=== PATIENT | male | born 1940 | race Caucasian/White ===

== ENCOUNTER 2022-03-23 20:04 | Inpatient (IN) ==
[2022-03-23] MEDS ORDERED: IOPAMIDOL 100 ML BOTTLE IV ONE (20:05)
[2022-03-23] MEDS ORDERED: 0.9 % SODIUM CHLORIDE 1,000 ML IV ONE ×3 (20:19→20:53)
[2022-03-23 20:40] LABS: POC Calcium, Ionized 1.08 (1.16-1.32); POC Creatinine 1.1 (0.6-1.2); POC Potassium 4.2 (3.3-5.1)
[2022-03-23 21:31] LABS: Basophils # (Auto) 0.03 K/mcL (0.00-0.30); Basophils % (Auto) 0.2 % (0.0-2.0); Eosinophils # (Auto) 0.02 K/mcL (0.00-0.70); Eosinophils % (Auto) 0.1 % (0.0-7.0); Hematocrit 37.9 % (40.1-51.0); Hemoglobin 13.5 g/dL (13.7-17.5); Lymphocytes # (Auto) 0.77 K/mcL (1.50-4.80); Lymphocytes % (Auto) 5.6 % (15.5-49.0); Mean Cell Volume 93.3 fL (80.0-100.0); Mean Corpuscular HGB Conc 35.6 g/dL (31.0-36.0); Mean Platelet Volume 9.4 fL (8.8-12.5); Monocytes # (Auto) 0.87 K/mcL (0.10-0.90); Monocytes % (Auto) 6.4 % (1.0-12.0); Neutrophils % (Auto) 87.1 % (38.0-78.0); Platelet Count 138 K/mcL (140-440); RBC 4.06 M/mcL (4.63-6.08); Red Cell Distribution Width 11.9 % (11.5-14.5); WBC 13.7 K/mcL (4.5-11.0)
[2022-03-23] MEDS ORDERED: ACETAMINOPHEN 1,000 MG/100 ML BAG IV ONE (21:48)
[2022-03-23] MEDS ORDERED: VANCOMYCIN 1,000 MG in 0.9 % SODIUM CHLORIDE 250 ML IV ONE (22:06)
[2022-03-23] MEDS ORDERED: morphine 4 MG/ML VIAL IV ONE (22:39)
[2022-03-23 22:46] LABS: Appearance,Urine CLEAR (Clear); Bilirubin,Urine Negative (Negative); Color,Urine YELLOW; Culture Indicated,Urine No; Glucose,Urine (UA) 50 mg/dL (Negative); Ketones,Urine 20 mg/dL (Negative); Leukocyte Esterase,Urine Negative /uL (Negative); Nitrate,Urine Negative (Negative); Protein,Urine Negative (Negative); Specific Gravity,Urine 1.025 (1.000-1.035); Urine Blood Negative (Negative)
--- NOTE | 2022-03-24 04:32 | Emergency Department Note ---
Weakness HPI General Chief complaint: Weakness Stated complaint: decreased level of conciousness, Ground level fall Time Seen by Provider: 03/23/22 20:39 Source: EMS Mode of arrival: EMS Limitations: no limitations History of Present Illness HPI Narrative: Narrative: 82-year-old male with a history of generalized weakness for the past 24 hours. History obtained from patient and primarily his son who says he suleiman triplett appears more weak and a bit "off" since yesterday. He has had 2 falls but unaware of any head injury. Patient is on blood thinners. He has a history of hypertension heart disease with some coronary stents Parkinson's and some UTI in the past. Son was not sure if perhaps he may have had a TIA or UTI. At baseline he has tremors but no reports of other acute focal neurologic deficits. At baseline patient is generally alert and oriented. Patient does appear weak and is able to answer some simple yes or no questions at this time. Denies any pain or injury denies any obvious cardiorespiratory complaints or abdominal complaints. Detail history difficult to obtain from patient Related Data Home Medications Medication Instructions Recorded Confirmed multivitamin (Multiple Vitamins 1 tab PO QAM 04/08/20 11/07/21 tablet) omega-3 fatty acids 1,000 mg 1,000 mg PO QDAY 04/08/20 11/07/21 capsule aspirin 81 mg tablet,delayed 81 mg PO QDAY 09/06/20 11/07/21 release cholecalciferol (vitamin D3) 125 125 mcg PO QDAY 09/06/20 11/07/21 mcg (5,000 unit) capsule coenzyme Q10 100 mg capsule 100 mg PO QDAY 09/06/20 11/07/21 fluocinolone acetonide oil 0.01 % 5 drp otic (ear) BID PRN Ear Wax 09/06/20 11/07/21 ear drops acetaminophen 325 mg tablet 650 mg PO Q4H PRN KENDALL, Mild-Mod 09/21/20 11/07/21 Joint Pain, Fever>99.9 magnesium hydroxide 400 mg/5 mL 30 ml PO QDAY PRN constipation 09/21/20 11/07/21 oral suspension (Milk of Magnesia) polyethylene glycol 3350 17 17 g PO QDAY PRN constipation 09/21/20 11/07/21 gram/dose oral powder (ClearLax) carbidopa ER 36.25 mg-levodopa 145 3 cap PO TID 09/08/21 11/07/21 mg capsule,extended release (Rytary) chlorhexidine gluconate 4 % 1 applic topical QDAY 09/08/21 11/07/21 topical liquid (Hibiclens) guaifenesin 600 mg tablet, 600 mg PO Q12H 09/08/21 11/07/21 extended release 12 hr ketorolac 0.5 % eye drops 1 drp ophthalmic (eye) Q12H 09/08/21 11/07/21 miconazole nitrate 2 % topical See Rx Instructions topical 09/08/21 11/07/21 powder (Remedy Antifungal) .COMPLEX zinc oxide-cod liver oil topical 1 applic topical BID 09/08/21 11/07/21 ointment Previous Rx's Medication Instructions Recorded docusate sodium 100 mg capsule 100 mg PO QDAY 90 days #90 caps 04/13/20 tamsulosin 0.4 mg capsule 0.4 mg PO BID 90 days #180 caps 04/21/21 clonidine HCl 0.1 mg tablet 0.1 mg PO Q8H PRN hypertensive 04/27/21 emergency #90 tabs levothyroxine 50 mcg tablet 50 mcg PO QDAY 90 days #90 tabs 10/10/21 lisinopril 20 mg tablet 20 mg PO BID 90 days #180 tabs 10/10/21 meloxicam 15 mg tablet 15 mg PO QDAY 90 days #90 tabs 10/10/21 venlafaxine 75 mg tablet 75 mg PO BID 90 days #180 tabs 11/08/21 metoprolol tartrate 100 mg tablet 100 mg PO BID 90 days #180 tabs 11/10/21 amlodipine 2.5 mg tablet 2.5 mg PO QDAY #90 tabs 12/13/21 hydrocodone 5 mg-acetaminophen 325 1 tab PO TID PRN pain #90 tabs 02/24/22 mg tablet nystatin 100,000 unit/gram topical 1 applic topical BID #60 grams 03/07/22 powder Allergies Allergy/AdvReac Type Severity Reaction Status Date / Time No Known Drug Allergies Allergy Verified 03/23/22 20:12 Review of Systems ROS ROS Narrative: Narrative: Limitations: ROS unobtainable due to patients medical condition PFSH Narrative Patient History Narrative: Narrative: Medical/Surgical/Family History All Active Problems (Updated 03/24/22 @ 04:35 by Gutierrez Roblero DO) Cellulitis of back (Acute) Sepsis (Acute) Generalized weakness (Acute) Falls frequently (Acute) Head injury (Acute) Fall (Acute) Abrasion of forehead (Acute) Fall (Acute) Rib pain on left side (Acute) Medicare annual wellness visit, initial (Acute) Chronic pain (Chronic) Lumbar radiculopathy (Chronic) Lumbar stenosis with neurogenic claudication (Chronic) Lower back pain (Chronic) Constipation (Chronic) BPH (benign prostatic hyperplasia) (Chronic) Hypothyroid (Chronic) Thyroid gland disease (Chronic) Joint pain (Chronic) High cholesterol (Chronic) High blood pressure (Chronic) Parkinsons disease (Chronic ~2012) History of heart artery stent (Chronic ~2008) Heart attack (Chronic ~2008) Daytime sleepiness (Chronic) Muscle pain (Chronic ~2012) Arthritis (Chronic) Anxiety (Chronic) Medical History Anxiety Arthritis BPH (benign prostatic hyperplasia) Chronic pain Constipation Daytime sleepiness Heart attack (~2008) High blood pressure High cholesterol Hypothyroid Joint pain Lower back pain Lumbar radiculopathy Lumbar stenosis with neurogenic claudication Medicare annual wellness visit, initial Muscle pain (~2012) Parkinsons disease (~2012) Thyroid gland disease Surgical History History of heart artery stent (~2008) Family History Aunt Dementia Mother Arthritis, rheumatoid Parkinson disease Father Polycystic kidney disease Hypertension Sister Parkinson disease Social History Smoking Status: Former smoker Alcohol Intake Frequency: a few times a week Substance Use: does not use Exam Narrative Narrative: Narrative: Constitutional: normally developed, ill-appearing Head: Normocephalic, atraumatic, Eyes: No Icterus, PERRLA EOMI ENT: Dry mucus membranes, Neck: Supple, no midline tenderness Cardiac: Normal heart sounds, palpable peripheral pulses, no peripheral edema Pulmonary: Normal respiratory effort. Breath sounds clear, no wheeze, rhonchi, rales, Gastrointestinal: Abdomen soft, non-distended, non-tender, Musculoskeletal: No gross deformities, range of motion intact in all 4 extremities, however has equal generalized weakness throughout. Patient has a contusion and hematoma and bruise to his right upper thoracic back/posterior axillary area. Skin: warm, dry. Patient has a large area of cellulitis appearance with erythema warmth to his lumbar area. He has a sacral decubitus ulcer. Neuro: Alert and orientedx2 has generalized weakness but no gross focal deficit, has baseline tremors to his upper extremities.. General Limitations: no limitations Course Vital Signs Vital signs: Vital Signs Temperature 37.4 C H 03/23/22 20:06 Pulse Rate 103 H 03/23/22 20:06 Respiratory Rate 33 H 03/23/22 20:06 Blood Pressure 130/52 03/23/22 20:06 Pulse Oximetry (%) 91 03/23/22 20:06 Oxygen Delivery Method 03/23/22 20:06 Temperature 37.2 C 03/24/22 06:34 Pulse Rate 73 03/24/22 06:35 Respiratory Rate 27 H 03/24/22 06:35 Blood Pressure 135/55 03/24/22 06:31 Pulse Oximetry (%) 94 03/24/22 06:35 Oxygen Delivery Method 03/23/22 21:14 [facility] MDM Narrative Medical decision making narrative: Narrative: 82-year-old male with generalized weakness x for at least 24 hours family was concerned he is fallen twice a mostly suspected an infection or UTI also were not sure if this could be a TIA. Work-up is initiated. Does not meet any stroke criteria and no obvious focal deficits. CT of the head per direct radiology no acute findings and no evidence of traumatic bleed CBC does have a leukocytosis 13.7 VBG shows mild alkalosis 7.53 normal lactic acid 1.1 Twelve-lead EKG heart rate 103, does appear to be sinus although there is a fair bit of artifact, less likely flutter. QRS QTC within normal, no STEMI criteria Patient did spike a low-grade fever was given Tylenol he has received, patient has received just over 2 L of fluid consistent with 30 cc/kg ideal body weight adjusted for elevated BMI He was given vancomycin for what appears to be cellulitis to his low back/lumbar region X-ray per my preliminary interpretation no obvious acute cardiopulmonary process but question possible clavicle fracture or irregular lucent appearance, Clavicle x-ray per my preliminary interpretation no obvious fracture although does have arthritis of the shoulde Given his multiple falls on thinners and contusions did obtain CT of his chest abdomen pelvis: Per direct radiology no acute traumatic injury however there does appear to be incidental "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 Grossman, he stated this can simply be further evaluated and managed as an outpatient, patient does not require transfer/admission to a higher level of care from a vascular standpoint, can continue to be admitted here at [facility] for his sepsis/infection if necessary Reevaluation vitals are all stable his trace tachycardia has resolved, he also appears more comfortable. Discussed with mixing house operator as well as patient's family, will hold him in the ER overnight with plans to admit here in the morning when bed becomes available. 0700: end of my shift signed out to Dr Stanton Lab Data Result diagrams: 03/23/22 20:55 Labs: Lab Results 03/23/22 03/23/22 03/23/22 Range/Units 20:35 20:35 20:55 WBC 13.7 H (4.5-11.0) K/mcL RBC 4.06 L (4.63-6.08) M/mcL Hgb 13.5 L (13.7-17.5) g/dL Hct 37.9 L (40.1-51.0) % POC Hct 38.0 L (41-55) MCV 93.3 (80.0-100.0) fL MCH 33.3 (26.0-34.0) pg MCHC 35.6 (31.0-36.0) g/dL RDW 11.9 (11.5-14.5) % Plt Count 138 L (140-440) K/mcL MPV 9.4 (8.8-12.5) fL Immature Gran % (Auto) 0.6 H (0.0-0.5) % Neut % (Auto) 87.1 H (38.0-78.0) % Lymph % (Auto) 5.6 L (15.5-49.0) % Hamilton % (Auto) 6.4 (1.0-12.0) % Eos % (Auto) 0.1 (0.0-7.0) % Baso % (Auto) 0.2 (0.0-2.0) % Lymph # (Auto) 0.77 L (1.50-4.80) K/mcL Hamilton # (Auto) 0.87 (0.10-0.90) K/mcL Eos # (Auto) 0.02 (0.00-0.70) K/mcL Baso # (Auto) 0.03 (0.00-0.30) K/mcL Immature Gran # 0.08 H (0.00-0.05) K/mcl Absolute Neutrophils 11.89 H (1.80-8.00) K/mcL POC VBG pH 7.53 H (7.32-7.42) POC VBG pCO2 at Temp 30.6 L (41-51) POC VBG pO2 120 H (25-40) POC VBG HCO3 25.5 (24-28) POC VBG Total CO2 26.0 (25-29) POC Venous O2 Sat 99.0 H (40-70) POC VBG Base Excess 3.0 H (-2-2) VBG Lactic Acid 1.1 (0.5-2) POC Sodium 130 L (133-145) POC Potassium 4.2 (3.3-5.1) POC Chloride 98 (96-108) POC Total CO2 25.0 (22-30) POC BUN 30 H (6-20) POC Creatinine 1.1 (0.6-1.2) POC Glucose 144 H (70-105) POC WB Ioniz Calcium 1.08 L (1.16-1.32) Urine Color Urine Appearance (Clear) Urine pH (5.0-9.0) Ur Specific [place] (1.000-1.035) Urine Protein (Negative) mg/dL Urine Glucose (UA) (Negative) mg/dL Urine Ketones (Negative) mg/dL Urine Occult Blood (Negative) mg/dL Urine Nitrate (Negative) Urine Bilirubin (Negative) mg/dL Urine Urobilinogen mg/dL Ur Leukocyte Esterase (Negative) /uL Ur Culture Indicated? POC Troponin I (0.00-0.08) 03/23/22 03/23/22 Range/Units 21:01 21:52 WBC (4.5-11.0) K/mcL RBC (4.63-6.08) M/mcL Hgb (13.7-17.5) g/dL Hct (40.1-51.0) % POC Hct (41-55) MCV (80.0-100.0) fL MCH (26.0-34.0) pg MCHC (31.0-36.0) g/dL RDW (11.5-14.5) % Plt Count (140-440) K/mcL MPV (8.8-12.5) fL Immature Gran % (Auto) (0.0-0.5) % Neut % (Auto) (38.0-78.0) % Lymph % (Auto) (15.5-49.0) % Hamilton % (Auto) (1.0-12.0) % Eos % (Auto) (0.0-7.0) % Baso % (Auto) (0.0-2.0) % Lymph # (Auto) (1.50-4.80) K/mcL Hamilton # (Auto) (0.10-0.90) K/mcL Eos # (Auto) (0.00-0.70) K/mcL Baso # (Auto) (0.00-0.30) K/mcL Immature Gran # (0.00-0.05) K/mcl Absolute Neutrophils (1.80-8.00) K/mcL POC VBG pH (7.32-7.42) POC VBG pCO2 at Temp (41-51) POC VBG pO2 (25-40) POC VBG HCO3 (24-28) POC VBG Total CO2 (25-29) POC Venous O2 Sat (40-70) POC VBG Base Excess (-2-2) VBG Lactic Acid (0.5-2) POC Sodium (133-145) POC Potassium (3.3-5.1) POC Chloride (96-108) POC Total CO2 (22-30) POC BUN (6-20) POC Creatinine (0.6-1.2) POC Glucose (70-105) POC WB Ioniz Calcium (1.16-1.32) Urine Color Yellow Urine Appearance Clear (Clear) Urine pH 5.0 (5.0-9.0) Ur Specific [place] 1.025 (1.000-1.035) Urine Protein Negative (Negative) mg/dL Urine Glucose (UA) 50 A (Negative) mg/dL Urine Ketones 20 A (Negative) mg/dL Urine Occult Blood Negative (Negative) mg/dL Urine Nitrate Negative (Negative) Urine Bilirubin Negative (Negative) mg/dL Urine Urobilinogen 2.0 A mg/dL Ur Leukocyte Esterase Negative (Negative) /uL Ur Culture Indicated? No POC Troponin I < 0.02 (0.00-0.08) Discharge Plan Patient/Caregiver Discharge Instructions Pt seen by OFFICE SUPERVISOR/PA only: No Clinical Impression: Cellulitis of back, Sepsis, Generalized weakness, Falls frequently Patient Disposition: Xfer As Inpt ([facility]) Condition: Serious Follow up with: Marcus Dawson MD [Primary Care Provider] - Prescriptions: No Action tamsulosin 0.4 mg capsule 0.4 mg PO BID 90 Days Qty: 180 3RF clonidine HCl 0.1 mg tablet 0.1 mg PO Q8H PRN (Reason: hypertensive emergency) Qty: 90 0RF Rx Instructions: As needed for BP > 160/100 levothyroxine 50 mcg tablet 50 mcg PO QDAY 90 Days Qty: 90 3RF lisinopril 20 mg tablet 20 mg PO BID 90 Days Qty: 180 3RF meloxicam 15 mg tablet 15 mg PO QDAY 90 Days Qty: 90 3RF venlafaxine 75 mg tablet 75 mg PO BID 90 Days Qty: 180 1RF metoprolol tartrate 100 mg tablet 100 mg PO BID 90 Days Qty: 180 3RF amlodipine 2.5 mg tablet 2.5 mg PO QDAY Qty: 90 1RF hydrocodone-acetaminophen 5-325 mg tablet 1 tab PO TID PRN (Reason: pain) Qty: 90 0RF nystatin 100,000 unit/gram powder 1 applic topical BID Qty: 60 1RF docusate sodium 100 mg capsule 100 mg PO QDAY 90 Days Qty: 90 1RF omega-3 fatty acids 1,000 mg capsule 1,000 mg PO QDAY multivitamin [Multiple Vitamins] Tablet 1 tab PO QAM aspirin 81 mg tablet,delayed release (DR/EC) 81 mg PO QDAY coenzyme Q10 100 mg capsule 100 mg PO QDAY cholecalciferol (vitamin D3) 125 mcg (5,000 unit) capsule 125 mcg PO QDAY fluocinolone acetonide oil 0.01 % drops 5 drp otic (ear) BID PRN (Reason: Ear Wax) Rytary 36.25-145 mg capsule, extended release 3 cap PO TID ketorolac 0.5 % drops 1 drp ophthalmic (eye) Q12H Label Comments: [NO ORIGINAL SIG] zinc oxide-cod liver oil Ointment 1 applic topical BID Label Comments: Desitin Ointment guaifenesin 600 mg tablet extended release 12hr 600 mg PO Q12H chlorhexidine gluconate [Hibiclens] 4 % liquid 1 applic topical QDAY Remedy Antifungal 2 % powder See Rx Instructions topical .COMPLEX Rx Instructions: topical; acetaminophen 325 mg tablet 650 mg PO Q4H PRN (Reason: KENDALL, Mild-Mod Joint Pain, Fever>99.9) polyethylene glycol 3350 [ClearLax] 17 gram/dose powder 17 g PO QDAY PRN (Reason: constipation) magnesium hydroxide [Milk of Magnesia] 400 mg/5 mL suspension 30 ml PO QDAY PRN (Reason: constipation)
--- NOTE | 2022-03-24 06:06 | Cat Scan Report ---
INDICATION: mult falls, trunkal bruising, also ?clavicle fx COMPARISON: Lumbar MRI scan dated 06/21/2020 TECHNIQUE: Axial images were obtained through the chest,abdomen and pelvis. Sagittally and coronally reformatted images. 90ml Isovue 370 injected intravenously. Oral contrast material was not administered FINDINGS: Examination was initially interpreted by [facility] Chest CT: Lungs:No pulmonary contusion or focal pulmonary parenchymal infiltrate. No posttraumatic abnormality. There is mild dependent atelectasis and probable mild lower lobe bronchiectasis Mediastinum:No mediastinal hematoma. Thoracic aorta is negative. No dissection or aneurysmal dilatation Heart:No significant cardiomegaly. No pericardial effusion. There is severe coronary artery calcification Pleura:There is no pneumothorax or hemothorax Axilla, supraclavicular regions, chest wall:No chest wall hematoma. No acute or focal abnormality. Musculoskeletal:No thoracic compression fracture. No acute rib fracture. Scapula and clavicles are negative. Sternum is normal. Severe degenerative joint disease in the glenohumeral joint bilaterally Abdomen/Pelvis: Liver:No hepatic injury. No hepatic laceration or fracture. No perihepatic hemorrhage Gallbladder, bilary:Multiple calcified gallstones. No gallbladder wall thickening or pericholecystic fluid. No bile duct dilatation Spleen:Spleen is negative. No splenic injury. No perisplenic hemorrhage. Normal enhancement of splenic and portal veins Pancreas:Pancreas is atrophic. There is no pancreatic mass. No posttraumatic abnormality Adrenal glands:Negative Kidneys,ureters,bladder:No perinephric hemorrhage. No posttraumatic abnormality. There is a 3 cm left lower pole renal cyst. No hydroureter. No ureteral calculus. No evidence for ruptured bladder. Probable [place] diverticulum in the superior aspects of the bladder. Gastrointestinal:Prominent fecal material within the colon consistent with constipation. There may be distal colonic impaction. There is no diverticulitis. No detectable colonic mass Negative small bowel. No mechanical small bowel obstruction. No bowel wall thickening. No focal abnormality. Negative stomach and duodenum. No focal abnormality. Appendix: The appendix is negative. No evidence for appendicitis Vascular:Severe calcified atherosclerotic plaque throughout the abdominal aorta as well as the common and internal iliac arteries. There is calcification of the common femoral arteries. There is no abdominal aortic dilatation. No abdominal aortic aneurysm. There is discontinuity of calcification in the infrarenal abdominal aorta. Right posterolateral penetrating ulcer is possible. There is no evidence for leaking aneurysm. There is calcification at the origins of the celiac trunk and superior mesenteric artery. There is probable stenosis at the origin of the superior mesenteric artery. Renal arteries are calcified with probable bilateral renal artery stenosis. Lymphatic:No pathologic retroperitoneal or mesenteric adenopathy Mesentery, peritoneum:No free intraperitoneal fluid. No intra-abdominal abscess. There is no hemoperitoneum or pneumoperitoneum Reproductive:Prostate is not significantly enlarged Musculoskeletal:Compression deformity of the L2 vertebral body. This was demonstrated on 06/21/2020. There is mild interval progression. There is severe multilevel degenerative disc disease in the lumbar spine. Probable chronic fractures of the right L1, L2, L3 transverse processes. Sacrum is negative. Pelvis is negative. No acute fracture. Hips are negative. No anterior abdominal wall or inguinal hernia. No significant subcutaneous hematoma or focal abnormality. IMPRESSION: 1. No acute posttraumatic abnormality 2. Mild bilateral dependent atelectasis 3. Severe degenerative joint disease in the glenohumeral joint bilaterally 4. Mild compression deformity of L2 vertebral body. Chronic fractures of the L1-L3 right transverse processes 5. Severe degenerative disc disease 6. Extensive atherosclerotic calcification with severe coronary artery calcification. 7. Discontinuity of the infrarenal abdominal aortic calcification. Penetrating ulcer is possible. There is no evidence for leaking aneurysm or acute abnormality 8. 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 Cholelithiasis 10. Findings consistent with constipation or mild distal colonic impaction The exam was performed using radiation dose optimization techniques including, but not limited to, automated exposure control, adjustment of the mA and/or kV according to patient size and use of iterative reconstruction technique. Interpreted and Authenticated by: Mickey Stephens 03/24/22
--- NOTE | 2022-03-24 06:43 | XRay Report ---
INDICATION: ?fracture on CXR TECHNIQUE: 2 view right clavicle COMPARISON: Chest x-ray dated 03/23/2022 FINDINGS: Negative right clavicle. No acute fracture. There is severe degenerative disease within the right glenohumeral joint. No acute fracture or dislocation IMPRESSION: No acute abnormality. No right clavicle fracture Interpreted and Authenticated by: Mickey Stephens 03/24/22
--- NOTE | 2022-03-24 06:44 | XRay Report ---
INDICATION: weakness, falls TECHNIQUE: AP portable upright chest x-ray COMPARISON: Previous chest x-ray dated 09/08/2020 FINDINGS: Lungs:Lungs are negative. No focal pulmonary parenchymal infiltrate or mass Heart, vascular:Heart size is unchanged. No evidence for congestive heart failure. Thoracic aorta is ectatic and tortuous Mediastinum, elizabeth:No mediastinal widening. No hilar mass Pleura:No pleural fluid. No pleural-based mass or calcification Skeletal:No acute rib fracture. Severe degenerative disease in both glenohumeral joints IMPRESSION: No acute abnormality Interpreted and Authenticated by: Mickey Stephens 03/24/22
--- NOTE | 2022-03-24 06:47 | Cat Scan Report ---
INDICATION: falls on thinners, confusion COMPARISON: Previous brain CT scan dated 01/17/2021 TECHNIQUE: Axial noncontrast-enhanced images through the brain. Sagittally and coronally reformatted images. FINDINGS: Examination was initially interpreted by [facility] Patient has uncontrollable tremors and there is some motion induced image degradation Cerebral hemispheres:Negative. No intra-axial abnormality. No intra-axial hematoma. No localized mass effect.Brain volume is within normal limits for age. Periventricular white matter is negative without significant attenuation abnormality. Brainstem and cerebellum:No intra-axial abnormality Extra-axial:No acute hemorrhage. No subdural or epidural hematoma. No subarachnoid hemorrhage. Basilar cisterns are normal Calvarial:No calvarial fracture. No lytic lesion. No scalp hematoma. No soft tissue gas or foreign body Temporal bones are negative. No destructive lesions Soft tissue, orbits, sinuses:Inflammatory disease with air-fluid level in a left sphenoid sinus. IMPRESSION: 1. No acute intracranial abnormality. No intracranial hemorrhage 2. Mild left sphenoid sinusitis The exam was performed using radiation dose optimization techniques including, but not limited to, automated exposure control, adjustment of the mA and/or kV according to patient size and use of iterative reconstruction technique. Interpreted and Authenticated by: Mickey Stephens 03/24/22
--- NOTE | 2022-03-24 08:44 | Emergency Department Note ---
Course Course Course Narrative: Assumed care from Dr. Roblero. Patient is awaiting admission for cellulitis of the back. Please see Dr. Castellanos's note for more detail. "Narrative: 82-year-old male with a history of generalized weakness for the past 24 hours. History obtained from patient and primarily his son who says he simply appears more weak and a bit "off" since yesterday. He has had 2 falls but unaware of any head injury. Patient is on blood thinners. He has a history of hypertension heart disease with some coronary stents Parkinson's and some UTI in the past. Son was not sure if perhaps he may have had a TIA or UTI. At baseline he has tremors but no reports of other acute focal neurologic defi cits. At baseline patient is generally alert and oriented. Patient does appear weak and is able to answer some simple yes or no questions at this time. Denies any pain or injury denies any obvious cardiorespiratory complaints or abdominal complaints. Detail history difficult to obtain from patient" Patient has received normal saline IV x3 and vancomycin 1 g IV for the diagnosis of cellulitis of the back. On examination patient has stage I decubitus ulcer to gluteal folds with black/blue discoloration he has surrounding redness redness and mild edema and warmth from gluteal region to mid posterior chest. We will repeat the labs. Will give Rocephin 1 g IV and contact wound clinic as well. We will talk to hospitalist when the bed is available for admission. Case discussed with Dr. landrum who will evaluate the patient for admission. Second dose of vancomycin 1 g IV given Vital Signs Vital signs: Vital Signs Temperature 99.4 F H 03/23/22 20:06 Pulse Rate 103 H 03/23/22 20:06 Respiratory Rate 33 H 03/23/22 20:06 Blood Pressure 130/52 03/23/22 20:06 Pulse Oximetry (%) 91 03/23/22 20:06 Oxygen Delivery Method 03/23/22 20:06 Temperature 97.8 F 03/25/22 03:40 Pulse Rate 79 03/25/22 03:40 Respiratory Rate 16 03/25/22 03:40 Blood Pressure 148/77 03/25/22 03:40 Pulse Oximetry (%) 90 03/25/22 03:40 Oxygen Delivery Method 03/25/22 03:40 MDM MDM Narrative Medical decision making narrative: Narrative: Lab Data Result diagrams: 03/25/22 06:33 03/24/22 09:07 Labs: Lab Results 03/23/22 03/23/22 03/23/22 Range/Units 20:35 20:35 20:55 WBC 13.7 H (4.5-11.0) K/mcL RBC 4.06 L (4.63-6.08) M/mcL Hgb 13.5 L (13.7-17.5) g/dL Hct 37.9 L (40.1-51.0) % POC Hct 38.0 L (41-55) MCV 93.3 (80.0-100.0) fL MCH 33.3 (26.0-34.0) pg MCHC 35.6 (31.0-36.0) g/dL RDW 11.9 (11.5-14.5) % Plt Count 138 L (140-440) K/mcL MPV 9.4 (8.8-12.5) fL Immature Gran % (Auto) 0.6 H (0.0-0.5) % Neut % (Auto) 87.1 H (38.0-78.0) % Lymph % (Auto) 5.6 L (15.5-49.0) % [place] % (Auto) 6.4 (1.0-12.0) % Eos % (Auto) 0.1 (0.0-7.0) % Baso % (Auto) 0.2 (0.0-2.0) % Lymph # (Auto) 0.77 L (1.50-4.80) K/mcL [place] # (Auto) 0.87 (0.10-0.90) K/mcL Eos # (Auto) 0.02 (0.00-0.70) K/mcL Baso # (Auto) 0.03 (0.00-0.30) K/mcL Immature Gran # 0.08 H (0.00-0.05) K/mcl Absolute Neutrophils 11.89 H (1.80-8.00) K/mcL POC VBG pH 7.53 H (7.32-7.42) POC VBG pCO2 at Temp 30.6 L (41-51) POC VBG pO2 120 H (25-40) POC VBG HCO3 25.5 (24-28) POC VBG Total CO2 26.0 (25-29) POC Venous O2 Sat 99.0 H (40-70) POC VBG Base Excess 3.0 H (-2-2) VBG Lactic Acid 1.1 (0.5-2) POC Sodium 130 L (133-145) Sodium (133-145) mmol/L POC Potassium 4.2 (3.3-5.1) Potassium (3.3-5.1) mmol/L POC Chloride 98 (96-108) Chloride (96-108) mmol/L Carbon Dioxide (22-30) mmol/L POC Total CO2 25.0 (22-30) Anion Gap (8.0-16.0) POC BUN 30 H (6-20) BUN (8-23) mg/dL Creatinine (0.7-1.2) mg/dL POC Creatinine 1.1 (0.6-1.2) GFR Calculation Glucose (70-105) mg/dL POC Glucose 144 H (70-105) Calcium (8.6-10.4) mg/dL POC WB Ioniz Calcium 1.08 L (1.16-1.32) Total Bilirubin (0.1-1.0) mg/dL AST (<40) U/L ALT (<40) U/L Alkaline Phosphatase (39-117) U/L C-Reactive Protein (0.03-0.80) mg/dL Total Protein (5.9-8.4) gm/dL Albumin (3.2-5.2) gm/dL Globulin (2.2-3.7) gm/dL Albumin/Globulin Ratio (1.0-2.3) Procalcitonin (<0.10) ng/mL Urine Color Urine Appearance (Clear) Urine pH (5.0-9.0) Ur Specific [place] (1.000-1.035) Urine Protein (Negative) mg/dL Urine Glucose (UA) (Negative) mg/dL Urine Ketones (Negative) mg/dL Urine Occult Blood (Negative) mg/dL Urine Nitrate (Negative) Urine Bilirubin (Negative) mg/dL Urine Urobilinogen mg/dL Ur Leukocyte Esterase (Negative) /uL Ur Culture Indicated? POC Troponin I (0.00-0.08) 09/29/22 09/29/22 09/30/22 Range/Units 21:01 21:52 09:07 WBC (4.5-11.0) K/mcL RBC (4.63-6.08) M/mcL Hgb (13.7-17.5) g/dL Hct (40.1-51.0) % POC Hct (41-55) MCV (80.0-100.0) fL MCH (26.0-34.0) pg MCHC (31.0-36.0) g/dL RDW (11.5-14.5) % Plt Count (140-440) K/mcL MPV (8.8-12.5) fL Immature Gran % (Auto) (0.0-0.5) % Neut % (Auto) (38.0-78.0) % Lymph % (Auto) (15.5-49.0) % [place] % (Auto) (1.0-12.0) % Eos % (Auto) (0.0-7.0) % Baso % (Auto) (0.0-2.0) % Lymph # (Auto) (1.50-4.80) K/mcL [place] # (Auto) (0.10-0.90) K/mcL Eos # (Auto) (0.00-0.70) K/mcL Baso # (Auto) (0.00-0.30) K/mcL Immature Gran # (0.00-0.05) K/mcl Absolute Neutrophils (1.80-8.00) K/mcL POC VBG pH (7.32-7.42) POC VBG pCO2 at Temp (41-51) POC VBG pO2 (25-40) POC VBG HCO3 (24-28) POC VBG Total CO2 (25-29) POC Venous O2 Sat (40-70) POC VBG Base Excess (-2-2) VBG Lactic Acid 1.2 (0.5-2) POC Sodium (133-145) Sodium (133-145) mmol/L POC Potassium (3.3-5.1) Potassium (3.3-5.1) mmol/L POC Chloride (96-108) Chloride (96-108) mmol/L Carbon Dioxide (22-30) mmol/L POC Total CO2 (22-30) Anion Gap (8.0-16.0) POC BUN (6-20) BUN (8-23) mg/dL Creatinine (0.7-1.2) mg/dL POC Creatinine (0.6-1.2) GFR Calculation Glucose (70-105) mg/dL POC Glucose (70-105) Calcium (8.6-10.4) mg/dL POC WB Ioniz Calcium (1.16-1.32) Total Bilirubin (0.1-1.0) mg/dL AST (<40) U/L ALT (<40) U/L Alkaline Phosphatase (39-117) U/L C-Reactive Protein (0.03-0.80) mg/dL Total Protein (5.9-8.4) gm/dL Albumin (3.2-5.2) gm/dL Globulin (2.2-3.7) gm/dL Albumin/Globulin Ratio (1.0-2.3) Procalcitonin (<0.10) ng/mL Urine Color Yellow Urine Appearance Clear (Clear) Urine pH 5.0 (5.0-9.0) Ur Specific [place] 1.025 (1.000-1.035) Urine Protein Negative (Negative) mg/dL Urine Glucose (UA) 50 A (Negative) mg/dL Urine Ketones 20 A (Negative) mg/dL Urine Occult Blood Negative (Negative) mg/dL Urine Nitrate Negative (Negative) Urine Bilirubin Negative (Negative) mg/dL Urine Urobilinogen 2.0 A mg/dL Ur Leukocyte Esterase Negative (Negative) /uL Ur Culture Indicated? No POC Troponin I < 0.02 (0.00-0.08) 03/24/22 03/24/22 03/24/22 Range/Units 09:07 09:07 09:07 WBC 11.6 H (4.5-11.0) K/mcL RBC 3.75 L (4.63-6.08) M/mcL Hgb 12.5 L (13.7-17.5) g/dL Hct 35.4 L (40.1-51.0) % POC Hct (41-55) MCV 94.4 (80.0-100.0) fL MCH 33.3 (26.0-34.0) pg MCHC 35.3 (31.0-36.0) g/dL RDW 12.2 (11.5-14.5) % Plt Count 122 L (140-440) K/mcL MPV 8.9 (8.8-12.5) fL Immature Gran % (Auto) 0.4 (0.0-0.5) % Neut % (Auto) 80.7 H (38.0-78.0) % Lymph % (Auto) 9.5 L (15.5-49.0) % [place] % (Auto) 8.0 (1.0-12.0) % Eos % (Auto) 1.1 (0.0-7.0) % Baso % (Auto) 0.3 (0.0-2.0) % Lymph # (Auto) 1.10 L (1.50-4.80) K/mcL [place] # (Auto) 0.92 H (0.10-0.90) K/mcL Eos # (Auto) 0.13 (0.00-0.70) K/mcL Baso # (Auto) 0.03 (0.00-0.30) K/mcL Immature Gran # 0.05 (0.00-0.05) K/mcl Absolute Neutrophils 9.33 H (1.80-8.00) K/mcL POC VBG pH (7.32-7.42) POC VBG pCO2 at Temp (41-51) POC VBG pO2 (25-40) POC VBG HCO3 (24-28) POC VBG Total CO2 (25-29) POC Venous O2 Sat (40-70) POC VBG Base Excess (-2-2) VBG Lactic Acid (0.5-2) POC Sodium (133-145) Sodium 131 L (133-145) mmol/L POC Potassium (3.3-5.1) Potassium 4.2 (3.3-5.1) mmol/L POC Chloride (96-108) Chloride 97 (96-108) mmol/L Carbon Dioxide 24 (22-30) mmol/L POC Total CO2 (22-30) Anion Gap 10.0 (8.0-16.0) POC BUN (6-20) BUN 22 (8-23) mg/dL Creatinine 0.9 (0.7-1.2) mg/dL POC Creatinine (0.6-1.2) GFR Calculation 79 Glucose 105 (70-105) mg/dL POC Glucose (70-105) Calcium 8.3 L (8.6-10.4) mg/dL POC WB Ioniz Calcium (1.16-1.32) Total Bilirubin 1.7 H (0.1-1.0) mg/dL AST 21 (<40) U/L ALT < 5 (<40) U/L Alkaline Phosphatase 85 (39-117) U/L C-Reactive Protein 15.50 H (0.03-0.80) mg/dL Total Protein 5.9 (5.9-8.4) gm/dL Albumin 3.2 (3.2-5.2) gm/dL Globulin 2.7 (2.2-3.7) gm/dL Albumin/Globulin Ratio 1.2 (1.0-2.3) Procalcitonin (<0.10) ng/mL Urine Color Urine Appearance (Clear) Urine pH (5.0-9.0) Ur Specific [place] (1.000-1.035) Urine Protein (Negative) mg/dL Urine Glucose (UA) (Negative) mg/dL Urine Ketones (Negative) mg/dL Urine Occult Blood (Negative) mg/dL Urine Nitrate (Negative) Urine Bilirubin (Negative) mg/dL Urine Urobilinogen mg/dL Ur Leukocyte Esterase (Negative) /uL Ur Culture Indicated? POC Troponin I (0.00-0.08) 03/24/22 Range/Units 09:07 WBC (4.5-11.0) K/mcL RBC (4.63-6.08) M/mcL Hgb (13.7-17.5) g/dL Hct (40.1-51.0) % POC Hct (41-55) MCV (80.0-100.0) fL MCH (26.0-34.0) pg MCHC (31.0-36.0) g/dL RDW (11.5-14.5) % Plt Count (140-440) K/mcL MPV (8.8-12.5) fL Immature Gran % (Auto) (0.0-0.5) % Neut % (Auto) (38.0-78.0) % Lymph % (Auto) (15.5-49.0) % [place] % (Auto) (1.0-12.0) % Eos % (Auto) (0.0-7.0) % Baso % (Auto) (0.0-2.0) % Lymph # (Auto) (1.50-4.80) K/mcL [place] # (Auto) (0.10-0.90) K/mcL Eos # (Auto) (0.00-0.70) K/mcL Baso # (Auto) (0.00-0.30) K/mcL Immature Gran # (0.00-0.05) K/mcl Absolute Neutrophils (1.80-8.00) K/mcL POC VBG pH (7.32-7.42) POC VBG pCO2 at Temp (41-51) POC VBG pO2 (25-40) POC VBG HCO3 (24-28) POC VBG Total CO2 (25-29) POC Venous O2 Sat (40-70) POC VBG Base Excess (-2-2) VBG Lactic Acid (0.5-2) POC Sodium (133-145) Sodium (133-145) mmol/L POC Potassium (3.3-5.1) Potassium (3.3-5.1) mmol/L POC Chloride (96-108) Chloride (96-108) mmol/L Carbon Dioxide (22-30) mmol/L POC Total CO2 (22-30) Anion Gap (8.0-16.0) POC BUN (6-20) BUN (8-23) mg/dL Creatinine (0.7-1.2) mg/dL POC Creatinine (0.6-1.2) GFR Calculation Glucose (70-105) mg/dL POC Glucose (70-105) Calcium (8.6-10.4) mg/dL POC WB Ioniz Calcium (1.16-1.32) Total Bilirubin (0.1-1.0) mg/dL AST (<40) U/L ALT (<40) U/L Alkaline Phosphatase (39-117) U/L C-Reactive Protein (0.03-0.80) mg/dL Total Protein (5.9-8.4) gm/dL Albumin (3.2-5.2) gm/dL Globulin (2.2-3.7) gm/dL Albumin/Globulin Ratio (1.0-2.3) Procalcitonin 0.15 H (<0.10) ng/mL Urine Color Urine Appearance (Clear) Urine pH (5.0-9.0) Ur Specific [place] (1.000-1.035) Urine Protein (Negative) mg/dL Urine Glucose (UA) (Negative) mg/dL Urine Ketones (Negative) mg/dL Urine Occult Blood (Negative) mg/dL Urine Nitrate (Negative) Urine Bilirubin (Negative) mg/dL Urine Urobilinogen mg/dL Ur Leukocyte Esterase (Negative) /uL Ur Culture Indicated? POC Troponin I (0.00-0.08) ED POC Tests ED POC Tests: HIMA - SARS Antigen Negative Discharge Plan Patient/Caregiver Discharge Instructions Pt seen by [employer]PECTOR/PA only: No Clinical Impression: Cellulitis of back, Sepsis, Generalized weakness, Falls frequently Patient Disposition: Xfer As Inpt ([facility]) Condition: Serious Discharge Date/Time: 03/24/22 14:08
[2022-03-24] MEDS ORDERED: cefTRIAXone 1 GM VIAL IV ONE (08:47)
[2022-03-24] MEDS ORDERED: VENLAFAXINE 75 MG TABLET PO SCH (09:00)
[2022-03-24] MEDS ORDERED: amLODIPine 5 MG TABLET PO SCH (09:00)
[2022-03-24] MEDS ORDERED: LEVOTHYROXINE 50 MCG TABLET PO SCH (09:00)
[2022-03-24] MEDS ORDERED: METOPROLOL TARTRATE 50 MG TABLET PO SCH (09:00)
[2022-03-24] MEDS ORDERED: LISINOPRIL 20 MG TABLET PO SCH (09:00)
[2022-03-24] MEDS ORDERED: MELOXICAM 7.5 MG TABLET PO SCH (09:00)
[2022-03-24 09:57] LABS: Basophils # (Auto) 0.03 K/mcL (0.00-0.30); Basophils % (Auto) 0.3 % (0.0-2.0); Eosinophils # (Auto) 0.13 K/mcL (0.00-0.70); Eosinophils % (Auto) 1.1 % (0.0-7.0); Hematocrit 35.4 % (40.1-51.0); Hemoglobin 12.5 g/dL (13.7-17.5); Lymphocytes % (Auto) 9.5 % (15.5-49.0); Mean Cell Volume 94.4 fL (80.0-100.0); Mean Corpuscular HGB Conc 35.3 g/dL (31.0-36.0); Mean Platelet Volume 8.9 fL (8.8-12.5); Monocytes # (Auto) 0.92 K/mcL (0.10-0.90); Neutrophils % (Auto) 80.7 % (38.0-78.0); Platelet Count 122 K/mcL (140-440); RBC 3.75 M/mcL (4.63-6.08); Red Cell Distribution Width 12.2 % (11.5-14.5); WBC 11.6 K/mcL (4.5-11.0)
[2022-03-24] MEDS: ASPIRIN 81 MG TAB.CHEW CHEWED SCH (10:00)
[2022-03-24] MEDS: DOCUSATE SODIUM 100 MG CAPSULE PO SCH ×2 (10:00→20:53)
[2022-03-24] MEDS: HYDROcodone/APAP 5/325MG TABLET PO SCH ×2 (10:00→20:57)
[2022-03-24 10:19] LABS: ALT/SGPT < 5 U/L (<40); AST/SGOT 21 U/L (<40); Albumin 3.2 gm/dL (3.2-5.2); Albumin/Globulin Ratio 1.2 (1.0-2.3); Alkaline Phosphatase 85 U/L (39-117); Bilirubin,Total 1.7 mg/dL (0.1-1.0); Blood Urea Nitrogen 22 mg/dL (8-23); Calcium 8.3 mg/dL (8.6-10.4); Carbon Dioxide 24 mmol/L (22-30); Chloride 97 mmol/L (96-108); Globulin 2.7 gm/dL (2.2-3.7); Glomerular Filtration Rate 79; Glucose 105 mg/dL (70-105)
[2022-03-24] MEDS ORDERED: VANCOMYCIN 1,000 MG in 0.9 % SODIUM CHLORIDE 250 ML IV ONE (12:58)
--- NOTE | 2022-03-24 13:10 | Internal Med History&Physical ---
HPI History of Present Illness Patient information: Note initiated : 03/24/22 at 1:04 pm Service Date, if different from initiated Date: [] Patient: Kris Graham a 82 y/o M admitted on for decreased level of conciousness, Ground level fall. Chief Complaint: [] History of present illness: Mr. Graham is a 82 year old M Presents ED overnight with the son for generalized weakness the past 1 to 2 days. Most of the history obtained from the chart as patient is a poor historian. Along the weakness has had some shaking and falls couple to several times. Per the son he just been off. In the ED he was evaluated found to have a mild fever. Had a mildly diet dehydrated and a mild hyponatremia. He had a leukocytosis. Urinalysis was unremarkable it is felt to have some cellulitis of the back with some pressure injuries ulcers in the buttocks area. Patient started on antibiotics. Blood cultures were obtained. Review of Systems: Pertinent positives as above. Denies headache/nausea/vomiting/chest or abdominal pain/cough/dyspnea/diarrhea. Remaining 10 point review of system reviewed negative PFSH PFSH All Active Problems (Updated 03/24/22 @ 04:35 by Gutierrez Roblero DO) Cellulitis of back (Acute) Sepsis (Acute) Generalized weakness (Acute) Falls frequently (Acute) Head injury (Acute) Fall (Acute) Abrasion of forehead (Acute) Fall (Acute) Rib pain on left side (Acute) Medicare annual wellness visit, initial (Acute) Chronic pain (Chronic) Lumbar radiculopathy (Chronic) Lumbar stenosis with neurogenic claudication (Chronic) Lower back pain (Chronic) Constipation (Chronic) BPH (benign prostatic hyperplasia) (Chronic) Hypothyroid (Chronic) Thyroid gland disease (Chronic) Joint pain (Chronic) High cholesterol (Chronic) High blood pressure (Chronic) Parkinsons disease (Chronic ~2012) History of heart artery stent (Chronic ~2008) Heart attack (Chronic ~2008) Daytime sleepiness (Chronic) Muscle pain (Chronic ~2012) Arthritis (Chronic) Anxiety (Chronic) Medical History Anxiety Arthritis BPH (benign prostatic hyperplasia) Chronic pain Constipation Daytime sleepiness Heart attack (~2008) High blood pressure High cholesterol Hypothyroid Joint pain Lower back pain Lumbar radiculopathy Lumbar stenosis with neurogenic claudication Medicare annual wellness visit, initial Muscle pain (~2012) Parkinsons disease (~2012) Thyroid gland disease Surgical History History of heart artery stent (~2008) Family History Aunt Dementia Mother Arthritis, rheumatoid Parkinson disease Father Polycystic kidney disease Hypertension Sister Parkinson disease Social History household members: alone housing: assisted living facility marital status: education level: college occupational status: retired occupation: Director Card smoking status: Former smoker alcohol intake frequency: a few times a week substance use type: does not use MEDS/ALLERGIES Home Medications and Allergies Home Medications Medication Instructions Recorded Confirmed Type multivitamin (Multiple Vitamins 1 tab PO QAM 04/08/20 03/24/22 History tablet) omega-3 fatty acids 1,000 mg 1,000 mg PO QDAY 04/08/20 11/07/21 History capsule docusate sodium 100 mg capsule 100 mg PO QDAY 90 days #90 caps 04/13/20 03/24/22 Rx aspirin 81 mg tablet,delayed 81 mg PO QDAY 09/06/20 03/24/22 History release cholecalciferol (vitamin D3) 125 125 mcg PO QDAY 09/06/20 03/24/22 History mcg (5,000 unit) capsule coenzyme Q10 100 mg capsule 100 mg PO QDAY 09/06/20 03/24/22 History fluocinolone acetonide oil 0.01 % 5 drp otic (ear) BID PRN Ear Wax 09/06/20 11/07/21 History ear drops acetaminophen 325 mg tablet 650 mg PO Q4H PRN KENDALL, Mild-Mod 09/21/20 03/24/22 History Joint Pain, Fever>99.9 magnesium hydroxide 400 mg/5 mL 30 ml PO QDAY PRN constipation 09/21/20 03/24/22 History oral suspension (Milk of Magnesia) polyethylene glycol 3350 17 17 g PO QDAY PRN constipation 09/21/20 03/24/22 History gram/dose oral powder (ClearLax) tamsulosin 0.4 mg capsule 0.4 mg PO BID 90 days #180 caps 04/21/21 03/24/22 Rx clonidine HCl 0.1 mg tablet 0.1 mg PO Q8H PRN hypertensive 04/27/21 03/24/22 Rx emergency #90 tabs carbidopa ER 36.25 mg-levodopa 145 4 cap PO TID 09/08/21 03/24/22 History mg capsule,extended release (Rytary) chlorhexidine gluconate 4 % 1 applic topical QDAY 09/08/21 11/07/21 History topical liquid (Hibiclens) guaifenesin 600 mg tablet, 600 mg PO Q12H 09/08/21 03/24/22 History extended release 12 hr ketorolac 0.5 % eye drops 1 drp ophthalmic (eye) Q12H 09/08/21 11/07/21 History miconazole nitrate 2 % topical See Rx Instructions topical 09/08/21 03/24/22 History powder (Remedy Antifungal) .COMPLEX zinc oxide-cod liver oil topical 1 applic topical BID 09/08/21 11/07/21 History ointment levothyroxine 50 mcg tablet 50 mcg PO QDAY 90 days #90 tabs 10/10/21 03/24/22 Rx lisinopril 20 mg tablet 20 mg PO BID 90 days #180 tabs 10/10/21 03/24/22 Rx meloxicam 15 mg tablet 15 mg PO QDAY 90 days #90 tabs 10/10/21 03/24/22 Rx venlafaxine 75 mg tablet 75 mg PO BID 90 days #180 tabs 11/08/21 03/24/22 Rx metoprolol tartrate 100 mg tablet 100 mg PO BID 90 days #180 tabs 11/10/21 03/24/22 Rx amlodipine 2.5 mg tablet 2.5 mg PO QDAY #90 tabs 12/13/21 03/24/22 Rx hydrocodone 5 mg-acetaminophen 325 1 tab PO TID PRN pain #90 tabs 02/24/22 03/24/22 Rx mg tablet nystatin 100,000 unit/gram topical 1 applic topical BID #60 grams 03/07/22 03/24/22 Rx powder Allergies Allergy/AdvReac Type Severity Reaction Status Date / Time No Known Drug Allergies Allergy Verified 03/23/22 20:12 EXAM Constitutional Vitals: Temp Pulse Resp BP Pulse Ox O2 Del Method 99 F 64 22 109/53 92 03/24/22 06:34 03/24/22 12:01 03/24/22 12:01 03/24/22 12:01 03/24/22 12:01 03/23/22 21:14 Exam: General: Alert, Awake, No acute Distress Eyes/N/T: EOMI, PERRL, Head/Neck: neck supple, normocephalic atraumatic CV: RRR, No murmurs, normal s1/s2 Pulm: Clear b/l, no wheezing/rhonchi/rales Abd: soft, nontender, +BS x4 Ext: no clubbing/cyanosis/edema Neuro: Alert, no focal deficits, moves all extremities, CN 2-12 grossly intact, , sensations intact b/l upper/lower, tremorsbaseline Skin: warm/dry DATA Data Completed and Pending Labs: Labs from last 24 hours 03/24/22 03/24/22 03/24/22 09:07 09:07 09:07 WBC 11.6 H RBC 3.75 L Hgb 12.5 L Hct 35.4 L POC Hct MCV 94.4 MCH 33.3 MCHC 35.3 RDW 12.2 Plt Count 122 L MPV 8.9 Immature Gran % (Auto) 0.4 Neut % (Auto) 80.7 H Lymph % (Auto) 9.5 L [place] % (Auto) 8.0 Eos % (Auto) 1.1 Baso % (Auto) 0.3 Lymph # (Auto) 1.10 L [place] # (Auto) 0.92 H Eos # (Auto) 0.13 Baso # (Auto) 0.03 Immature Gran # 0.05 Absolute Neutrophils 9.33 H POC VBG pH POC VBG pCO2 at Temp POC VBG pO2 POC VBG HCO3 POC VBG Total CO2 POC Venous O2 Sat POC VBG Base Excess VBG Lactic Acid 1.2 POC Sodium Sodium 131 L POC Potassium Potassium 4.2 POC Chloride Chloride 97 Carbon Dioxide 24 POC Total CO2 Anion Gap 10.0 POC BUN BUN 22 Creatinine 0.9 POC Creatinine GFR Calculation 79 Glucose 105 POC Glucose Calcium 8.3 L POC WB Ioniz Calcium Total Bilirubin 1.7 H AST 21 ALT < 5 Alkaline Phosphatase 85 Total Protein 5.9 Albumin 3.2 Globulin 2.7 Albumin/Globulin Ratio 1.2 Urine Color Urine Appearance Urine pH Ur Specific [place] Urine Protein Urine Glucose (UA) Urine Ketones Urine Occult Blood Urine Nitrate Urine Bilirubin Urine Urobilinogen Ur Leukocyte Esterase Ur Culture Indicated? POC Troponin I 03/23/22 03/23/22 03/23/22 21:52 21:01 20:55 WBC 13.7 H RBC 4.06 L Hgb 13.5 L Hct 37.9 L POC Hct MCV 93.3 MCH 33.3 MCHC 35.6 RDW 11.9 Plt Count 138 L MPV 9.4 Immature Gran % (Auto) 0.6 H Neut % (Auto) 87.1 H Lymph % (Auto) 5.6 L [place] % (Auto) 6.4 Eos % (Auto) 0.1 Baso % (Auto) 0.2 Lymph # (Auto) 0.77 L [place] # (Auto) 0.87 Eos # (Auto) 0.02 Baso # (Auto) 0.03 Immature Gran # 0.08 H Absolute Neutrophils 11.89 H POC VBG pH POC VBG pCO2 at Temp POC VBG pO2 POC VBG HCO3 POC VBG Total CO2 POC Venous O2 Sat POC VBG Base Excess VBG Lactic Acid POC Sodium Sodium POC Potassium Potassium POC Chloride Chloride Carbon Dioxide POC Total CO2 Anion Gap POC BUN BUN Creatinine POC Creatinine GFR Calculation Glucose POC Glucose Calcium POC WB Ioniz Calcium Total Bilirubin AST ALT Alkaline Phosphatase Total Protein Albumin Globulin Albumin/Globulin Ratio Urine Color Yellow Urine Appearance Clear Urine pH 5.0 Ur Specific [place] 1.025 Urine Protein Negative Urine Glucose (UA) 50 A Urine Ketones 20 A Urine Occult Blood Negative Urine Nitrate Negative Urine Bilirubin Negative Urine Urobilinogen 2.0 A Ur Leukocyte Esterase Negative Ur Culture Indicated? No POC Troponin I < 0.02 03/23/22 03/23/22 20:35 20:35 WBC RBC Hgb Hct POC Hct 38.0 L MCV MCH MCHC RDW Plt Count MPV Immature Gran % (Auto) Neut % (Auto) Lymph % (Auto) [place] % (Auto) Eos % (Auto) Baso % (Auto) Lymph # (Auto) [place] # (Auto) Eos # (Auto) Baso # (Auto) Immature Gran # Absolute Neutrophils POC VBG pH 7.53 H POC VBG pCO2 at Temp 30.6 L POC VBG pO2 120 H POC VBG HCO3 25.5 POC VBG Total CO2 26.0 POC Venous O2 Sat 99.0 H POC VBG Base Excess 3.0 H VBG Lactic Acid 1.1 POC Sodium 130 L Sodium POC Potassium 4.2 Potassium POC Chloride 98 Chloride Carbon Dioxide POC Total CO2 25.0 Anion Gap POC BUN 30 H BUN Creatinine POC Creatinine 1.1 GFR Calculation Glucose POC Glucose 144 H Calcium POC WB Ioniz Calcium 1.08 L Total Bilirubin AST ALT Alkaline Phosphatase Total Protein Albumin Globulin Albumin/Globulin Ratio Urine Color Urine Appearance Urine pH Ur Specific [place] Urine Protein Urine Glucose (UA) Urine Ketones Urine Occult Blood Urine Nitrate Urine Bilirubin Urine Urobilinogen Ur Leukocyte Esterase Ur Culture Indicated? POC Troponin I A/P Narrative A/P Narrative: A: *Cellulitis of the lower back/buttock with pressure injury/ulcer: *Sepsis: *Volume depletion: *Atelectasis: *Hyponatremia: *Parkinson's dz: *CAD w/stent: *HTN: *Hypothyroidism: *DJD: *Incidental fibnding on CT: case discussed with Dr. Grossman who said nothing urgent and to f/u in his office -per CT "Discontinuity of the infrarenal abdominal aortic calcification. Penetrating ulcer is possible. There is no evidence for leaking aneurysm or acute abnormality" P: -IVF -empiric ABx, pending BC -Wound care -f/u sodium -IS -cont norvasc/BB, restart lisinopril after f/u BP & renal fxn -cont ASA -cont sinement -PT/OT -CM for placement needs -f/u with Dr. Grossman -ppx: Lovenox Time Spent With Patient Time: Total time spent is greater than 50% in coordination of care (as documented) at patient's floor/unit and/or counseling patient: Total time spent with greater than 50% in coordination of care (as documented) at patient's floor/unit and/or counseling patient:: 50 - 70 minutes
[2022-03-24] MEDS ORDERED: POTASSIUM CHLORIDE 40 MEQ in DEXTROSE 5% IN WATER 500 ML IV PRN (15:02)
[2022-03-24] MEDS ORDERED: POLYETHYLENE GLYCOL 3350 17 GM PACKET PO PRN (15:02)
[2022-03-24] MEDS ORDERED: SENNOSIDES 1 TABLET PO PRN (15:02)
[2022-03-24] MEDS ORDERED: POTASSIUM CHLORIDE 20 MEQ TABLET PO PRN ×2 (15:02)
[2022-03-24] MEDS ORDERED: IPRATROPIUM/ALBUTEROL 3 ML AMPUL.NEB NEB PRN (15:02)
[2022-03-24] MEDS ORDERED: cloNIDine HCL 0.1 MG TABLET PO PRN (15:02)
[2022-03-24] MEDS ORDERED: morphine 4 MG/ML VIAL IV PRN (15:02)
[2022-03-24] MEDS ORDERED: ONDANSETRON 4 MG/2 ML VIAL IV PRN (15:02)
[2022-03-24] MEDS ORDERED: MAGNESIUM SULFATE 2 GM/50 ML BAG IV PRN (15:02)
[2022-03-24] MEDS: 0.9 % SODIUM CHLORIDE 10 ML SYRINGE IV SCH ×2 (15:30→20:54)
[2022-03-24] MEDS ORDERED: cefTRIAXone 1 GM VIAL IV SCH (15:30)
[2022-03-24] MEDS: CARBIDOPA LEVODOPA PO SCH ×2 (15:54→20:53)
[2022-03-24] MEDS: TAMSULOSIN 0.4 MG CAPSULE PO SCH (20:52)
[2022-03-24] MEDS: METOPROLOL TARTRATE 50 MG TABLET PO SCH (20:52)
[2022-03-24] MEDS: VENLAFAXINE 75 MG TABLET PO SCH (20:52)
[2022-03-24] MEDS: MICONAZOLE NITRATE 2% TOPICAL SCH (20:53)
[2022-03-25] MEDS: 0.9 % SODIUM CHLORIDE 10 ML SYRINGE IV SCH ×3 (05:23→20:38)
[2022-03-25 07:19] LABS: Basophils # (Auto) 0.04 K/mcL (0.00-0.30); Basophils % (Auto) 0.5 % (0.0-2.0); Eosinophils # (Auto) 0.32 K/mcL (0.00-0.70); Eosinophils % (Auto) 3.7 % (0.0-7.0); Hematocrit 34.6 % (40.1-51.0); Hemoglobin 12.3 g/dL (13.7-17.5); Lymphocytes # (Auto) 1.12 K/mcL (1.50-4.80); Lymphocytes % (Auto) 12.9 % (15.5-49.0); Mean Cell Volume 94.5 fL (80.0-100.0); Mean Corpuscular HGB Conc 35.5 g/dL (31.0-36.0); Mean Platelet Volume 9.1 fL (8.8-12.5); Monocytes # (Auto) 0.78 K/mcL (0.10-0.90); Neutrophils % (Auto) 73.3 % (38.0-78.0); Platelet Count 129 K/mcL (140-440); RBC 3.66 M/mcL (4.63-6.08); Red Cell Distribution Width 12.1 % (11.5-14.5); WBC 8.7 K/mcL (4.5-11.0)
[2022-03-25 07:42] LABS: ALT/SGPT < 5 U/L (<40); AST/SGOT 24 U/L (<40); Albumin 3.1 gm/dL (3.2-5.2); Albumin/Globulin Ratio 1.4 (1.0-2.3); Alkaline Phosphatase 75 U/L (39-117); Bilirubin,Direct 0.3 mg/dL (<0.3); Bilirubin,Total 0.9 mg/dL (0.1-1.0); Blood Urea Nitrogen 23 mg/dL (8-23); Calcium 8.3 mg/dL (8.6-10.4); Carbon Dioxide 26 mmol/L (22-30); Chloride 98 mmol/L (96-108); Globulin 2.2 gm/dL (2.2-3.7); Glomerular Filtration Rate 79; Glucose 100 mg/dL (70-105); Lactate Dehydrogenase 198 U/L (135-225); Phosphorous 2.5 mg/dL (2.5-4.5); Triglycerides 122 mg/dL (<150); Uric Acid 3.1 mg/dL (2.5-8.0)
--- NOTE | 2022-03-25 07:59 | Internal Med Progress Note ---
SUBJECTIVE Subjective Patient information: Note initiated : 03/25/22 at 7:55 am Service Date, if different from initiated Date: [] Patient: Kris Graham 82 y/o M admitted on 03/24/22 for decreased level of conciousness, Ground level fall. Chief Complaint: [] Interval history: History of present illness: Mr. Graham is a 82 year old M Presents ED overnight with the son for generalized weakness the past 1 to 2 days. Most of the history obtained from the chart as patient is a poor historian. Along the weakness has had some shaking and falls couple to several times. Per the son he just been off. In the ED he was evaluated found to have a mild fever. Had a mildly diet dehydrated and a mild hyponatremia. He had a leukocytosis. Urinalysis was unremarkable it is felt to have some cellulitis of the back with some pressure injuries ulcers in the buttocks area. Patient started on antibiotics. Blood cultures were obtained. 03/25 No overnight event or new complaints. Leukocytosis improving. Hyponatremia. CRP elevated. Procalcitonin low. Review of Systems: denies headache/fever/chills/nausea/vomiting/chest or abdominal pain/cough/ dyspnea/diarrhea. Otherwise see above. Constitutional Vitals: Vital Signs Temp Pulse Resp BP Pulse Ox O2 Del Method 97.8 F 79 16 148/77 90 03/25/22 03:40 03/25/22 03:40 03/25/22 03:40 03/25/22 03:40 03/25/22 03:40 03/25/22 03:40 Period Temp Pulse Resp BP Sys/Norris Pulse Ox O2 Del Method O2 Flow Rate Last 24 Hr 97.6 F-98.4 F 57-87 16-33 104-153/52-139 87-96 Room Air-Room Air Intake and Output 03/24/22 03/25/22 03/25/22 21:59 05:59 13:59 Intake Total 250 150 Output Total 176 1 Balance 74 149 Weight 98.43 kg Intake & Output: Intake & Output 03/24/22 03/25/22 03/25/22 21:59 05:59 13:59 Intake Total 250 150 Output Total 176 1 Balance 74 149 Weight 98.43 kg Intake: IV 250 Vancomycin 1,000 mg In Sodium 250 Chloride 0.9% 250 ml @ 250 mls/ hr IV ONCE ONE Rx#:[id number] Oral 0 150 Output: Void Amount 175 # of times incontinent of urine 1 1 Other: Meal apple sauce Percent of Meal Consumed 100% Feeding Ability Total Assistance Urine Appearance Clear Urine Color [place] Stool Size Copious Stool Color Brown Stool Consistency Formed Exam: General: Alert, Awake, No acute Distress, obese Eyes/N/T: EOMI, Head/Neck: neck supple, CV: RRR, No murmurs, Pulm: Clear b/l, no wheezing/rhonchi/rales Abd: soft, nontender, +BS x4 Back: mild erythema of lower back with some pressure injuries ulcers in the buttocks area Ext: no clubbing/cyanosis/edema Neuro: Alert, no focal deficits, moves all extremities, , tremorsbaseline Skin: warm/dry OBJ DATA Labs CBC & Chem 7: 03/25/22 06:33 03/25/22 06:33 Labs: Abnormal Lab Results 03/25/22 03/25/22 03/24/22 06:33 06:33 09:07 WBC RBC 3.66 L Hgb 12.3 L Hct 34.6 L POC Hct Plt Count 129 L Immature Gran % (Auto) 0.6 H Neut % (Auto) Lymph % (Auto) 12.9 L Lymph # (Auto) 1.12 L [place] # (Auto) Immature Gran # Absolute Neutrophils POC VBG pH POC VBG pCO2 at Temp POC VBG pO2 POC Venous O2 Sat POC VBG Base Excess POC Sodium Sodium 132 L POC BUN POC Glucose Calcium 8.3 L POC WB Ioniz Calcium Total Bilirubin Direct Bilirubin 0.3 H C-Reactive Protein Total Protein 5.3 L Albumin 3.1 L Procalcitonin 0.15 H Urine Glucose (UA) Urine Ketones Urine Urobilinogen 03/24/22 03/24/22 03/24/22 09:07 09:07 09:07 WBC 11.6 H RBC 3.75 L Hgb 12.5 L Hct 35.4 L POC Hct Plt Count 122 L Immature Gran % (Auto) Neut % (Auto) 80.7 H Lymph % (Auto) 9.5 L Lymph # (Auto) 1.10 L [place] # (Auto) 0.92 H Immature Gran # Absolute Neutrophils 9.33 H POC VBG pH POC VBG pCO2 at Temp POC VBG pO2 POC Venous O2 Sat POC VBG Base Excess POC Sodium Sodium 131 L POC BUN POC Glucose Calcium 8.3 L POC WB Ioniz Calcium Total Bilirubin 1.7 H Direct Bilirubin C-Reactive Protein 15.50 H Total Protein Albumin Procalcitonin Urine Glucose (UA) Urine Ketones Urine Urobilinogen 03/23/22 03/23/22 03/23/22 21:52 20:55 20:35 WBC 13.7 H RBC 4.06 L Hgb 13.5 L Hct 37.9 L POC Hct 38.0 L Plt Count 138 L Immature Gran % (Auto) 0.6 H Neut % (Auto) 87.1 H Lymph % (Auto) 5.6 L Lymph # (Auto) 0.77 L [place] # (Auto) Immature Gran # 0.08 H Absolute Neutrophils 11.89 H POC VBG pH POC VBG pCO2 at Temp POC VBG pO2 POC Venous O2 Sat POC VBG Base Excess POC Sodium 130 L Sodium POC BUN 30 H POC Glucose 144 H Calcium POC WB Ioniz Calcium 1.08 L Total Bilirubin Direct Bilirubin C-Reactive Protein Total Protein Albumin Procalcitonin Urine Glucose (UA) 50 A Urine Ketones 20 A Urine Urobilinogen 2.0 A 03/23/22 20:35 WBC RBC Hgb Hct POC Hct Plt Count Immature Gran % (Auto) Neut % (Auto) Lymph % (Auto) Lymph # (Auto) [place] # (Auto) Immature Gran # Absolute Neutrophils POC VBG pH 7.53 H POC VBG pCO2 at Temp 30.6 L POC VBG pO2 120 H POC Venous O2 Sat 99.0 H POC VBG Base Excess 3.0 H POC Sodium Sodium POC BUN POC Glucose Calcium POC WB Ioniz Calcium Total Bilirubin Direct Bilirubin C-Reactive Protein Total Protein Albumin Procalcitonin Urine Glucose (UA) Urine Ketones Urine Urobilinogen Meds: Medications Hydrocodone Bitart/Acetaminophen (Hydrocodone/Apap 5/325mg Tablet) 1 tab PO Q6HP [facility]; Protocol Last Admin: 03/24/22 20:57 Dose: 1 tab Albuterol/Ipratropium (Ipratropium/Albuterol 3 Ml Ampul.Neb) 3 ml NEB Q4HP PRN PRN Reason: Shortness Of Breath Aspirin (Aspirin 81 Mg Tab.Chew) 81 mg CHEWED DAILY [facility] Last Admin: 03/24/22 10:00 Dose: 81 mg Clonidine HCl (Clonidine Hcl 0.1 Mg Tablet) 0.1 mg PO Q8H PRN PRN Reason: hypertensive emergency Docusate Sodium (Docusate Sodium 100 Mg Capsule) 100 mg PO DAILY [facility] Last Admin: 03/24/22 10:00 Dose: 100 mg Docusate Sodium (Docusate Sodium 100 Mg Capsule) 100 mg PO BID [facility] Last Admin: 03/24/22 20:53 Dose: 100 mg Enoxaparin Sodium (Enoxaparin 40 Mg/0.4 Ml Syringe) 40 mg SQ DAILY [facility] Potassium Chloride 40 meq/ (Dextrose) 520 mls @ 130 mls/hr IV UD PRN PRN Reason: Potassium < 3 Magnesium Sulfate (Magnesium Sulfate) 2 gm in 50 mls @ 50 mls/hr IV UD PRN PRN Reason: Magnesium </= 1.6 Ceftriaxone Sodium 2 gm/ (Dextrose) 50 mls @ 100 mls/hr IV Q24H [facility]; Protocol Levothyroxine Sodium (Levothyroxine 50 Mcg Tablet) 50 mcg PO QDAY [facility] Metoprolol Tartrate (Metoprolol Tartrate 50 Mg Tablet) 100 mg PO BID [facility] Last Admin: 03/24/22 20:52 Dose: 100 mg Morphine Sulfate (Morphine 4 Mg/Ml Vial) 0 mg IV Q3HP PRN PRN Reason: Pain Ondansetron HCl (Ondansetron 4 Mg/2 Ml Vial) 4 mg IV Q4HP PRN PRN Reason: Nausea And Vomiting Carbidopa-Levodopa [ (Rytary] 36.25-145 Mg) 4 dose PO TID [facility] Last Admin: 03/24/22 20:53 Dose: 4 dose (Miconazole Nitrate [Remedy Antifungal] 2 % Powder 1 dose TOPICAL BID [facility] Last Admin: 03/24/22 20:53 Dose: Not Given Polyethylene Glycol (Polyethylene Glycol 3350 17 Gm Packet) 17 gm PO DAILYP PRN PRN Reason: Constipation Potassium Chloride (Potassium Chloride 20 Meq Tablet) 40 meq PO UD PRN PRN Reason: Potssium is 3-3.5 Potassium Chloride (Potassium Chloride 20 Meq Tablet) 40 meq PO UD PRN PRN Reason: Potassium < 3 Senna (Sennosides 1 Tablet) 2 tab PO DAILYP PRN PRN Reason: Constipation Sodium Chloride (0.9 % Sodium Chloride 10 Ml Syringe) 10 ml IV Q8 [facility] Last Admin: 03/25/22 05:23 Dose: 10 ml Tamsulosin HCl (Tamsulosin 0.4 Mg Capsule) 0.4 mg PO BID [facility] Last Admin: 03/24/22 20:52 Dose: 0.4 mg Venlafaxine HCl (Venlafaxine 75 Mg Tablet) 75 mg PO BID [facility] Last Admin: 03/24/22 20:52 Dose: 75 mg A/P Narrative A/P Narrative: A: *Cellulitis of the lower back/buttock with pressure injury/ulcer: *Sepsis: -Leukocytosis resolved *Volume depletion: *Generalized weakness/deconditioning: *Atelectasis: *Hyponatremia: *Parkinson's dz: *CAD w/stent: *HTN: *Hypothyroidism: *DJD: *Obesity: BMI 30 *Incidental fibnding on CT: case discussed with Dr. Grossman who said nothing urgent and to f/u in his office -per CT "Discontinuity of the infrarenal abdominal aortic calcification. Penetrating ulcer is possible. There is no evidence for leaking aneurysm or acut e abnormality" P: -s/p IVF -empiric ABx, pending BC -Wound care -f/u sodium -IS -cont norvasc/BB, restart lisinopril after f/u BP & renal fxn -cont ASA -cont sinement -PT/OT -CM for placement needs -f/u with Dr. Grossman -ppx: Lovenox Time Spent With Patient Time: Total time spent is greater than 50% in coordination of care (as documented) at patient's floor/unit and/or counseling patient: Total time spent with greater than 50% in coordination of care (as documented) at patient's floor/unit and/or counseling patient:: 25 - 35 minutes QUALITY Stroke Symptom Onset Unknown: No VTE Deep Vein Thrombosis/Pulmonary Embolism Present on Admission: No
[2022-03-25] MEDS: METOPROLOL TARTRATE 50 MG TABLET PO SCH ×2 (08:51→20:38)
[2022-03-25] MEDS: DOCUSATE SODIUM 100 MG CAPSULE PO SCH ×3 (08:52→20:39)
[2022-03-25] MEDS: amLODIPine 5 MG TABLET PO SCH (08:52)
[2022-03-25] MEDS: ASPIRIN 81 MG TAB.CHEW CHEWED SCH (08:52)
[2022-03-25] MEDS: VENLAFAXINE 75 MG TABLET PO SCH ×2 (08:52→20:39)
[2022-03-25] MEDS: TAMSULOSIN 0.4 MG CAPSULE PO SCH ×2 (08:52→20:39)
[2022-03-25] MEDS: CARBIDOPA LEVODOPA PO SCH ×3 (08:53→20:48)
[2022-03-25] MEDS: SODIUM CHLORIDE 1 GM TABLET PO SCH ×3 (08:53→20:39)
[2022-03-25] MEDS: MICONAZOLE NITRATE 2% TOPICAL SCH ×2 (08:53→21:04)
[2022-03-25] MEDS: ENOXAPARIN 40 MG/0.4 ML SYRINGE SQ SCH (08:53)
[2022-03-25] MEDS: LEVOTHYROXINE 50 MCG TABLET PO SCH (08:53)
[2022-03-25] MEDS: cefTRIAXone 2 GM in DEXTROSE 5% IN WATER 50 ML IV SCH (09:08)
--- NOTE | 2022-03-25 09:54 | EKG ---
[facility] Test Date: 2022-03-23 Pat Name: Kris Graham Department: ED Room: Gender: Male Manager Social Services: MARYSOL : 1940 Requested By: Gutierrez Roblero Order Number: [id number] Reading MD: Lenny Ramirez Measurements Intervals [place]rix Rate: 103 P: LA: QRS: -36 QRSD: 95 T: 73 QT: 338 QTc: 443 Interpretive Statements SINUS TACHYCARDIA Electronically Signed On 03-25-2022 9:53:45 PDT by Lenny Ramirez /store/[email or web address]/[id number]
[2022-03-25] MEDS ORDERED: cloNIDine HCL 0.1 MG TABLET PO PRN (10:11)
[2022-03-25] MEDS: HYDROcodone/APAP 5/325MG TABLET PO SCH (20:39)
[2022-03-26] MEDS: 0.9 % SODIUM CHLORIDE 10 ML SYRINGE IV SCH ×3 (05:50→21:26)
[2022-03-26 07:04] LABS: Basophils # (Auto) 0.05 K/mcL (0.00-0.30); Basophils % (Auto) 0.7 % (0.0-2.0); Eosinophils # (Auto) 0.34 K/mcL (0.00-0.70); Eosinophils % (Auto) 4.7 % (0.0-7.0); Hematocrit 36.9 % (40.1-51.0); Lymphocytes # (Auto) 1.57 K/mcL (1.50-4.80); Lymphocytes % (Auto) 21.9 % (15.5-49.0); Mean Cell Volume 94.4 fL (80.0-100.0); Mean Corpuscular HGB Conc 35.2 g/dL (31.0-36.0); Mean Platelet Volume 8.8 fL (8.8-12.5); Monocytes # (Auto) 0.63 K/mcL (0.10-0.90); Monocytes % (Auto) 8.8 % (1.0-12.0); Neutrophils % (Auto) 62.6 % (38.0-78.0); Platelet Count 153 K/mcL (140-440); RBC 3.91 M/mcL (4.63-6.08); WBC 7.2 K/mcL (4.5-11.0)
[2022-03-26 07:29] LABS: Blood Urea Nitrogen 23 mg/dL (8-23); Calcium 8.7 mg/dL (8.6-10.4); Carbon Dioxide 26 mmol/L (22-30); Chloride 98 mmol/L (96-108); Glomerular Filtration Rate 79; Glucose 94 mg/dL (70-105)
--- NOTE | 2022-03-26 07:44 | Internal Med Progress Note ---
SUBJECTIVE Subjective Patient information: Note initiated : 03/26/22 at 7:42 am Service Date, if different from initiated Date: [] Patient: Kris Graham 82 y/o M admitted on 03/24/22 for decreased level of conciousness, Ground level fall. Chief Complaint: [] Interval history: History of present illness: Mr. Graham is a 82 year old M Presents ED overnight with the son for generalized weakness the past 1 to 2 days. Most of the history obtained from the chart as patient is a poor historian. Along the weakness has had some shaking and falls couple to several times. Per the son he just been off. In the ED he was evaluated found to have a mild fever. Had a mildly diet dehydrated and a mild hyponatremia. He had a leukocytosis. Urinalysis was unremarkable it is felt to have some cellulitis of the back with some pressure injuries ulcers in the buttocks area. Patient started on antibiotics. Blood cultures were obtained. 03/25 No overnight event or new complaints. Leukocytosis improving. Hyponatremia. CRP elevated. Procalcitonin low. 03/26 Patient states he is feeling better today other than a mild headache. No leukocytosis anymore. Sodium improved. Afebrile. To work with physical therapy. Review of Systems: denies /fever/chills/nausea/vomiting/chest or abdominal pain/cough/dyspnea/diarrhea. Otherwise see above. Constitutional Vitals: Vital Signs Temp Pulse Resp BP Pulse Ox O2 Del Method 96.8 F L 68 20 147/82 95 03/26/22 07:22 03/26/22 07:22 03/26/22 07:22 03/26/22 07:22 03/26/22 07:22 03/26/22 07:22 Period Temp Pulse Resp BP Sys/Norris Pulse Ox O2 Del Method O2 Flow Rate Last 24 Hr 96.8 F-99.1 F 65-76 16-20 119-178/71-88 93-95 Room Air-Room Air Intake and Output 03/25/22 03/26/22 03/26/22 21:59 05:59 13:59 Intake Total 325 300 Balance 325 300 Weight 97.154 kg Intake & Output: Intake & Output 03/25/22 03/26/22 03/26/22 21:59 05:59 13:59 Intake Total 325 300 Balance 325 300 Weight 97.154 kg Intake: Oral 325 300 Other: Meal pudding Percent of Meal Consumed 50% Feeding Ability Total Assistance Urine Appearance Clear Urine Color Yellow # Voids 1 1 1 Exam: General: Alert, Awake, No acute Distress, obese Eyes/N/T: EOMI, Head/Neck: neck supple, CV: RRR, No murmurs, Pulm: Clear b/l, no wheezing/rhonchi/rales Abd: soft, nontender, +BS x4 Back: mild erythema of lower back with some pressure injuries ulcers in the bu ttocks area, erythema improving Ext: no clubbing/cyanosis/edema Neuro: Alert, no focal deficits, moves all extremities, , tremorsbaseline Skin: warm/dry OBJ DATA Labs CBC & Chem 7: 03/26/22 05:58 03/26/22 05:58 Labs: Abnormal Lab Results 03/26/22 03/25/22 03/25/22 05:58 06:33 06:33 WBC RBC 3.91 L 3.66 L Hgb 13.0 L 12.3 L Hct 36.9 L 34.6 L POC Hct Plt Count 129 L Immature Gran % (Auto) 1.3 H 0.6 H Neut % (Auto) Lymph % (Auto) 12.9 L Lymph # (Auto) 1.12 L [place] # (Auto) Immature Gran # 0.09 H Absolute Neutrophils POC VBG pH POC VBG pCO2 at Temp POC VBG pO2 POC Venous O2 Sat POC VBG Base Excess POC Sodium Sodium 132 L POC BUN POC Glucose Calcium 8.3 L POC WB Ioniz Calcium Total Bilirubin Direct Bilirubin 0.3 H C-Reactive Protein Total Protein 5.3 L Albumin 3.1 L Procalcitonin Urine Glucose (UA) Urine Ketones Urine Urobilinogen 03/24/22 03/24/22 03/24/22 09:07 09:07 09:07 WBC RBC Hgb Hct POC Hct Plt Count Immature Gran % (Auto) Neut % (Auto) Lymph % (Auto) Lymph # (Auto) [place] # (Auto) Immature Gran # Absolute Neutrophils POC VBG pH POC VBG pCO2 at Temp POC VBG pO2 POC Venous O2 Sat POC VBG Base Excess POC Sodium Sodium 131 L POC BUN POC Glucose Calcium 8.3 L POC WB Ioniz Calcium Total Bilirubin 1.7 H Direct Bilirubin C-Reactive Protein 15.50 H Total Protein Albumin Procalcitonin 0.15 H Urine Glucose (UA) Urine Ketones Urine Urobilinogen 03/24/22 03/23/22 03/23/22 09:07 21:52 20:55 WBC 11.6 H 13.7 H RBC 3.75 L 4.06 L Hgb 12.5 L 13.5 L Hct 35.4 L 37.9 L POC Hct Plt Count 122 L 138 L Immature Gran % (Auto) 0.6 H Neut % (Auto) 80.7 H 87.1 H Lymph % (Auto) 9.5 L 5.6 L Lymph # (Auto) 1.10 L 0.77 L [place] # (Auto) 0.92 H Immature Gran # 0.08 H Absolute Neutrophils 9.33 H 11.89 H POC VBG pH POC VBG pCO2 at Temp POC VBG pO2 POC Venous O2 Sat POC VBG Base Excess POC Sodium Sodium POC BUN POC Glucose Calcium POC WB Ioniz Calcium Total Bilirubin Direct Bilirubin C-Reactive Protein Total Protein Albumin Procalcitonin Urine Glucose (UA) 50 A Urine Ketones 20 A Urine Urobilinogen 2.0 A 03/23/22 03/23/22 20:35 20:35 WBC RBC Hgb Hct POC Hct 38.0 L Plt Count Immature Gran % (Auto) Neut % (Auto) Lymph % (Auto) Lymph # (Auto) [place] # (Auto) Immature Gran # Absolute Neutrophils POC VBG pH 7.53 H POC VBG pCO2 at Temp 30.6 L POC VBG pO2 120 H POC Venous O2 Sat 99.0 H POC VBG Base Excess 3.0 H POC Sodium 130 L Sodium POC BUN 30 H POC Glucose 144 H Calcium POC WB Ioniz Calcium 1.08 L Total Bilirubin Direct Bilirubin C-Reactive Protein Total Protein Albumin Procalcitonin Urine Glucose (UA) Urine Ketones Urine Urobilinogen Meds: Medications Hydrocodone Bitart/Acetaminophen (Hydrocodone/Apap 5/325mg Tablet) 1 tab PO Q6HP [facility]; Protocol Last Admin: 03/25/22 20:39 Dose: 1 tab Albuterol/Ipratropium (Ipratropium/Albuterol 3 Ml Ampul.Neb) 3 ml NEB Q4HP PRN PRN Reason: Shortness Of Breath Amlodipine Besylate (Amlodipine 5 Mg Tablet) 2.5 mg PO QDAY [facility] Last Admin: 03/25/22 08:52 Dose: 2.5 mg Aspirin (Aspirin 81 Mg Tab.Chew) 81 mg CHEWED DAILY [facility] Last Admin: 03/25/22 08:52 Dose: 81 mg Clonidine HCl (Clonidine Hcl 0.1 Mg Tablet) 0.1 mg PO Q8HP PRN PRN Reason: hypertensive emergency Docusate Sodium (Docusate Sodium 100 Mg Capsule) 100 mg PO DAILY [facility] Last Admin: 03/25/22 08:52 Dose: 100 mg Docusate Sodium (Docusate Sodium 100 Mg Capsule) 100 mg PO BID [facility] Last Admin: 03/25/22 20:39 Dose: 100 mg Enoxaparin Sodium (Enoxaparin 40 Mg/0.4 Ml Syringe) 40 mg SQ DAILY [facility] Last Admin: 03/25/22 08:53 Dose: 40 mg Potassium Chloride 40 meq/ (Dextrose) 520 mls @ 130 mls/hr IV UD PRN PRN Reason: Potassium < 3 Magnesium Sulfate (Magnesium Sulfate) 2 gm in 50 mls @ 50 mls/hr IV UD PRN PRN Reason: Magnesium </= 1.6 Ceftriaxone Sodium 2 gm/ (Dextrose) 50 mls @ 100 mls/hr IV Q24H [facility]; Protocol Last Infusion: 03/25/22 09:40 Dose: Infused Levothyroxine Sodium (Levothyroxine 50 Mcg Tablet) 50 mcg PO QDAY [facility] Last Admin: 03/25/22 08:53 Dose: 50 mcg Metoprolol Tartrate (Metoprolol Tartrate 50 Mg Tablet) 100 mg PO BID [facility] Last Admin: 03/25/22 20:38 Dose: 100 mg Morphine Sulfate (Morphine 4 Mg/Ml Vial) 0 mg IV Q3HP PRN PRN Reason: Pain Ondansetron HCl (Ondansetron 4 Mg/2 Ml Vial) 4 mg IV Q4HP PRN PRN Reason: Nausea And Vomiting Carbidopa-Levodopa [ (Rytary] 36.25-145 Mg) 4 dose PO TID [facility] Last Admin: 03/25/22 20:48 Dose: 4 dose (Miconazole Nitrate [Remedy Antifungal] 2 % Powder 1 dose TOPICAL BID [facility] Last Admin: 03/25/22 21:04 Dose: Not Given Polyethylene Glycol (Polyethylene Glycol 3350 17 Gm Packet) 17 gm PO DAILYP PRN PRN Reason: Constipation Potassium Chloride (Potassium Chloride 20 Meq Tablet) 40 meq PO UD PRN PRN Reason: Potssium is 3-3.5 Potassium Chloride (Potassium Chloride 20 Meq Tablet) 40 meq PO UD PRN PRN Reason: Potassium < 3 Senna (Sennosides 1 Tablet) 2 tab PO DAILYP PRN PRN Reason: Constipation Sodium Chloride (0.9 % Sodium Chloride 10 Ml Syringe) 10 ml IV Q8 [facility] Last Admin: 03/26/22 05:50 Dose: 10 ml Tamsulosin HCl (Tamsulosin 0.4 Mg Capsule) 0.4 mg PO BID [facility] Last Admin: 03/25/22 20:39 Dose: 0.4 mg Venlafaxine HCl (Venlafaxine 75 Mg Tablet) 75 mg PO BID [facility] Last Admin: 03/25/22 20:39 Dose: 75 mg A/P Narrative A/P Narrative: A: *Cellulitis of the lower back/buttock with pressure injury to buttock: *Sepsis: resolved -Leukocytosis resolved, afebrile o/n *Volume depletion: improved *Generalized weakness/deconditioning: *Atelectasis: *Hyponatremia: improved *Parkinson's dz: *CAD w/stent: *HTN: *Hypothyroidism: *DJD: *Obesity: BMI 30 *Incidental fibnding on CT: case discussed with Dr. Grossman who said nothing urgent and to f/u in his office -per CT "Discontinuity of the infrarenal abdominal aortic calcification. Penetrating ulcer is possible. There is no evidence for leaking aneurysm or ac port lions abnormality" P: -empiric ABx, pending BC -Wound care -IS -cont norvasc/BB, restarted lisinopril -cont ASA -cont sinement -PT/OT -CM for placement needs -f/u with Dr. Grossman -ppx: Lovenox Time Spent With Patient Time: Total time spent is greater than 50% in coordination of care (as documented) at patient's floor/unit and/or counseling patient: Total time spent with greater than 50% in coordination of care (as documented) at patient's floor/unit and/or counseling patient:: 25 - 35 minutes QUALITY Stroke Symptom Onset Unknown: No VTE Deep Vein Thrombosis/Pulmonary Embolism Present on Admission: No
[2022-03-26] MEDS: TAMSULOSIN 0.4 MG CAPSULE PO SCH ×2 (08:18→21:27)
[2022-03-26] MEDS: LEVOTHYROXINE 50 MCG TABLET PO SCH (08:18)
[2022-03-26] MEDS: METOPROLOL TARTRATE 50 MG TABLET PO SCH ×2 (08:18→21:27)
[2022-03-26] MEDS: VENLAFAXINE 75 MG TABLET PO SCH ×2 (08:19→21:27)
[2022-03-26] MEDS: amLODIPine 5 MG TABLET PO SCH (08:19)
[2022-03-26] MEDS: ENOXAPARIN 40 MG/0.4 ML SYRINGE SQ SCH (08:19)
[2022-03-26] MEDS: ASPIRIN 81 MG TAB.CHEW CHEWED SCH (08:19)
[2022-03-26] MEDS: DOCUSATE SODIUM 100 MG CAPSULE PO SCH ×3 (08:19→21:26)
[2022-03-26] MEDS: LISINOPRIL 20 MG TABLET PO SCH ×2 (08:19→21:26)
[2022-03-26] MEDS: MICONAZOLE NITRATE 2% TOPICAL SCH ×2 (08:20→21:27)
[2022-03-26] MEDS: CARBIDOPA LEVODOPA PO SCH ×3 (08:20→21:25)
[2022-03-26] MEDS: cefTRIAXone 2 GM in DEXTROSE 5% IN WATER 50 ML IV SCH (08:20)
--- NOTE | 2022-03-26 12:53 | Discharge Summary ---
Discharge Provider Provider IMPORTANT FOLLOW-UP INFORMATION FOR PCP: Patient information: Note initiated : 03/26/22 at 12:51 pm Service Date, if different from initiated Date: [] Patient: Kris Graham 82 y/o M admitted on 03/24/22 for decreased level of conciousness, Ground level fall. Chief Complaint: [] Date of admission: 03/24/22 14:08 Discharge date: 03/27/22 Primary care physician: Marcus Dawson MD Consults: 03/24/22 Consult to Physician [CONS] Stat Comment: Consulting Provider: Brady English Reason For Exam: Physician to Consult COURSE Hospital Course Hospital course: History of present illness: Mr. Graham is a 82 year old M Presents ED overnight with the son for generalized weakness the past 1 to 2 days. Most of the history obtained from the chart as patient is a poor historian. Along the weakness has had some shaking and falls couple to several times. Per the son he just been off. In the ED he was evaluated found to have a mild fever. Had a mildly diet dehydrated and a mild hyponatremia. He had a leukocytosis. Urinalysis was unremarkable it is felt to have some cellulitis of the back with some pressure injuries ulcers in the buttocks area. Patient started on antibiotics. Blood cultures were obtained. 03/25 No overnight event or new complaints. Leukocytosis improving. Hyponatremia. CRP elevated. Procalcitonin low. 03/26 Patient states he is feeling better today other than a mild headache. No leukocytosis anymore. Sodium improved. Afebrile. To work with physical therapy. A: *Cellulitis of the lower back/buttock with pressure injury to buttock: *Sepsis: resolved -Leukocytosis resolved, afebrile o/n *Volume depletion: improved *Generalized weakness/deconditioning: *Atelectasis: *Hyponatremia: improved *Parkinson's dz: *CAD w/stent: *HTN: *Hypothyroidism: *DJD: *Obesity: BMI 30 *Incidental fibnding on CT: case discussed with Dr. Grossman who said nothing urgent and to f/u in his office -per CT "Discontinuity of the infrarenal abdominal aortic calcification. Penetrating ulcer is possible. There is no evidence for leaking aneurysm or acute abnormality" P: -ABx -referral to see Dr. Grossman Discharge diagnosis: Cellulitis sepsis following depletion generalized weakness deconditioning a Secondary discharge diagnosis: Atelectasis hyponatremia Parkinson's CAD hypertension hypothyroidism DJD obesity incidental finding of abnormal infrarenal abdominal aortic calcification Time Spent with Patient Time attestation: Total time spent providing and/or coordinating discharge services: Time spent: Greater than 30 minutes EXAM Constitutional Vitals: Temp Pulse Resp BP Pulse Ox O2 Del Method 97.1 F 71 18 143/80 97 03/26/22 11:34 03/26/22 11:34 03/26/22 11:34 03/26/22 11:34 03/26/22 11:34 03/26/22 11:34 Discharge Data Data Completed and Pending Labs on day of discharge: Labs from last 24 hours 03/26/22 03/26/22 05:58 05:58 WBC 7.2 RBC 3.91 L Hgb 13.0 L Hct 36.9 L MCV 94.4 MCH 33.2 MCHC 35.2 RDW 12.0 Plt Count 153 MPV 8.8 Immature Gran % (Auto) 1.3 H Neut % (Auto) 62.6 Lymph % (Auto) 21.9 [place] % (Auto) 8.8 Eos % (Auto) 4.7 Baso % (Auto) 0.7 Lymph # (Auto) 1.57 [place] # (Auto) 0.63 Eos # (Auto) 0.34 Baso # (Auto) 0.05 Immature Gran # 0.09 H Absolute Neutrophils 4.48 Sodium 134 Potassium 3.9 Chloride 98 Carbon Dioxide 26 Anion Gap 10.0 BUN 23 Creatinine 0.9 GFR Calculation 79 Glucose 94 Calcium 8.7 Preliminary micro results at discharge 03/23/22 21:24 Blood Culture - Preliminary Blood 03/23/22 21:21 Blood Culture - Preliminary Blood Discharge Plan Patient/Caregiver Discharge Instructions Activity: increase activity as tolerated Diet: Cardiac Prescriptions: New cephalexin 500 mg capsule 500 mg PO QID Qty: 12 0RF Continued tamsulosin 0.4 mg capsule 0.4 mg PO BID 90 Days Qty: 180 3RF clonidine HCl 0.1 mg tablet 0.1 mg PO Q8H PRN (Reason: hypertensive emergency) Qty: 90 0RF Rx Instructions: As needed for BP > 160/100 levothyroxine 50 mcg tablet 50 mcg PO QDAY 90 Days Qty: 90 3RF lisinopril 20 mg tablet 20 mg PO BID 90 Days Qty: 180 3RF meloxicam 15 mg tablet 15 mg PO QDAY 90 Days Qty: 90 3RF venlafaxine 75 mg tablet 75 mg PO BID 90 Days Qty: 180 1RF metoprolol tartrate 100 mg tablet 100 mg PO BID 90 Days Qty: 180 3RF amlodipine 2.5 mg tablet 2.5 mg PO QDAY Qty: 90 1RF hydrocodone-acetaminophen 5-325 mg tablet 1 tab PO TID PRN (Reason: pain) Qty: 90 0RF nystatin 100,000 unit/gram powder 1 applic topical BID Qty: 60 1RF docusate sodium 100 mg capsule 100 mg PO QDAY 90 Days Qty: 90 1RF omega-3 fatty acids 1,000 mg capsule 1,000 mg PO QDAY multivitamin [Multiple Vitamins] Tablet 1 tab PO QAM aspirin 81 mg tablet,delayed release (DR/EC) 81 mg PO QDAY coenzyme Q10 100 mg capsule 100 mg PO QDAY cholecalciferol (vitamin D3) 125 mcg (5,000 unit) capsule 125 mcg PO QDAY Rytary 36.25-145 mg capsule, extended release 4 cap PO TID guaifenesin 600 mg tablet extended release 12hr 600 mg PO Q12H Remedy Antifungal 2 % powder See Rx Instructions topical .COMPLEX Rx Instructions: topical; acetaminophen 325 mg tablet 650 mg PO Q4H PRN (Reason: [place], Mild-Mod Joint Pain, Fever>99.9) polyethylene glycol 3350 [ClearLax] 17 gram/dose powder 17 g PO QDAY PRN (Reason: constipation) magnesium hydroxide [Milk of Magnesia] 400 mg/5 mL suspension 30 ml PO QDAY PRN (Reason: constipation) Follow Up Plan Follow up with: Mickey Grossman MD [Physician] - (Abdominal aorta findings on CT ) Marcus Dawson MD [Primary Care Provider] - Patient Disposition: Home Health Service Prognosis: Fair Rehab Potential: Fair Overall status at discharge: patient is progressing back to baseline Discharge Orders: Discharge Order (Routine); Ordered 03/27/22 [facility] Th[facility]osis/Pulmonary Embolism Present on Admission: No
[2022-03-26] MEDS: HYDROcodone/APAP 5/325MG TABLET PO SCH (15:30)
[2022-03-27] MEDS: 0.9 % SODIUM CHLORIDE 10 ML SYRINGE IV SCH ×2 (05:57→16:49)
[2022-03-27] MEDS: HYDROcodone/APAP 5/325MG TABLET PO SCH (05:58)
[2022-03-27] MEDS: TAMSULOSIN 0.4 MG CAPSULE PO SCH (08:34)
[2022-03-27] MEDS: METOPROLOL TARTRATE 50 MG TABLET PO SCH (08:34)
[2022-03-27] MEDS: ENOXAPARIN 40 MG/0.4 ML SYRINGE SQ SCH (08:35)
[2022-03-27] MEDS: amLODIPine 5 MG TABLET PO SCH (08:35)
[2022-03-27] MEDS: VENLAFAXINE 75 MG TABLET PO SCH (08:35)
[2022-03-27] MEDS: DOCUSATE SODIUM 100 MG CAPSULE PO SCH ×2 (08:35→08:36)
[2022-03-27] MEDS: LEVOTHYROXINE 50 MCG TABLET PO SCH (08:35)
[2022-03-27] MEDS: ASPIRIN 81 MG TAB.CHEW CHEWED SCH (08:35)
[2022-03-27] MEDS: cefTRIAXone 2 GM in DEXTROSE 5% IN WATER 50 ML IV SCH (08:36)
[2022-03-27] MEDS: CARBIDOPA LEVODOPA PO SCH ×2 (08:36→16:49)
[2022-03-27] MEDS: LISINOPRIL 20 MG TABLET PO SCH (08:36)
[2022-03-27] MEDS: MICONAZOLE NITRATE 2% TOPICAL SCH (10:47)
--- NOTE | 2022-03-27 10:47 | Internal Med Progress Note ---
SUBJECTIVE Subjective Patient information: Note initiated : 03/27/22 at 10:46 am Service Date, if different from initiated Date: [] Patient: Kris Graham a 82 y/o M admitted on 03/24/22 for decreased level of conciousness, Ground level fall. Chief Complaint: [] Interval history: History of present illness: Mr. Graham is a 82 year old M Presents ED overnight with the son for generalized weakness the past 1 to 2 days. Most of the history obtained from the chart as patient is a poor historian. Along the weakness has had some shaking and falls couple to several times. Per the son he just been off. In the ED he was evaluated found to have a mild fever. Had a mildly diet dehydrated and a mild hyponatremia. He had a leukocytosis. Urinalysis was unremarkable it is felt to have some cellulitis of the back with some pressure injuries ulcers in the buttocks area. Patient started on antibiotics. Blood cultures were obtained. 03/25 No overnight event or new complaints. Leukocytosis improving. Hyponatremia. CRP elevated. Procalcitonin low. 03/26 Patient states he is feeling better today other than a mild headache. No leukocytosis anymore. Sodium improved. Afebrile. To work with physical therapy. 03/27 No overnight event or new complaints. However his blood pressures been running bit high. We will adjust medications as needed. Patient likely needs at least assisted living facility as opposed to going back to the independent side [facility]. Review of Systems: denies /fever/chills/nausea/vomiting/chest or abdominal pa in/cough/dyspnea/diarrhea. Otherwise see above. Constitutional Vitals: Vital Signs Temp Pulse Resp BP Pulse Ox O2 Del Method 97.5 F 70 16 181/95 92 03/27/22 07:57 03/27/22 07:57 03/27/22 07:57 03/27/22 07:57 03/27/22 07:57 03/27/22 07:57 Period Temp Pulse Resp BP Sys/Norris Pulse Ox O2 Del Method O2 Flow Rate Last 24 Hr 97 F-98.5 F 65-80 16-24 143-182/71-95 92-97 Room Air-Room Air Intake and Output 03/26/22 03/27/22 03/27/22 21:59 05:59 13:59 Intake Total 480 300 Output Total 1 Balance 480 300 -1 Weight 96.332 kg Intake & Output: Intake & Output 03/26/22 03/27/22 03/27/22 21:59 05:59 13:59 Intake Total 480 300 Output Total 1 Balance 480 300 -1 Weight 96.332 kg Intake: Oral 480 300 Output: # of times incontinent of urine 1 Other: Meal Dinner pudding Percent of Meal Consumed 100% 100% Feeding Ability Independent Total Assistance Urine Appearance Clear Clear Clear Urine Color Yellow Bright Yellow Yellow Urine Odor Normal Stool Size Large Stool Color Brown Stool Consistency Formed # Voids 1 1 2 # Bowel Movements 1 Exam: General: Alert, Awake, No acute Distress, obese Eyes/N/T: EOMI, Head/Neck: neck supple, CV: RRR, No murmurs, Pulm: Clear b/l, no wheezing/rhonchi/rales Abd: soft, nontender, +BS x4 Back: mild erythema of lower back with some pressure injuries ulcers in the buttocks area, erythema much better Ext: no clubbing/cyanosis/edema Neuro: Alert, no focal deficits, moves all extremities, , tremorsbaseline Skin: warm/dry OBJ DATA Labs CBC & Chem 7: 03/26/22 05:58 03/26/22 05:58 Labs: Abnormal Lab Results 03/26/22 03/25/22 03/25/22 05:58 06:33 06:33 RBC 3.91 L 3.66 L Hgb 13.0 L 12.3 L Hct 36.9 L 34.6 L Plt Count 129 L Immature Gran % (Auto) 1.3 H 0.6 H Lymph % (Auto) 12.9 L Lymph # (Auto) 1.12 L Immature Gran # 0.09 H Sodium 132 L Calcium 8.3 L Direct Bilirubin 0.3 H C-Reactive Protein Total Protein 5.3 L Albumin 3.1 L Procalcitonin 03/24/22 03/24/22 09:07 09:07 RBC Hgb Hct Plt Count Immature Gran % (Auto) Lymph % (Auto) Lymph # (Auto) Immature Gran # Sodium Calcium Direct Bilirubin C-Reactive Protein 15.50 H Total Protein Albumin Procalcitonin 0.15 H Meds: Medications Hydrocodone Bitart/Acetaminophen (Hydrocodone/Apap 5/325mg Tablet) 1 tab PO Q6HP ASIA; Protocol Last Admin: 03/27/22 05:58 Dose: 1 tab Albuterol/Ipratropium (Ipratropium/Albuterol 3 Ml Ampul.Neb) 3 ml NEB Q4HP PRN PRN Reason: Shortness Of Breath Amlodipine Besylate (Amlodipine 5 Mg Tablet) 2.5 mg PO QDAY [facility] Last Admin: 03/27/22 08:35 Dose: 2.5 mg Aspirin (Aspirin 81 Mg Tab.Chew) 81 mg CHEWED DAILY [facility] Last Admin: 03/27/22 08:35 Dose: 81 mg Clonidine HCl (Clonidine Hcl 0.1 Mg Tablet) 0.1 mg PO Q8HP PRN PRN Reason: hypertensive emergency Docusate Sodium (Docusate Sodium 100 Mg Capsule) 100 mg PO DAILY [facility] Last Admin: 03/27/22 08:35 Dose: 100 mg Docusate Sodium (Docusate Sodium 100 Mg Capsule) 100 mg PO BID [facility] Last Admin: 03/27/22 08:36 Dose: 100 mg Enoxaparin Sodium (Enoxaparin 40 Mg/0.4 Ml Syringe) 40 mg SQ DAILY [facility] Last Admin: 03/27/22 08:35 Dose: 40 mg Potassium Chloride 40 meq/ (Dextrose) 520 mls @ 130 mls/hr IV UD PRN PRN Reason: Potassium < 3 Magnesium Sulfate (Magnesium Sulfate) 2 gm in 50 mls @ 50 mls/hr IV UD PRN PRN Reason: Magnesium </= 1.6 Ceftriaxone Sodium 2 gm/ (Dextrose) 50 mls @ 100 mls/hr IV Q24H [facility]; Protocol Last Admin: 03/27/22 08:36 Dose: 100 mls/hr Levothyroxine Sodium (Levothyroxine 50 Mcg Tablet) 50 mcg PO QDAY [facility] Last Admin: 03/27/22 08:35 Dose: 50 mcg Lisinopril (Lisinopril 20 Mg Tablet) 20 mg PO BID [facility] Last Admin: 03/27/22 08:36 Dose: 20 mg Metoprolol Tartrate (Metoprolol Tartrate 50 Mg Tablet) 100 mg PO BID [facility] Last Admin: 03/27/22 08:34 Dose: 100 mg Morphine Sulfate (Morphine 4 Mg/Ml Vial) 0 mg IV Q3HP PRN PRN Reason: Pain Ondansetron HCl (Ondansetron 4 Mg/2 Ml Vial) 4 mg IV Q4HP PRN PRN Reason: Nausea And Vomiting Carbidopa-Levodopa [ (Rytary] 36.25-145 Mg) 4 dose PO TID [facility] Last Admin: 03/27/22 08:36 Dose: 4 dose (Miconazole Nitrate [Remedy Antifungal] 2 % Powder 1 dose TOPICAL BID [facility] Last Admin: 03/26/22 21:27 Dose: Not Given Polyethylene Glycol (Polyethylene Glycol 3350 17 Gm Packet) 17 gm PO DAILYP PRN PRN Reason: Constipation Potassium Chloride (Potassium Chloride 20 Meq Tablet) 40 meq PO UD PRN PRN Reason: Potssium is 3-3.5 Potassium Chloride (Potassium Chloride 20 Meq Tablet) 40 meq PO UD PRN PRN Reason: Potassium < 3 Senna (Sennosides 1 Tablet) 2 tab PO DAILYP PRN PRN Reason: Constipation Sodium Chloride (0.9 % Sodium Chloride 10 Ml Syringe) 10 ml IV Q8 [facility] Last Admin: 03/27/22 05:57 Dose: 10 ml Tamsulosin HCl (Tamsulosin 0.4 Mg Capsule) 0.4 mg PO BID [facility] Last Admin: 03/27/22 08:34 Dose: 0.4 mg Venlafaxine HCl (Venlafaxine 75 Mg Tablet) 75 mg PO BID [facility] Last Admin: 03/27/22 08:35 Dose: 75 mg A/P Narrative A/P Narrative: A: *Cellulitis of the lower back/buttock with pressure injury to buttock: improving *Sepsis: resolved -Leukocytosis resolved, afebrile o/n *Volume depletion: improved *Generalized weakness/deconditioning: *Atelectasis: *Hyponatremia: improved *Parkinson's dz: *CAD w/stent: *HTN: *Hypothyroidism: *DJD: *Obesity: BMI 30 *Incidental fibnding on CT: case discussed with Dr. Grossman who said nothing urgent and to f/u in his office -per CT "Discontinuity of the infrarenal abdominal aortic calcification. Penetrating ulcer is possible. There is no evidence for leaking aneurysm or acute abnormality" P: -ABx -Wound care -IS -cont norvasc(increase)/BB/lisinopril -cont ASA -cont sinement -PT/OT -CM for placement needs -f/u with Dr. Grossman -ppx: Lovenox Time Spent With Patient Time: Total time spent is greater than 50% in coordination of care (as documented) at patient's floor/unit and/or counseling patient: QUALITY Stroke Symptom Onset Unknown: No VTE Deep Vein Thrombosis/Pulmonary Embolism Present on Admission: No
[2022-03-27] MEDS ORDERED: amLODIPine 5 MG TABLET PO ONE (10:50)
[2022-03-27] MEDS ORDERED: amLODIPine 5 MG TABLET PO SCH (10:51)
[2022-03-27] MEDS ORDERED: cloNIDine HCL 0.1 MG TABLET PO PRN (10:51)
== END 2022-03-27 14:45 | disposition home health service (06) | DRG 602 ==
LOC: ED 20:04 → MEDSUR 03-24 14:08
PROVIDERS: ADMIT Internal Medicine; ATTEND Internal Medicine

== ENCOUNTER 2022-04-03 18:28 | Inpatient (IN) ==
[2022-04-03] MEDS ORDERED: 0.9 % SODIUM CHLORIDE 2,330 ML IV ONE (18:40)
[2022-04-03] MEDS ORDERED: ACETAMINOPHEN 325 MG TABLET PO ONE (19:01)
--- NOTE | 2022-04-03 19:01 | Emergency Department Note ---
Altered Mental Status HPI General Chief Complaint: Altered Mental Status Stated Complaint: fever, cellulitis Time Seen by Provider: 04/03/22 18:37 Source: patient and EMS Mode of arrival: EMS History of Present Illness HPI Narrative: Narrative: 82-year-old male with a history of Parkinson's, sepsis, cellulitis of the back, chronic radicular pain, BPH, hypothyroid, hyperlipidemia, hypertension, CAD with heart attack, muscle pain, arthritis and anxiety presents the ER to be evaluated for altered mental status, fever, tachycardia and tachypnea. He resides at [facility]. He recently had an inpatient stay for cellulitis of his back and his sacral ulcer. He received antibiotics and patient was discharged on Keflex. His wounds been closing and he has been seeing the wound healing clinic and improving however, the last few days he has been declining and today he was altered and they noticed his temperature was 100.1. Patient will answer questions but does not provide a significant history. His son who is the director of [facility] presents today. Patient also complains of a headache. He will be given Tylenol at this time. Related Data Home Medications Medication Instructions Recorded Confirmed multivitamin (Multiple Vitamins 1 tab PO QAM 04/08/20 03/24/22 tablet) omega-3 fatty acids 1,000 mg 1,000 mg PO QDAY 04/08/20 03/24/22 capsule aspirin 81 mg tablet,delayed 81 mg PO QDAY 09/06/20 03/24/22 release cholecalciferol (vitamin D3) 125 125 mcg PO QDAY 09/06/20 03/24/22 mcg (5,000 unit) capsule coenzyme Q10 100 mg capsule 100 mg PO QDAY 09/06/20 03/24/22 acetaminophen 325 mg tablet 650 mg PO Q4H PRN KENDALL, Mild-Mod 09/21/20 03/24/22 Joint Pain, Fever>99.9 magnesium hydroxide 400 mg/5 mL 30 ml PO QDAY PRN constipation 09/21/20 03/24/22 oral suspension (Milk of Magnesia) polyethylene glycol 3350 17 17 g PO QDAY PRN constipation 09/21/20 03/24/22 gram/dose oral powder (ClearLax) carbidopa ER 36.25 mg-levodopa 145 4 cap PO TID 09/08/21 03/24/22 mg capsule,extended release (Rytary) guaifenesin 600 mg tablet, 600 mg PO Q12H 09/08/21 03/24/22 extended release 12 hr miconazole nitrate 2 % topical See Rx Instructions topical 09/08/21 03/24/22 powder (Remedy Antifungal) .COMPLEX Previous Rx's Medication Instructions Recorded docusate sodium 100 mg capsule 100 mg PO QDAY 90 days #90 caps 04/13/20 clonidine HCl 0.1 mg tablet 0.1 mg PO Q8H PRN hypertensive 04/27/21 emergency #90 tabs levothyroxine 50 mcg tablet 50 mcg PO QDAY 90 days #90 tabs 10/10/21 lisinopril 20 mg tablet 20 mg PO BID 90 days #180 tabs 10/10/21 meloxicam 15 mg tablet 15 mg PO QDAY 90 days #90 tabs 10/10/21 venlafaxine 75 mg tablet 75 mg PO BID 90 days #180 tabs 11/08/21 metoprolol tartrate 100 mg tablet 100 mg PO BID 90 days #180 tabs 11/10/21 amlodipine 2.5 mg tablet 2.5 mg PO QDAY #90 tabs 12/13/21 nystatin 100,000 unit/gram topical 1 applic topical BID #60 grams 03/07/22 powder cephalexin 500 mg capsule 500 mg PO QID #12 caps 03/26/22 hydrocodone 5 mg-acetaminophen 325 1 tab PO TID PRN pain #90 tabs 03/29/22 mg tablet tamsulosin 0.4 mg capsule 0.4 mg PO BID 90 days #180 caps 03/29/22 Allergies Allergy/AdvReac Type Severity Reaction Status Date / Time No Known Drug Allergies Allergy Verified 03/23/22 20:12 Review of Systems ROS ROS Narrative: Narrative: All systems ED: reviewed and negative except as stated. PFSH Narrative Patient History Narrative: Narrative: Medical/Surgical/Family History All Active Problems Cellulitis of back (Acute) Sepsis (Acute) Generalized weakness (Acute) Falls frequently (Acute) Head injury (Acute) Fall (Acute) Abrasion of forehead (Acute) Fall (Acute) Rib pain on left side (Acute) Medicare annual wellness visit, initial (Acute) Chronic pain (Chronic) Lumbar radiculopathy (Chronic) Lumbar stenosis with neurogenic claudication (Chronic) Lower back pain (Chronic) Constipation (Chronic) BPH (benign prostatic hyperplasia) (Chronic) Hypothyroid (Chronic) Thyroid gland disease (Chronic) Joint pain (Chronic) High cholesterol (Chronic) High blood pressure (Chronic) Parkinsons disease (Chronic ~2013) History of heart artery stent (Chronic ~2008) Heart attack (Chronic ~2008) Daytime sleepiness (Chronic) Muscle pain (Chronic ~2013) Arthritis (Chronic) Anxiety (Chronic) Medical History Anxiety Arthritis BPH (benign prostatic hyperplasia) Chronic pain Constipation Daytime sleepiness Heart attack (~2008) High blood pressure High cholesterol Hypothyroid Joint pain Lower back pain Lumbar radiculopathy Lumbar stenosis with neurogenic claudication Medicare annual wellness visit, initial Muscle pain (~2012) Parkinsons disease (~2012) Thyroid gland disease Surgical History History of heart artery stent (~2008) Family History Aunt Dementia Mother Arthritis, rheumatoid Parkinson disease Father Polycystic kidney disease Hypertension Sister Parkinson disease Social History Smoking Status: Never smoker Alcohol Intake Frequency: a few times a week Substance Use: does not use Exam Narrative Narrative: Narrative: Gen: Patient is warm and shaking from his Parkinson's but can answer questions. Eyes: PERRL, no conjunctival injection , and symmetrical lids. Sclerae non icteric HENMT: Normocephalic Atraumatic head, external nose and ears. Moist MM. CVS: +S1/S2, No murmurs or gallops. Radial pulses 2+ and equal bilat. No swelling RESP: Unlabored respiratory effort . Clear to auscultation bilaterally (CTAB). No noted wheezes rales or ronchi. GI: Nontender/Nondistended (NTND), No focal tenderness MSK: Extremities w/o deformity or ttp. No cyanosis or clubbing. Back: Cellulitis on the back is healed there is no evidence of infection here Buttocks: Pressure ulcers bilaterally at the superior intergluteal cleft, left buttock has what appears to be a fluctuant abscess that is recently drained. Right buttock is irritated but looks closed without any fluctuance or purulence. Skin: Warm, Dry . Cap refill less than 2. Neuro: No focal neurological deficit Psych: Patient answers questions appropriately. Appropriate mood and affect . Course Vital Signs Vital signs: Vital Signs Temperature 100.1 F H 04/03/22 18:31 Pulse Rate 101 H 04/03/22 18:31 Respiratory Rate 24 H 04/03/22 18:31 Blood Pressure 146/94 04/03/22 18:31 Pulse Oximetry (%) 91 04/03/22 18:31 Oxygen Delivery Method 04/03/22 18:31 Temperature 100.1 F H 04/03/22 18:31 Pulse Rate 101 H 04/03/22 18:31 Respiratory Rate 24 H 04/03/22 18:31 Blood Pressure 146/94 04/03/22 18:31 Pulse Oximetry (%) 91 04/03/22 18:31 Oxygen Delivery Method 04/03/22 18:31 MDM MDM Narrative Medical decision making narrative: Narrative: Patient is febrile, tachypneic and tachycardic. He has a known known cellulitic infection of his back and sacrum. [facility] but failing this. He is complaining of headache at this time. He was given Tylenol for fever and headache. He will be evaluated for sepsis. Patient will be given 30 mg/kg of fluid. CBC: Chem-8: Unremarkable Hepatic panel: ABG/Lac: Unremarkable lactic normal at 1-06/26 Troponin: EKG: Normal sinus rhythm at a rate of [address] or T wave abnormality suggest acute ischemia. Computer calls atrial flutter with is likely due to artifact from his tremor due to Parkinson's. Chest x-ray: No acute process as read by myself radiology overread pending UA: COVID: Flu: Patient's lactic is normal. He was switched to 1 L bolus instead of 30 mg/kg. It is the end of my shift, patient evaluation, exam and disposition were discussed with Dr. Love. He will assume care for the patient at this time, 1944 all his questions were answered and he is aware of the current disposition evaluation. Discharge Plan Patient/Caregiver Discharge Instructions Pt seen by MAINTENANCE AND OPERATIONS SUPERVISOR/PA only: No Patient Disposition: Still a Patient Follow up with: Marcus Dawson MD [Primary Care Provider] - Prescriptions: No Action clonidine HCl 0.1 mg tablet 0.1 mg PO Q8H PRN (Reason: hypertensive emergency) Qty: 90 0RF Rx Instructions: As needed for BP > 160/100 levothyroxine 50 mcg tablet 50 mcg PO QDAY 90 Days Qty: 90 3RF lisinopril 20 mg tablet 20 mg PO BID 90 Days Qty: 180 3RF meloxicam 15 mg tablet 15 mg PO QDAY 90 Days Qty: 90 3RF venlafaxine 75 mg tablet 75 mg PO BID 90 Days Qty: 180 1RF metoprolol tartrate 100 mg tablet 100 mg PO BID 90 Days Qty: 180 3RF amlodipine 2.5 mg tablet 2.5 mg PO QDAY Qty: 90 1RF nystatin 100,000 unit/gram powder 1 applic topical BID Qty: 60 1RF tamsulosin 0.4 mg capsule 0.4 mg PO BID 90 Days Qty: 180 3RF hydrocodone-acetaminophen 5-325 mg tablet 1 tab PO TID PRN (Reason: pain) Qty: 90 0RF docusate sodium 100 mg capsule 100 mg PO QDAY 90 Days Qty: 90 1RF omega-3 fatty acids 1,000 mg capsule 1,000 mg PO QDAY multivitamin [Multiple Vitamins] Tablet 1 tab PO QAM aspirin 81 mg tablet,delayed release (DR/EC) 81 mg PO QDAY coenzyme Q10 100 mg capsule 100 mg PO QDAY cholecalciferol (vitamin D3) 125 mcg (5,000 unit) capsule 125 mcg PO QDAY Rytary 36.25-145 mg capsule, extended release 4 cap PO TID guaifenesin 600 mg tablet extended release 12hr 600 mg PO Q12H Remedy Antifungal 2 % powder See Rx Instructions topical .COMPLEX Rx Instructions: topical; acetaminophen 325 mg tablet 650 mg PO Q4H PRN (Reason: KENDALL, Mild-Mod Joint Pain, Fever>99.9) polyethylene glycol 3350 [ClearLax] 17 gram/dose powder 17 g PO QDAY PRN (Reason: constipation) magnesium hydroxide [Milk of Magnesia] 400 mg/5 mL suspension 30 ml PO QDAY PRN (Reason: constipation) cephalexin 500 mg capsule 500 mg PO QID Qty: 12 0RF
--- NOTE | 2022-04-03 19:27 | XRay Report ---
INDICATION: AMS TECHNIQUE: AP portable semiupright chest x-ray COMPARISON: Previous chest x-ray dated 03/23/2022 FINDINGS: Lungs:Lungs are negative. No focal pulmonary parenchymal infiltrate or mass Heart, vascular:No significant cardiomegaly. Pulmonary vascularity is normal. No pulmonary edema or pulmonary congestion Mediastinum, elizabeth:No mediastinal widening. No hilar mass Pleura:No pleural fluid. No pleural-based mass or calcification Skeletal:Severe degenerative disease in the right glenohumeral joint. Nonacute left rib fractures with healed deformity IMPRESSION: 1. No acute abnormality 2. No interval change since 03/23/2022 Interpreted and Authenticated by: Mickey Stephens 04/03/22
[2022-04-03 19:29] LABS: POC Calcium, Ionized 1.14 (1.16-1.32); POC Potassium 4.3 (3.3-5.1)
[2022-04-03] MEDS ORDERED: 0.9 % SODIUM CHLORIDE 1,000 ML IV ONE (19:31)
[2022-04-03 19:50] LABS: Basophils # (Auto) 0.07 K/mcL (0.00-0.30); Basophils % (Auto) 0.3 % (0.0-2.0); Eosinophils % (Auto) 0.5 % (0.0-7.0); Hematocrit 39.3 % (40.1-51.0); Hemoglobin 13.6 g/dL (13.7-17.5); Lymphocytes # (Auto) 0.97 K/mcL (1.50-4.80); Lymphocytes % (Auto) 4.4 % (15.5-49.0); Mean Cell Volume 94.5 fL (80.0-100.0); Mean Corpuscular HGB Conc 34.6 g/dL (31.0-36.0); Mean Platelet Volume 8.9 fL (8.8-12.5); Monocytes # (Auto) 1.09 K/mcL (0.10-0.90); Neutrophils % (Auto) 88.2 % (38.0-78.0); Platelet Count 203 K/mcL (140-440); RBC 4.16 M/mcL (4.63-6.08); Red Cell Distribution Width 12.1 % (11.5-14.5); WBC 21.9 K/mcL (4.5-11.0)
[2022-04-03] MEDS ORDERED: cefTRIAXone 2 GM in DEXTROSE 5% IN WATER 50 ML IV ONE (19:52)
[2022-04-03] MEDS ORDERED: VANCOMYCIN 1,000 MG in 0.9 % SODIUM CHLORIDE 250 ML IV ONE (20:00)
[2022-04-03 20:04] LABS: ALT/SGPT < 5 U/L (<40); AST/SGOT 17 U/L (<40); Albumin 3.8 gm/dL (3.2-5.2); Alkaline Phosphatase 126 U/L (39-117); Bilirubin,Direct 0.2 mg/dL (<0.3); Bilirubin,Total 0.8 mg/dL (0.1-1.0); Globulin 3.2 gm/dL (2.2-3.7)
[2022-04-03] MEDS ORDERED: KETOROLAC 30 MG/ML VIAL IV ONE (20:31)
[2022-04-03 21:03] LABS: Appearance,Urine CLEAR (Clear); Bilirubin,Urine Negative (Negative); Color,Urine YELLOW; Culture Indicated,Urine No; Glucose,Urine (UA) Negative (Negative); Ketones,Urine 5 mg/dL (Negative); Leukocyte Esterase,Urine Negative /uL (Negative); Nitrate,Urine Negative (Negative); Protein,Urine Negative (Negative); Urine Blood Negative (Negative); Urobilinogen,Urine Negative
--- NOTE | 2022-04-03 21:46 | Emergency Department Note ---
Course Course Course Narrative: I assumed care of patient at 2100 pending bed availability for admission. Patient diagnosed with buttock cellulitis as he had Pressure ulcers bilaterally at the superior intergluteal cleft, left buttock has what appears to be a fluctuant abscess that is recently drained. Right buttock is irritated but looks closed without any fluctuance or purulence. Patient was given IV vanc omycin and Rocephin after blood cultures were obtained. He was bolused IV fluids and started on fluid drip. Patient's night in the ED was unremarkable. In the morning Case was discussed with hospitalist who was agreed to admit the patient. Consultations Consultation #1: Case discussed with hospitalist who is graciously excepted patient to be admitted, Dr. Forrest Time: 07:13 Vital Signs Vital signs: Vital Signs Temperature 100.1 F H 04/03/22 18:31 Pulse Rate 101 H 04/03/22 18:31 Respiratory Rate 24 H 04/03/22 18:31 Blood Pressure 146/94 04/03/22 18:31 Pulse Oximetry (%) 91 04/03/22 18:31 Oxygen Delivery Method 04/03/22 18:31 Temperature 98.9 F 04/03/22 21:05 Pulse Rate 97 H 04/04/22 07:33 Respiratory Rate 24 H 04/03/22 18:31 Blood Pressure 140/65 04/04/22 06:29 Pulse Oximetry (%) 96 04/04/22 07:33 Oxygen Delivery Method 04/03/22 18:31 MDM MDM Narrative Medical decision making narrative: Narrative: Sepsis Sepsis Identified: Yes Time Zero: 1999 Differential Diagnosis Differential Diagnosis: Cellulitis Medical Records Medical records reviewed: Yes I reviewed the patient's medical records. Lab Data Lab results reviewed: Yes I reviewed the patient's lab results. Result diagrams: 04/03/22 19:02 Labs: Lab Results 04/03/22 04/03/22 04/03/22 Range/Units 19:02 19:02 19:13 WBC 21.9 H (4.5-11.0) K/mcL RBC 4.16 L (4.63-6.08) M/mcL Hgb 13.6 L (13.7-17.5) g/dL Hct 39.3 L (40.1-51.0) % POC Hct (41-55) MCV 94.5 (80.0-100.0) fL MCH 32.7 (26.0-34.0) pg MCHC 34.6 (31.0-36.0) g/dL RDW 12.1 (11.5-14.5) % Plt Count 203 (140-440) K/mcL MPV 8.9 (8.8-12.5) fL Immature Gran % (Auto) 1.6 H (0.0-0.5) % Neut % (Auto) 88.2 H (38.0-78.0) % Lymph % (Auto) 4.4 L (15.5-49.0) % [place] % (Auto) 5.0 (1.0-12.0) % Eos % (Auto) 0.5 (0.0-7.0) % Baso % (Auto) 0.3 (0.0-2.0) % Lymph # (Auto) 0.97 L (1.50-4.80) K/mcL [place] # (Auto) 1.09 H (0.10-0.90) K/mcL Eos # (Auto) 0.10 (0.00-0.70) K/mcL Baso # (Auto) 0.07 (0.00-0.30) K/mcL Immature Gran # 0.34 H (0.00-0.05) K/mcl Absolute Neutrophils 19.33 H (1.80-8.00) K/mcL POC VBG pH 7.47 H (7.32-7.42) POC VBG pCO2 at Temp 34.6 L (41-51) POC VBG pO2 47 H (25-40) POC VBG HCO3 25.4 (24-28) POC VBG Total CO2 26.0 (25-29) POC Venous O2 Sat 86.0 H (40-70) POC VBG Base Excess 2.0 (-2-2) VBG Lactic Acid 1.5 (0.5-2) POC Sodium (133-145) POC Potassium (3.3-5.1) POC Chloride (96-108) POC Total CO2 (22-30) POC BUN (6-20) POC Creatinine (0.6-1.2) POC Glucose (70-105) POC WB Ioniz Calcium (1.16-1.32) Total Bilirubin 0.8 (0.1-1.0) mg/dL Direct Bilirubin 0.2 (<0.3) mg/dL AST 17 (<40) U/L ALT < 5 (<40) U/L Alkaline Phosphatase 126 H (39-117) U/L Total Protein 7.0 (5.9-8.4) gm/dL Albumin 3.8 (3.2-5.2) gm/dL Globulin 3.2 (2.2-3.7) gm/dL Urine Color Urine Appearance (Clear) Urine pH (5.0-9.0) Ur Specific [place] (1.000-1.035) Urine Protein (Negative) mg/dL Urine Glucose (UA) (Negative) mg/dL Urine Ketones (Negative) mg/dL Urine Occult Blood (Negative) mg/dL Urine Nitrate (Negative) Urine Bilirubin (Negative) mg/dL Urine Urobilinogen mg/dL Ur Leukocyte Esterase (Negative) /uL Ur Culture Indicated? POC Troponin I (0.00-0.08) 04/03/22 04/03/22 04/03/22 Range/Units 19:16 19:38 20:09 WBC (4.5-11.0) K/mcL RBC (4.63-6.08) M/mcL Hgb (13.7-17.5) g/dL Hct (40.1-51.0) % POC Hct 40.0 L (41-55) MCV (80.0-100.0) fL MCH (26.0-34.0) pg MCHC (31.0-36.0) g/dL RDW (11.5-14.5) % Plt Count (140-440) K/mcL MPV (8.8-12.5) fL Immature Gran % (Auto) (0.0-0.5) % Neut % (Auto) (38.0-78.0) % Lymph % (Auto) (15.5-49.0) % [place] % (Auto) (1.0-12.0) % Eos % (Auto) (0.0-7.0) % Baso % (Auto) (0.0-2.0) % Lymph # (Auto) (1.50-4.80) K/mcL [facility] # (Auto) (0.10-0.90) K/mcL Eos # (Auto) (0.00-0.70) K/mcL Baso # (Auto) (0.00-0.30) K/mcL Immature Gran # (0.00-0.05) K/mcl Absolute Neutrophils (1.80-8.00) K/mcL POC VBG pH (7.32-7.42) POC VBG pCO2 at Temp (41-51) POC VBG pO2 (25-40) POC VBG HCO3 (24-28) POC VBG Total CO2 (25-29) POC Venous O2 Sat (40-70) POC VBG Base Excess (-2-2) VBG Lactic Acid (0.5-2) POC Sodium 133 (133-145) POC Potassium 4.3 (3.3-5.1) POC Chloride 97 (96-108) POC Total CO2 23.0 (22-30) POC BUN 26 H (6-20) POC Creatinine 1.0 (0.6-1.2) POC Glucose 114 H (70-105) POC WB Ioniz Calcium 1.14 L (1.16-1.32) Total Bilirubin (0.1-1.0) mg/dL Direct Bilirubin (<0.3) mg/dL AST (<40) U/L ALT (<40) U/L Alkaline Phosphatase (39-117) U/L Total Protein (5.9-8.4) gm/dL Albumin (3.2-5.2) gm/dL Globulin (2.2-3.7) gm/dL Urine Color Yellow Urine Appearance Clear (Clear) Urine pH 5.0 (5.0-9.0) Ur Specific [place] 1.020 (1.000-1.035) Urine Protein Negative (Negative) mg/dL Urine Glucose (UA) Negative (Negative) mg/dL Urine Ketones 5 A (Negative) mg/dL Urine Occult Blood Negative (Negative) mg/dL Urine Nitrate Negative (Negative) Urine Bilirubin Negative (Negative) mg/dL Urine Urobilinogen Negative mg/dL Ur Leukocyte Esterase Negative (Negative) /uL Ur Culture Indicated? No POC Troponin I 0.02 (0.00-0.08) ED POC Tests ED POC Tests: HIMA - Influenza A Negative HIMA - Influenza B Negative HIMA - SARS Antigen Negative EKG Data EKG #1: EKG attestation: Yes I reviewed and interpreted this EKG. EKG shows normal: sinus rhythm Rate: tachycardia (96) Rhythm: NSR [place]/QRS: normal QTc: normal QRS morphology: Present normal Interpretation: nonspecific ST-T wave changes Discharge Plan Patient/Caregiver Discharge Instructions Pt seen by HYDROGRAPHY TEACHER/PA only: No Clinical Impression: Sepsis, Cellulitis of sacral region Patient Disposition: Xfer As Outpt/Obs (TS) Condition: Fair Follow up with: Marcus Dawson MD [Primary Care Provider] - Prescriptions: No Action clonidine HCl 0.1 mg tablet 0.1 mg PO Q8H PRN (Reason: hypertensive emergency) Qty: 90 0RF Rx Instructions: As needed for BP > 160/100 levothyroxine 50 mcg tablet 50 mcg PO QDAY 90 Days Qty: 90 3RF lisinopril 20 mg tablet 20 mg PO BID 90 Days Qty: 180 3RF meloxicam 15 mg tablet 15 mg PO QDAY 90 Days Qty: 90 3RF venlafaxine 75 mg tablet 75 mg PO BID 90 Days Qty: 180 1RF metoprolol tartrate 100 mg tablet 100 mg PO BID 90 Days Qty: 180 3RF amlodipine 2.5 mg tablet 2.5 mg PO QDAY Qty: 90 1RF nystatin 100,000 unit/gram powder 1 applic topical BID Qty: 60 1RF tamsulosin 0.4 mg capsule 0.4 mg PO BID 90 Days Qty: 180 3RF hydrocodone-acetaminophen 5-325 mg tablet 1 tab PO TID PRN (Reason: pain) Qty: 90 0RF docusate sodium 100 mg capsule 100 mg PO QDAY 90 Days Qty: 90 1RF multivitamin [Multiple Vitamins] Tablet 1 tab PO QAM aspirin 81 mg tablet,delayed release (DR/EC) 81 mg PO QDAY coenzyme Q10 100 mg capsule 100 mg PO QDAY cholecalciferol (vitamin D3) 125 mcg (5,000 unit) capsule 125 mcg PO QDAY Rytary 36.25-145 mg capsule, extended release 4 cap PO TID guaifenesin 600 mg tablet extended release 12hr 600 mg PO Q12H Remedy Antifungal 2 % powder See Rx Instructions topical .COMPLEX PRN (Reason: Incontinence) Rx Instructions: topical; acetaminophen 325 mg tablet 650 mg PO Q4H PRN (Reason: KENDALL, Mild-Mod Joint Pain, Fever>99.9) polyethylene glycol 3350 [ClearLax] 17 gram/dose powder 17 g PO QDAY PRN (Reason: constipation) magnesium hydroxide [Milk of Magnesia] 400 mg/5 mL suspension 30 ml PO QDAY PRN (Reason: constipation) cephalexin 500 mg capsule 500 mg PO QID Qty: 12 0RF
[2022-04-03] MEDS: 0.9 % SODIUM CHLORIDE 1,000 ML IV SCH (22:18)
[2022-04-03] MEDS ORDERED: HYDROcodone/APAP 5/325MG TABLET PO ONE (22:57)
[2022-04-04] MEDS ORDERED: diphenhydrAMINE 50 MG/ML VIAL IV ONE (02:37)
[2022-04-04] MEDS: 0.9 % SODIUM CHLORIDE 1,000 ML IV SCH ×3 (06:27→19:03)
[2022-04-04] MEDS: HYDROcodone/APAP 5/325MG TABLET PO PRN (07:38)
[2022-04-04] MEDS ORDERED: HYDROcodone/APAP 5/325MG TABLET PO PRN (08:55)
[2022-04-04] MEDS ORDERED: MAGNESIUM HYDROXIDE 30 ML ORAL.SUSP PO PRN (08:55)
[2022-04-04] MEDS ORDERED: DOCUSATE SODIUM 100 MG CAPSULE PO SCH (09:00)
--- NOTE | 2022-04-04 09:15 | Internal Med History&Physical ---
HPI History of Present Illness Patient information: Note initiated : 04/04/22 at 9:09 am Service Date, if different from initiated Date: [] Patient: Kris Graham a 82 y/o M admitted on for fever, cellulitis. Chief Complaint: [tachycardia, tachypnea, fever] Chief complaint: tachycardia, tachypnea, fever History of present illness: Mr. Graham is a 82 year old M history of Parkinson disease, essential hypertensions, mixed dyslipidemia, hypothyroidism, BPH, recently hospitalized in our facility about a week ago for buttock cellulitis with sepsis, being treated with empiric IV antibiotics Rocephin, being discharged on March 27, 2022 with oral antibiotics Keflex back to his assisted living facility [facility], presented back to the ED last evening after the staff found that he was having tachycardia, tachypnea, and fever. It is unclear if the patient has been compliant to his prescribed antibiotics. When he presented to the ED, his heart rate was in the low 100s, rate of breathing in the mid 20s, and fever with T-max 38.2 C. The patient himself does not have any complaint or discomfort or pain. He denies any subjective fever or chills at the moment. He denies any buttock pain or irritations. He denies any GI upset such as nausea vomiting diarrhea constipation's. He denies any confusions or lethargy. There was no culture growth from previous visit. Labs significant for WBC 21.9, H&H 13.6 and 39.3. Lactic acid 1.5. POC creatinine 1.0. Chest x-ray performed in the ED showed no acute abnormalities either. Constitutional Constitutional: Absent chills, excessive sweating, fatigue, fever(s) or weakness EENT Eyes: Absent blurry vision, change in vision, loss of vision or other visual disturbances Ears: Absent decreased hearing or tinnitus Nose, mouth and throat: Absent abnormal hearing, dry mouth, headache(s), nasal congestion or sore throat Cardiovascular Cardiovascular: Absent chest pain, chest pain at rest, edema, irregular heart rhythm or palpatations Respiratory Respiratory: Absent cough, dyspnea or wheezing Gastrointestinal Gastrointestinal: Absent abdominal pain, constipation, diarrhea, nausea or vomiting Musculoskeletal Musculoskeletal: Absent back pain, deformity, limited range of motion, muscle cramps, muscle weakness or numbness Integumentary Integumentary: Absent lesions, rash or wounds Neurological Neurological: Absent focal weakness, headache(s) or numbness Psychiatric Psychiatric: Absent anxiety, depression or hallucinations PFSH PFSH All Active Problems (Updated 04/04/22 @ 09:20 by Vincent Forrest MD) Anemia, normocytic normochromic (Acute) Mixed dyslipidemia (Acute) Essential hypertension (Acute) Cellulitis of back (Acute) Sepsis (Acute) Generalized weakness (Acute) Falls frequently (Acute) Sepsis (Acute) Cellulitis of sacral region (Acute) Head injury (Acute) Fall (Acute) Abrasion of forehead (Acute) Fall (Acute) Rib pain on left side (Acute) Medicare annual wellness visit, initial (Acute) Chronic pain (Chronic) Lumbar radiculopathy (Chronic) Lumbar stenosis with neurogenic claudication (Chronic) Lower back pain (Chronic) Constipation (Chronic) BPH (benign prostatic hyperplasia) (Chronic) Hypothyroid (Chronic) Thyroid gland disease (Chronic) Joint pain (Chronic) High cholesterol (Chronic) High blood pressure (Chronic) Parkinsons disease (Chronic ~2012) History of heart artery stent (Chronic ~2008) Heart attack (Chronic ~2008) Daytime sleepiness (Chronic) Muscle pain (Chronic ~2012) Arthritis (Chronic) Anxiety (Chronic) Medical History Anxiety Arthritis BPH (benign prostatic hyperplasia) Chronic pain Constipation Daytime sleepiness Heart attack (~2008) High blood pressure High cholesterol Hypothyroid Joint pain Lower back pain Lumbar radiculopathy Lumbar stenosis with neurogenic claudication Medicare annual wellness visit, initial Muscle pain (~2012) Parkinsons disease (~2012) Thyroid gland disease Surgical History History of heart artery stent (~2008) Family History Aunt Dementia Mother Arthritis, rheumatoid Parkinson disease Father Polycystic kidney disease Hypertension Sister Parkinson disease Social History household members: alone housing: assisted living facility marital status: education level: college occupational status: retired occupation: Electronic Engineering Technician smoking status: Never smoker alcohol intake frequency: a few times a week substance use type: does not use MEDS/ALLERGIES Home Medications and Allergies Home Medications Medication Instructions Recorded Confirmed Type multivitamin (Multiple Vitamins 1 tab PO QAM 04/08/20 04/03/22 History tablet) docusate sodium 100 mg capsule 100 mg PO QDAY 90 days #90 caps 04/13/20 04/03/22 Rx aspirin 81 mg tablet,delayed 81 mg PO QDAY 09/06/20 04/03/22 History release cholecalciferol (vitamin D3) 125 125 mcg PO QDAY 09/06/20 04/03/22 History mcg (5,000 unit) capsule coenzyme Q10 100 mg capsule 100 mg PO QDAY 09/06/20 04/03/22 History acetaminophen 325 mg tablet 650 mg PO Q4H PRN KENDALL, Mild-Mod 09/21/20 04/03/22 History Joint Pain, Fever>99.9 magnesium hydroxide 400 mg/5 mL 30 ml PO QDAY PRN constipation 09/21/20 04/03/22 History oral suspension (Milk of Magnesia) polyethylene glycol 3350 17 17 g PO QDAY PRN constipation 09/21/20 04/03/22 History gram/dose oral powder (ClearLax) clonidine HCl 0.1 mg tablet 0.1 mg PO Q8H PRN hypertensive 04/27/21 04/03/22 Rx emergency #90 tabs carbidopa ER 36.25 mg-levodopa 145 4 cap PO TID 09/08/21 04/03/22 History mg capsule,extended release (Rytary) guaifenesin 600 mg tablet, 600 mg PO Q12H 09/08/21 04/03/22 History extended release 12 hr miconazole nitrate 2 % topical See Rx Instructions topical 09/08/21 04/03/22 History powder (Remedy Antifungal) .COMPLEX PRN Incontinence levothyroxine 50 mcg tablet 50 mcg PO QDAY 90 days #90 tabs 10/10/21 04/03/22 Rx lisinopril 20 mg tablet 20 mg PO BID 90 days #180 tabs 10/10/21 04/03/22 Rx meloxicam 15 mg tablet 15 mg PO QDAY 90 days #90 tabs 10/10/21 04/03/22 Rx venlafaxine 75 mg tablet 75 mg PO BID 90 days #180 tabs 11/08/21 04/03/22 Rx metoprolol tartrate 100 mg tablet 100 mg PO BID 90 days #180 tabs 11/10/21 04/03/22 Rx amlodipine 2.5 mg tablet 2.5 mg PO QDAY #90 tabs 12/13/21 04/03/22 Rx nystatin 100,000 unit/gram topical 1 applic topical BID #60 grams 03/07/22 04/03/22 Rx powder cephalexin 500 mg capsule 500 mg PO QID #12 caps 03/26/22 04/03/22 Rx hydrocodone 5 mg-acetaminophen 325 1 tab PO TID PRN pain #90 tabs 03/29/22 04/03/22 Rx mg tablet tamsulosin 0.4 mg capsule 0.4 mg PO BID 90 days #180 caps 03/29/22 04/03/22 Rx Allergies Allergy/AdvReac Type Severity Reaction Status Date / Time No Known Drug Allergies Allergy Verified 03/23/22 20:12 EXAM Constitutional Vitals: Temp Pulse Resp BP Pulse Ox O2 Del Method 37.2 C 89 24 H 140/65 94 04/03/22 21:05 04/04/22 08:49 04/03/22 18:31 04/04/22 06:29 04/04/22 08:49 04/03/22 18:31 General appearance: cooperative and no acute distress Head Head exam: Present atraumatic and normocephalic Eye Eye exam: Present EOMI and PERRL ENT ENT exam: Present mucous membranes moist, normal exam and normal external ear exam Neck Neck exam: Present normal inspection; Absent lymphadenopathy, tenderness or thyromegaly Respiratory Respiratory exam: Absent accessory muscle use, respiratory distress or wheezes Cardiovascular Cardiovascular exam: Present normal rate and rhythm; Absent JVD GI/Abdominal GI/Abdominal exam: Present normal bowel sounds and soft; Absent organomegaly or tenderness Rectal Rectal exam: Present deferred Extremities Exam Extremities exam: Present full ROM, normal capillary refill and normal inspection; Absent tenderness Neurological Exam Neurological exam: Present alert, CN II-XII intact and oriented X3; Absent motor sensory deficit Additional comments: increased extremities tremors Psychiatric Psychiatric exam: Present normal affect and normal mood; Absent anxious or depressed Skin Skin exam: Present dry; Absent intact Additional comments: stage 1 ulcers bilateral buttock with erythema, warmth to touch DATA Data Completed and Pending Labs: Labs from last 24 hours 04/03/22 04/03/22 04/03/22 20:09 19:38 19:16 WBC RBC Hgb Hct POC Hct 40.0 L MCV MCH MCHC RDW Plt Count MPV Immature Gran % (Auto) Neut % (Auto) Lymph % (Auto) [place] % (Auto) Eos % (Auto) Baso % (Auto) Lymph # (Auto) [place] # (Auto) Eos # (Auto) Baso # (Auto) Immature Gran # Absolute Neutrophils POC VBG pH POC VBG pCO2 at Temp POC VBG pO2 POC VBG HCO3 POC VBG Total CO2 POC Venous O2 Sat POC VBG Base Excess VBG Lactic Acid POC Sodium 133 POC Potassium 4.3 POC Chloride 97 POC Total CO2 23.0 POC BUN 26 H POC Creatinine 1.0 POC Glucose 114 H POC WB Ioniz Calcium 1.14 L Total Bilirubin Direct Bilirubin AST ALT Alkaline Phosphatase Total Protein Albumin Globulin Urine Color Yellow Urine Appearance Clear Urine pH 5.0 Ur Specific [place] 1.020 Urine Protein Negative Urine Glucose (UA) Negative Urine Ketones 5 A Urine Occult Blood Negative Urine Nitrate Negative Urine Bilirubin Negative Urine Urobilinogen Negative Ur Leukocyte Esterase Negative Ur Culture Indicated? No POC Troponin I 0.02 04/03/22 04/03/22 04/03/22 19:13 19:02 19:02 WBC 21.9 H RBC 4.16 L Hgb 13.6 L Hct 39.3 L POC Hct MCV 94.5 MCH 32.7 MCHC 34.6 RDW 12.1 Plt Count 203 MPV 8.9 Immature Gran % (Auto) 1.6 H Neut % (Auto) 88.2 H Lymph % (Auto) 4.4 L [place] % (Auto) 5.0 Eos % (Auto) 0.5 Baso % (Auto) 0.3 Lymph # (Auto) 0.97 L [place] # (Auto) 1.09 H Eos # (Auto) 0.10 Baso # (Auto) 0.07 Immature Gran # 0.34 H Absolute Neutrophils 19.33 H POC VBG pH 7.47 H POC VBG pCO2 at Temp 34.6 L POC VBG pO2 47 H POC VBG HCO3 25.4 POC VBG Total CO2 26.0 POC Venous O2 Sat 86.0 H POC VBG Base Excess 2.0 VBG Lactic Acid 1.5 POC Sodium POC Potassium POC Chloride POC Total CO2 POC BUN POC Creatinine POC Glucose POC WB Ioniz Calcium Total Bilirubin 0.8 Direct Bilirubin 0.2 AST 17 ALT < 5 Alkaline Phosphatase 126 H Total Protein 7.0 Albumin 3.8 Globulin 3.2 Urine Color Urine Appearance Urine pH Ur Specific [place] Urine Protein Urine Glucose (UA) Urine Ketones Urine Occult Blood Urine Nitrate Urine Bilirubin Urine Urobilinogen Ur Leukocyte Esterase Ur Culture Indicated? POC Troponin I A/P Assessment and plan (1) Sepsis: Status: Acute (2) Cellulitis of back: Status: Acute (3) BPH (benign prostatic hyperplasia): Status: Chronic Qualifiers: Lower urinary tract symptom presence: symptoms present Lower urinary tract symptom detail: unspecified Qualified Code(s): N40.1 - Benign prostatic hyperplasia with lower urinary tract symptoms (4) Parkinsons disease: Status: Chronic (5) Hypothyroid: Status: Chronic Qualifiers: Hypothyroidism type: acquired Qualified Code(s): E03.9 - Hypothyroidism, unspecified (6) Essential hypertension: Status: Acute (7) Mixed dyslipidemia: Status: Acute (8) Anemia, normocytic normochromic: Status: Acute Narrative A/P Narrative: Assessment and Plans: 1. Sepsis associated with buttock decubitus ulcer/cellulitis: Inpatient med surg Serial lactic acid Procalcitonin ESR/CRP MRSA screening Blood culture s/p IV fluid bolus given in the ER, to be followed by [id number]/hr Vancomycin Zosyn Wound care consult Physical therapy 2. Essential hypertension: Currently normotensive Amlodipine Lisinopril Hydralazine 10mg IV q4-6mg PRN SBP>=180 and/or DBP>=110mmHg 3. Mixed dyslipidemia: Continue to monitor 4. Parkinson's Disease: Carbidopa-Levodopa 5. BPH: Continue Flomax GI ppx: not currently indicated DVT ppx: Lovenox Code status: Full Prognosis: guarded Disposition: inpatient med surg; PT Time Spent With Patient Time: Total time spent is greater than 50% in coordination of care (as documented) at patient's floor/unit and/or counseling patient: Total time spent with greater than 50% in coordination of care (as documented) at patient's floor/unit and/or counseling patient:: 50 - 70 minutes
[2022-04-04] MEDS ORDERED: POLYETHYLENE GLYCOL 3350 17 GM PACKET PO PRN (09:17)
[2022-04-04] MEDS ORDERED: MICONAZOLE NITRATE 2% TOPICAL PRN (09:22)
[2022-04-04] MEDS: TAMSULOSIN 0.4 MG CAPSULE PO SCH ×2 (11:34→21:11)
[2022-04-04] MEDS: METOPROLOL TARTRATE 50 MG TABLET PO SCH ×2 (11:34→21:11)
[2022-04-04] MEDS: VENLAFAXINE 75 MG TABLET PO SCH ×2 (11:34→21:11)
[2022-04-04] MEDS: guaiFENesin 600 MG TAB.SR.12H PO SCH ×2 (11:34→21:21)
[2022-04-04] MEDS: LISINOPRIL 20 MG TABLET PO SCH ×2 (11:34→21:12)
[2022-04-04] MEDS: LEVOTHYROXINE 50 MCG TABLET PO SCH (11:34)
--- NOTE | 2022-04-04 12:35 | EKG ---
[facility] Test Date: 2022-04-03 Pat Name: Kris Graham Department: ED Room: Gender: Male Hospice Spiritual Care Coordinator: SB : 1940 Requested By: Ron Montenegro Order Number: [id number] Reading MD: Lenny Ramirez Measurements Intervals [place] Rate: 96 P: MS: QRS: -28 QRSD: 88 T: 73 QT: 369 QTc: 467 Interpretive Statements Atrial flutter Borderline left axis deviation Abnormal R-wave progression, late transition Electronically Signed On 04-04-2022 12:35:24 PDT by Lenny Ramirez /[email or web address]/[id number]
[2022-04-04] MEDS ORDERED: IPRATROPIUM/ALBUTEROL 3 ML AMPUL.NEB NEB PRN (13:04)
[2022-04-04] MEDS ORDERED: traZODone HCL 50 MG TABLET PO PRN (13:04)
[2022-04-04] MEDS ORDERED: ONDANSETRON 4 MG/2 ML VIAL IV PRN (13:04)
[2022-04-04] MEDS ORDERED: hydrALAZINE 20 MG/ML VIAL IV PRN (13:04)
[2022-04-04] MEDS ORDERED: morphine 4 MG/ML VIAL IV PRN (13:04)
[2022-04-04] MEDS ORDERED: VANCOMYCIN PER PHARMACY IV SCH (13:04)
[2022-04-04] MEDS ORDERED: ACETAMINOPHEN 325 MG TABLET PO PRN (13:04)
[2022-04-04] MEDS: NYSTATIN POWDER BOTTLE 15GM TOPICAL SCH ×2 (13:07→21:21)
[2022-04-04] MEDS ORDERED: VANCOMYCIN 1,250 MG in 0.9 % SODIUM CHLORIDE 500 ML IV SCH (13:30)
[2022-04-04] MEDS: DOCUSATE SODIUM 100 MG CAPSULE PO SCH ×2 (15:03→21:13)
[2022-04-04] MEDS: ENOXAPARIN 40 MG/0.4 ML SYRINGE SQ SCH (15:27)
[2022-04-04] MEDS: PIPERACILLIN SODIUM/TAZOBACTAM 3.375 GM in DEXTROSE 5% IN WATER 50 ML IV SCH ×2 (15:28→21:06)
[2022-04-04] MEDS: 0.9 % SODIUM CHLORIDE 10 ML SYRINGE IV SCH ×2 (15:28→21:59)
[2022-04-04] MEDS: SENNOSIDES 1 TABLET PO SCH (21:11)
[2022-04-04] MEDS: ACETAMINOPHEN 325 MG TABLET PO PRN (21:13)
[2022-04-05] MEDS: PIPERACILLIN SODIUM/TAZOBACTAM 3.375 GM in DEXTROSE 5% IN WATER 50 ML IV SCH ×4 (02:10→16:52)
[2022-04-05] MEDS: 0.9 % SODIUM CHLORIDE 1,000 ML IV SCH ×2 (05:39→16:52)
[2022-04-05] MEDS: 0.9 % SODIUM CHLORIDE 10 ML SYRINGE IV SCH ×3 (05:40→22:25)
[2022-04-05 06:47] LABS: Basophils # (Auto) 0.05 K/mcL (0.00-0.30); Basophils % (Auto) 0.3 % (0.0-2.0); Eosinophils # (Auto) 0.19 K/mcL (0.00-0.70); Eosinophils % (Auto) 1.1 % (0.0-7.0); Hematocrit 34.3 % (40.1-51.0); Hemoglobin 11.8 g/dL (13.7-17.5); Lymphocytes # (Auto) 1.28 K/mcL (1.50-4.80); Lymphocytes % (Auto) 7.6 % (15.5-49.0); Mean Cell Volume 96.3 fL (80.0-100.0); Mean Corpuscular HGB Conc 34.4 g/dL (31.0-36.0); Mean Platelet Volume 9.2 fL (8.8-12.5); Monocytes # (Auto) 1.16 K/mcL (0.10-0.90); Monocytes % (Auto) 6.9 % (1.0-12.0); Neutrophils % (Auto) 83.4 % (38.0-78.0); Platelet Count 185 K/mcL (140-440); RBC 3.56 M/mcL (4.63-6.08); Red Cell Distribution Width 12.2 % (11.5-14.5); WBC 16.9 K/mcL (4.5-11.0)
[2022-04-05 07:15] LABS: ALT/SGPT < 5 U/L (<40); AST/SGOT 15 U/L (<40); Albumin 3.2 gm/dL (3.2-5.2); Albumin/Globulin Ratio 1.5 (1.0-2.3); Alkaline Phosphatase 116 U/L (39-117); Bilirubin,Total 1.1 mg/dL (0.1-1.0); Blood Urea Nitrogen 15 mg/dL (8-23); Calcium 8.1 mg/dL (8.6-10.4); Carbon Dioxide 24 mmol/L (22-30); Chloride 100 mmol/L (96-108); Globulin 2.1 gm/dL (2.2-3.7); Glomerular Filtration Rate 79; Glucose 92 mg/dL (70-105); Phosphorous 2.6 mg/dL (2.5-4.5)
[2022-04-05] MEDS: ENOXAPARIN 40 MG/0.4 ML SYRINGE SQ SCH (08:51)
[2022-04-05] MEDS: LISINOPRIL 20 MG TABLET PO SCH ×2 (08:52→21:05)
[2022-04-05] MEDS: VENLAFAXINE 75 MG TABLET PO SCH ×2 (08:52→21:05)
[2022-04-05] MEDS: MULTIVIT,THER IRON,CA,FA & MIN 1 TABLET PO SCH (08:52)
[2022-04-05] MEDS: ASPIRIN 81 MG TAB.CHEW PO SCH (08:52)
[2022-04-05] MEDS: LEVOTHYROXINE 50 MCG TABLET PO SCH (08:53)
[2022-04-05] MEDS: amLODIPine 5 MG TABLET PO SCH (08:53)
[2022-04-05] MEDS: MELOXICAM 7.5 MG TABLET PO SCH (08:54)
[2022-04-05] MEDS: METOPROLOL TARTRATE 50 MG TABLET PO SCH ×2 (08:54→21:04)
[2022-04-05] MEDS: DOCUSATE SODIUM 100 MG CAPSULE PO SCH ×2 (08:55→22:24)
[2022-04-05] MEDS: NYSTATIN POWDER BOTTLE 15GM TOPICAL SCH ×2 (08:56→22:24)
[2022-04-05] MEDS: VITAMIN D3 125 MCG TABLET PO SCH (08:56)
[2022-04-05] MEDS: TAMSULOSIN 0.4 MG CAPSULE PO SCH ×2 (08:56→21:04)
[2022-04-05] MEDS: guaiFENesin 600 MG TAB.SR.12H PO SCH ×2 (08:56→21:13)
--- NOTE | 2022-04-05 10:41 | Internal Med Progress Note ---
SUBJECTIVE Subjective Patient information: Note initiated : 04/05/22 at 10:37 am Service Date, if different from initiated Date: [] Patient: Kris Graham a 82 y/o M admitted on 04/04/22 for fever, cellulitis. Chief Complaint: [] Interval history: Mr. Graham is a 82 year old M history of Parkinson disease, essential hypertensions, mixed dyslipidemia, hypothyroidism, BPH, recently hospitalized in our facility about a week ago for buttock cellulitis with sepsis, being treated with empiric IV antibiotics Rocephin, being discharged on March 27, 2022 with oral antibiotics Keflex back to his assisted living facility [facility], presented back to the ED last evening after the staff found that he was having tachycardia, tachypnea, and fever. It is unclear if the patient has been compliant to his prescribed antibiotics. When he presented to the ED, his heart rate was in the low 100s, rate of breathing in the mid 20s, and fever with T- max 38.2 C. The patient himself does not have any complaint or discomfort or pain. He denies any subjective fever or chills at the moment. He denies any buttock pain or irritations. He denies any GI upset such as nausea vomiting diarrhea constipation's. He denies any confusions or lethargy. There was no culture growth from previous visit. Labs significant for WBC 21.9, H&H 13.6 and 39.3. Lactic acid 1.5. POC creatinine 1.0. Chest x-ray performed in the ED showed no acute abnormalities either. 04/05: Afebrile overnight. WBC decreased from 21.9-16.9. Culture no growth today. MRSA screening negative. Patient denies any talk pain or irritations. He denies any subjective fever chills or diaphoresis. DC vancomycin. Continue Zosyn. Continue to monitor culture results. Continue IV fluids. Physical therapy evaluation and treatments for placement pending. Continue to touch base with wound care team for wound care management. Constitutional Vitals: Vital Signs Temp Pulse Resp BP Pulse Ox O2 Del Method 37.2 C 70 20 160/88 95 04/05/22 08:00 04/05/22 08:00 04/05/22 08:00 04/05/22 08:00 04/05/22 08:00 04/05/22 08:00 Period Temp Pulse Resp BP Sys/Norris Pulse Ox O2 Del Method O2 Flow Rate Last 24 Hr 36.7 C-37.2 C 65-87 16-24 123-160/54-88 92-99 Room Air-Room Air Intake and Output 04/04/22 04/05/22 04/05/22 21:59 05:59 13:59 Intake Total 2188 1050 170 Output Total 655 3 100 Balance 1533 1047 70 Weight 105.007 kg Intake & Output: Intake & Output 04/04/22 04/05/22 04/05/22 21:59 05:59 13:59 Intake Total 2188 1050 170 Output Total 655 3 100 Balance 1533 1047 70 Weight 105.007 kg Intake: IV 1528 1050 50 Sodium Chloride 0.9% 1,000 ml @ 928 1000 100 mls/hr IV .Q10H [facility] Rx#: [id number] Zosyn 3.375 gm In Dextrose 5% 100 50 50 in Water 50 ml @ 100 mls/hr IV Q6H [facility] Rx#:[id number] Vancomycin 1,250 mg In Sodium 500 Chloride 0.9% 500 ml @ 333.3 mls/hr IV Q24H [facility] Rx#: [id number] Oral 660 0 120 Output: Void Amount 350 100 # of times incontinent of urine 5 3 Stool 300 Other: Meal Dinner Breakfast Percent of Meal Consumed 50% 100% Feeding Ability Independent Needs Supervision Urine Appearance Clear Urine Color Pale Urine Odor Normal Normal Stool Size Moderate Small Large Stool Color Brown Brown Brown Yellow Yellow Stool Consistency Loose Loose Soft Liquid # Voids 1 1 # Bowel Movements 2 # of times incontinent of 1 Bowels General appearance: average body habitus, cooperative and no acute distress Head Head exam: Present atraumatic and normal inspection Eye Eye exam: Present normal appearance ENT ENT exam: Present mucous membranes moist, normal exam and normal external ear exam Neck Neck exam: Present normal inspection Respiratory Respiratory exam: Present normal respiratory exam Cardiovascular Cardiovascular exam: Present normal rate and rhythm GI/Abdominal GI/Abdominal exam: Present normal bowel sounds Back Exam Back exam: Present normal inspection Neurological Exam Neurological exam: Present alert and oriented X3 Additional comments: increased extremities tremors Skin Skin exam: Present erythema, intact and warm Additional comments: stage 1 ulcers bilateral buttock with erythema, warmth to touch OBJ DATA Labs CBC & Chem 7: 04/05/22 05:51 04/05/22 05:50 Labs: Abnormal Lab Results 04/05/22 04/05/22 04/04/22 05:51 05:50 13:29 WBC 16.9 H RBC 3.56 L Hgb 11.8 L Hct 34.3 L POC Hct Immature Gran % (Auto) 0.7 H Neut % (Auto) 83.4 H Lymph % (Auto) 7.6 L Lymph # (Auto) 1.28 L [place] # (Auto) 1.16 H Immature Gran # 0.11 H Absolute Neutrophils 14.06 H ESR POC VBG pH POC VBG pCO2 at Temp POC VBG pO2 POC Venous O2 Sat Sodium 132 L POC BUN POC Glucose Calcium 8.1 L POC WB Ioniz Calcium Total Bilirubin 1.1 H Alkaline Phosphatase C-Reactive Protein Total Protein 5.3 L Globulin 2.1 L Procalcitonin 0.25 H Urine Ketones 04/04/22 04/04/22 04/03/22 13:29 13:29 20:09 WBC RBC Hgb Hct POC Hct Immature Gran % (Auto) Neut % (Auto) Lymph % (Auto) Lymph # (Auto) [place] # (Auto) Immature Gran # Absolute Neutrophils ESR 36 H POC VBG pH POC VBG pCO2 at Temp POC VBG pO2 POC Venous O2 Sat Sodium POC BUN POC Glucose Calcium POC WB Ioniz Calcium Total Bilirubin Alkaline Phosphatase C-Reactive Protein 11.50 H Total Protein Globulin Procalcitonin Urine Ketones 5 A 04/03/22 04/03/22 04/03/22 19:16 19:13 19:02 WBC RBC Hgb Hct POC Hct 40.0 L Immature Gran % (Auto) Neut % (Auto) Lymph % (Auto) Lymph # (Auto) [place] # (Auto) Immature Gran # Absolute Neutrophils ESR POC VBG pH 7.47 H POC VBG pCO2 at Temp 34.6 L POC VBG pO2 47 H POC Venous O2 Sat 86.0 H Sodium POC BUN 26 H POC Glucose 114 H Calcium POC WB Ioniz Calcium 1.14 L Total Bilirubin Alkaline Phosphatase 126 H C-Reactive Protein Total Protein Globulin Procalcitonin Urine Ketones 04/03/22 19:02 WBC 21.9 H RBC 4.16 L Hgb 13.6 L Hct 39.3 L POC Hct Immature Gran % (Auto) 1.6 H Neut % (Auto) 88.2 H Lymph % (Auto) 4.4 L Lymph # (Auto) 0.97 L [place] # (Auto) 1.09 H Immature Gran # 0.34 H Absolute Neutrophils 19.33 H ESR POC VBG pH POC VBG pCO2 at Temp POC VBG pO2 POC Venous O2 Sat Sodium POC BUN POC Glucose Calcium POC WB Ioniz Calcium Total Bilirubin Alkaline Phosphatase C-Reactive Protein Total Protein Globulin Procalcitonin Urine Ketones Meds: Medications Acetaminophen (Acetaminophen 325 Mg Tablet) 325 mg PO Q4HP PRN PRN Reason: PAIN/FEVER > 101 Last Admin: 04/04/22 21:13 Dose: 325 mg Acetaminophen (Acetaminophen 325 Mg Tablet) 650 mg PO Q6HP PRN; Protocol PRN Reason: Per Pain Protocol/Fever > 101 Hydrocodone Bitart/Acetaminophen (Hydrocodone/Apap 5/325mg Tablet) 1 tab PO TIDP PRN; Protocol PRN Reason: Per Pain Protocol Last Admin: 04/04/22 07:38 Dose: 1 tab Hydrocodone Bitart/Acetaminophen (Hydrocodone/Apap 5/325mg Tablet) 1 tab PO TID PRN; Protocol PRN Reason: pain Albuterol/Ipratropium (Ipratropium/Albuterol 3 Ml Ampul.Neb) 3 ml NEB Q4HRT PRN PRN Reason: Wheezing Amlodipine Besylate (Amlodipine 5 Mg Tablet) 2.5 mg PO QDAY [facility] Last Admin: 04/05/22 08:53 Dose: 2.5 mg Aspirin (Aspirin 81 Mg Tab.Chew) 81 mg PO QDAY [facility] Last Admin: 04/05/22 08:52 Dose: 81 mg Docusate Sodium (Docusate Sodium 100 Mg Capsule) 100 mg PO BID [facility] Last Admin: 04/05/22 08:55 Dose: Not Given Enoxaparin Sodium (Enoxaparin 40 Mg/0.4 Ml Syringe) 40 mg SQ DAILY [facility] Last Admin: 04/05/22 08:51 Dose: 40 mg Guaifenesin (Guaifenesin 600 Mg Tab.Sr.12h) 600 mg PO Q12H [facility] Last Admin: 04/05/22 08:56 Dose: 600 mg Hydralazine HCl (Hydralazine 20 Mg/Ml Vial) 10 mg IV Q4-6HP PRN PRN Reason: Hypertension Sodium Chloride (Sodium Chloride 0.9%) 1,000 mls @ 100 mls/hr IV .Q10H [facility] Last Admin: 04/05/22 05:39 Dose: 100 mls/hr Piperacillin Sod/Tazobactam (Sod 3.375 gm/ Dextrose) 50 mls @ 100 mls/hr IV Q6H [facility]; Protocol Last Infusion: 04/05/22 06:36 Dose: Infused Iron Carb/Multivit/Jewelry Maker/Folic Acid (Multivit,Ther Iron,Ca,Fa & Min 1 Tablet) 1 tab PO QAM [facility] Last Admin: 04/05/22 08:52 Dose: 1 tab Levothyroxine Sodium (Levothyroxine 50 Mcg Tablet) 50 mcg PO QDAY [facility] Last Admin: 04/05/22 08:53 Dose: 50 mcg Lisinopril (Lisinopril 20 Mg Tablet) 20 mg PO BID [facility] Last Admin: 04/05/22 08:52 Dose: 20 mg Magnesium Hydroxide (Magnesium Hydroxide 30 Ml Oral.Susp) 30 ml PO QDAY PRN PRN Reason: constipation Meloxicam (Meloxicam 7.5 Mg Tablet) 15 mg PO QDAY [facility] Last Admin: 04/05/22 08:54 Dose: 15 mg Metoprolol Tartrate (Metoprolol Tartrate 50 Mg Tablet) 100 mg PO BID [facility] Last Admin: 04/05/22 08:54 Dose: 100 mg Morphine Sulfate (Morphine 4 Mg/Ml Vial) 4 mg IV Q4HP PRN; Protocol PRN Reason: Per Pain Protocol Nystatin (Nystatin Powder Bottle 15gm) 1 dose TOPICAL BID [facility] Last Admin: 04/05/22 08:56 Dose: Not Given Ondansetron HCl (Ondansetron 4 Mg/2 Ml Vial) 4 mg IV Q6HP PRN PRN Reason: Nausea And Vomiting Coenzyme Q10 100 Mg (Capsule) 1 dose PO QDAY [facility] Last Admin: 04/05/22 10:05 Dose: Not Given Carbidopa-Levodopa [ Rytary] 36.25-145 Mg Capsule 4 dose PO TID [facility] Last Admin: 04/05/22 10:05 Dose: 4 dose Miconazole Nitrate [ Remedy Antifungal] 2 % Powder 1 dose TOPICAL QDP PRN PRN Reason: INFECTION Polyethylene Glycol (Polyethylene Glycol 3350 17 Gm Packet) 17 gm PO QDAY PRN PRN Reason: constipation Senna (Sennosides 1 Tablet) 2 tab PO HS [facility] Last Admin: 04/04/22 21:11 Dose: 2 tab Sodium Chloride (0.9 % Sodium Chloride 10 Ml Syringe) 10 ml IV Q8 [facility] Last Admin: 04/05/22 05:40 Dose: Not Given Tamsulosin HCl (Tamsulosin 0.4 Mg Capsule) 0.4 mg PO BID [facility] Last Admin: 04/05/22 08:56 Dose: 0.4 mg Trazodone HCl (Trazodone Hcl 50 Mg Tablet) 25 mg PO HSP PRN PRN Reason: Insomnia Venlafaxine HCl (Venlafaxine 75 Mg Tablet) 75 mg PO BID [facility] Last Admin: 04/05/22 08:52 Dose: 75 mg Vitamin D (Vitamin D3 125 Mcg Tablet) 125 mcg PO QDAY [facility] Last Admin: 04/05/22 08:56 Dose: 125 mcg A/P Assessment and plan (1) Sepsis: Status: Acute (2) Cellulitis of back: Status: Acute (3) BPH (benign prostatic hyperplasia): Status: Chronic Qualifiers: Lower urinary tract symptom presence: symptoms present Lower urinary tract symptom detail: unspecified Qualified Code(s): N40.1 - Benign prostatic hyperplasia with lower urinary tract symptoms (4) Parkinsons disease: Status: Chronic (5) Hypothyroid: Status: Chronic Qualifiers: Hypothyroidism type: acquired Qualified Code(s): E03.9 - Hypothyroidism, unspecified (6) Essential hypertension: Status: Acute (7) Mixed dyslipidemia: Status: Acute (8) Anemia, normocytic normochromic: Status: Acute Narrative A/P Narrative: Assessment and Plans: 1. Sepsis associated with buttock decubitus ulcer/cellulitis: Inpatient med surg Serial lactic acid Procalcitonin 0.25 elevated ESR/CRP MRSA screening negative Blood culture, no growth to date s/p IV fluid bolus given in the ER, to be followed by NS@100cc/hr d/c Vancomycin Zosyn Wound care consult, recs. appreciated Physical therapy 2. Essential hypertension: Currently normotensive Amlodipine Lisinopril Hydralazine 10mg IV q4-6mg PRN SBP>=180 and/or DBP>=110mmHg 3. Mixed dyslipidemia: Continue to monitor 4. Parkinson's Disease: Carbidopa-Levodopa 5. BPH: Continue Flomax GI ppx: not currently indicated DVT ppx: Lovenox Code status: Full Prognosis: guarded Disposition: inpatient med surg; PT Time Spent With Patient Time: Total time spent is greater than 50% in coordination of care (as documented) at patient's floor/unit and/or counseling patient: Total time spent with greater than 50% in coordination of care (as documented) at patient's floor/unit and/or counseling patient:: 25 - 35 minutes QUALITY VTE Deep Vein Thrombosis/Pulmonary Embolism Present on Admission: No
[2022-04-05] MEDS: HYDROcodone/APAP 5/325MG TABLET PO PRN ×2 (18:08→21:05)
[2022-04-05] MEDS: SENNOSIDES 1 TABLET PO SCH (22:24)
[2022-04-06] MEDS: PIPERACILLIN SODIUM/TAZOBACTAM 3.375 GM in DEXTROSE 5% IN WATER 50 ML IV SCH ×4 (00:23→18:32)
[2022-04-06] MEDS: 0.9 % SODIUM CHLORIDE 1,000 ML IV SCH ×2 (04:20→13:30)
[2022-04-06] MEDS: HYDROcodone/APAP 5/325MG TABLET PO PRN ×3 (04:48→20:13)
[2022-04-06] MEDS: 0.9 % SODIUM CHLORIDE 10 ML SYRINGE IV SCH ×3 (05:52→20:14)
[2022-04-06 07:26] LABS: Basophils # (Auto) 0.04 K/mcL (0.00-0.30); Basophils % (Auto) 0.3 % (0.0-2.0); Eosinophils # (Auto) 0.27 K/mcL (0.00-0.70); Eosinophils % (Auto) 2.4 % (0.0-7.0); Hematocrit 32.6 % (40.1-51.0); Hemoglobin 11.3 g/dL (13.7-17.5); Lymphocytes % (Auto) 8.7 % (15.5-49.0); Mean Corpuscular HGB Conc 34.7 g/dL (31.0-36.0); Mean Platelet Volume 9.1 fL (8.8-12.5); Monocytes # (Auto) 1.02 K/mcL (0.10-0.90); Monocytes % (Auto) 8.9 % (1.0-12.0); Neutrophils % (Auto) 79.3 % (38.0-78.0); Platelet Count 194 K/mcL (140-440); RBC 3.43 M/mcL (4.63-6.08); Red Cell Distribution Width 12.2 % (11.5-14.5); WBC 11.4 K/mcL (4.5-11.0)
[2022-04-06 08:26] LABS: ALT/SGPT < 5 U/L (<40); AST/SGOT 13 U/L (<40); Albumin 2.9 gm/dL (3.2-5.2); Albumin/Globulin Ratio 1.5 (1.0-2.3); Alkaline Phosphatase 97 U/L (39-117); Bilirubin,Total 0.9 mg/dL (0.1-1.0); Blood Urea Nitrogen 14 mg/dL (8-23); Calcium 7.7 mg/dL (8.6-10.4); Carbon Dioxide 22 mmol/L (22-30); Chloride 98 mmol/L (96-108); Glomerular Filtration Rate 83; Glucose 92 mg/dL (70-105); Phosphorous 2.6 mg/dL (2.5-4.5)
[2022-04-06] MEDS: TAMSULOSIN 0.4 MG CAPSULE PO SCH ×2 (10:03→20:11)
[2022-04-06] MEDS: MELOXICAM 7.5 MG TABLET PO SCH (10:03)
[2022-04-06] MEDS: LISINOPRIL 20 MG TABLET PO SCH ×2 (10:03→20:20)
[2022-04-06] MEDS: METOPROLOL TARTRATE 50 MG TABLET PO SCH ×2 (10:03→20:10)
[2022-04-06] MEDS: LEVOTHYROXINE 50 MCG TABLET PO SCH (10:04)
[2022-04-06] MEDS: VENLAFAXINE 75 MG TABLET PO SCH ×2 (10:04→20:11)
[2022-04-06] MEDS: amLODIPine 5 MG TABLET PO SCH (10:04)
[2022-04-06] MEDS: MULTIVIT,THER IRON,CA,FA & MIN 1 TABLET PO SCH (10:04)
[2022-04-06] MEDS: DOCUSATE SODIUM 100 MG CAPSULE PO SCH ×2 (10:05→20:14)
[2022-04-06] MEDS: ASPIRIN 81 MG TAB.CHEW PO SCH (10:05)
[2022-04-06] MEDS: VITAMIN D3 125 MCG TABLET PO SCH (10:07)
[2022-04-06] MEDS: ENOXAPARIN 40 MG/0.4 ML SYRINGE SQ SCH (10:10)
[2022-04-06] MEDS: guaiFENesin 600 MG TAB.SR.12H PO SCH ×2 (10:14→20:11)
[2022-04-06] MEDS: POTASSIUM CHLORIDE 20 MEQ TABLET PO SCH ×2 (12:36→17:55)
[2022-04-06] MEDS: NYSTATIN POWDER BOTTLE 15GM TOPICAL SCH ×2 (13:31→20:14)
--- NOTE | 2022-04-06 14:56 | Internal Med Progress Note ---
SUBJECTIVE Subjective Patient information: Note initiated : 04/06/22 at 2:51 pm Service Date, if different from initiated Date: [] Patient: Kris Graham a 82 y/o M admitted on 04/04/22 for fever, cellulitis. Chief Complaint: [] Interval history: Mr. Graham is a 82 year old M history of Parkinson disease, essential hypertensions, mixed dyslipidemia, hypothyroidism, BPH, recently hospitalized in our facility about a week ago for buttock cellulitis with sepsis, being treated with empiric IV antibiotics Rocephin, being discharged on March 27, 2022 with oral antibiotics Keflex back to his assisted living facility [facility], presented back to the ED last evening after the staff found that he was having tachycardia, tachypnea, and fever. It is unclear if the patient has been compliant to his prescribed antibiotics. When he presented to the ED, his heart rate was in the low 100s, rate of breathing in the mid 20s, and fever with T- max 38.2 C. The patient himself does not have any complaint or discomfort or pain. He denies any subjective fever or chills at the moment. He denies any buttock pain or irritations. He denies any GI upset such as nausea vomiting diarrhea constipation's. He denies any confusions or lethargy. There was no culture growth from previous visit. Labs significant for WBC 21.9, H&H 13.6 and 39.3. Lactic acid 1.5. POC creatinine 1.0. Chest x-ray performed in the ED showed no acute abnormalities either. 04/05: Afebrile overnight. WBC decreased from 21.9-16.9. Culture no growth to date. MRSA screening negative. Patient denies any talk pain or irritations. He denies any subjective fever chills or diaphoresis. DC vancomycin. Continue Zosyn. Continue to monitor culture results. Continue IV fluids. Physical therapy evaluation and treatments for placement pending. Continue to touch base with wound care team for wound care management. 04/06: Afebrile overnight. WBC decreased from 16.9-->11.4. Culture no growth to date. He is only complaining of right shoulder pain and he denies any buttock pain. He denies any subjective fever chills or diaphoresis. Continue Zosyn. Saline lock. Continue to monitor culture results. PT--->recs. SNF placement. Continue to touch base with wound care team for wound care management. Constitutional Vitals: Vital Signs Temp Pulse Resp BP Pulse Ox O2 Del Method 37.5 C H 72 18 157/82 91 04/06/22 11:52 04/06/22 11:52 04/06/22 11:52 04/06/22 11:52 04/06/22 11:52 04/06/22 11:52 Period Temp Pulse Resp BP Sys/Norris Pulse Ox O2 Del Method O2 Flow Rate Last 24 Hr 36.3 C-37.5 C 54-93 18-24 128-157/69-82 91-97 Room Air-Room Air Intake and Output 04/06/22 04/06/22 04/06/22 05:59 13:59 21:59 Intake Total 1350 1240 240 Output Total 1 2 Balance 1349 1238 240 Intake & Output: Intake & Output 04/06/22 04/06/22 04/06/22 05:59 13:59 21:59 Intake Total 1350 1240 240 Output Total 1 2 Balance 1349 1238 240 Intake: IV 1050 1000 Sodium Chloride 0.9% 1,000 ml @ 1000 900 100 mls/hr IV .Q10H [facility] Rx#: [id number] Zosyn 3.375 gm In Dextrose 5% 50 100 in Water 50 ml @ 100 mls/hr IV Q6H [facility] Rx#:[id number] Oral 300 240 240 Output: # of times incontinent of urine 1 2 Other: Meal Breakfast Lunch Percent of Meal Consumed 75% 100% Feeding Ability Independent Independent Stool Size Small Moderate Stool Color Brown Brown Yellow Yellow Stool Consistency Soft Loose Loose # Voids 1 1 # Bowel Movements 1 1 # of times incontinent of 1 1 Bowels Head Head exam: Present atraumatic and normal inspection Eye Eye exam: Present normal appearance ENT ENT exam: Present mucous membranes moist, normal exam and normal external ear exam Neck Neck exam: Present normal inspection Respiratory Respiratory exam: Present normal respiratory exam Cardiovascular Cardiovascular exam: Present normal rate and rhythm GI/Abdominal GI/Abdominal exam: Present normal bowel sounds Back Exam Back exam: Present normal inspection Neurological Exam Neurological exam: Present alert and oriented X3 Additional comments: increased extremities tremors Skin Skin exam: Present erythema, intact and warm Additional comments: stage 1 ulcers bilateral buttock with erythema, warmth to touch OBJ DATA Labs CBC & Chem 7: 04/06/22 06:00 04/06/22 06:00 Labs: Abnormal Lab Results 04/06/22 04/06/22 04/05/22 06:00 06:00 05:51 WBC 11.4 H 16.9 H RBC 3.43 L 3.56 L Hgb 11.3 L 11.8 L Hct 32.6 L 34.3 L POC Hct Immature Gran % (Auto) 0.7 H Neut % (Auto) 79.3 H 83.4 H Lymph % (Auto) 8.7 L 7.6 L Lymph # (Auto) 1.00 L 1.28 L [place] # (Auto) 1.02 H 1.16 H Immature Gran # 0.11 H Absolute Neutrophils 9.06 H 14.06 H ESR POC VBG pH POC VBG pCO2 at Temp POC VBG pO2 POC Venous O2 Sat Sodium 130 L Potassium 3.2 L POC BUN POC Glucose Calcium 7.7 L POC WB Ioniz Calcium Total Bilirubin Alkaline Phosphatase C-Reactive Protein Total Protein 4.9 L Albumin 2.9 L Globulin 2.0 L Procalcitonin Urine Ketones 04/05/22 04/04/22 04/04/22 05:50 13:29 13:29 WBC RBC Hgb Hct POC Hct Immature Gran % (Auto) Neut % (Auto) Lymph % (Auto) Lymph # (Auto) [place] # (Auto) Immature Gran # Absolute Neutrophils ESR POC VBG pH POC VBG pCO2 at Temp POC VBG pO2 POC Venous O2 Sat Sodium 132 L Potassium POC BUN POC Glucose Calcium 8.1 L POC WB Ioniz Calcium Total Bilirubin 1.1 H Alkaline Phosphatase C-Reactive Protein 11.50 H Total Protein 5.3 L Albumin Globulin 2.1 L Procalcitonin 0.25 H Urine Ketones 04/04/22 04/03/22 04/03/22 13:29 20:09 19:16 WBC RBC Hgb Hct POC Hct 40.0 L Immature Gran % (Auto) Neut % (Auto) Lymph % (Auto) Lymph # (Auto) [place] # (Auto) Immature Gran # Absolute Neutrophils ESR 36 H POC VBG pH POC VBG pCO2 at Temp POC VBG pO2 POC Venous O2 Sat Sodium Potassium POC BUN 26 H POC Glucose 114 H Calcium POC WB Ioniz Calcium 1.14 L Total Bilirubin Alkaline Phosphatase C-Reactive Protein Total Protein Albumin Globulin Procalcitonin Urine Ketones 5 A 04/03/22 04/03/22 04/03/22 19:13 19:02 19:02 WBC 21.9 H RBC 4.16 L Hgb 13.6 L Hct 39.3 L POC Hct Immature Gran % (Auto) 1.6 H Neut % (Auto) 88.2 H Lymph % (Auto) 4.4 L Lymph # (Auto) 0.97 L [place] # (Auto) 1.09 H Immature Gran # 0.34 H Absolute Neutrophils 19.33 H ESR POC VBG pH 7.47 H POC VBG pCO2 at Temp 34.6 L POC VBG pO2 47 H POC Venous O2 Sat 86.0 H Sodium Potassium POC BUN POC Glucose Calcium POC WB Ioniz Calcium Total Bilirubin Alkaline Phosphatase 126 H C-Reactive Protein Total Protein Albumin Globulin Procalcitonin Urine Ketones Meds: Medications Acetaminophen (Acetaminophen 325 Mg Tablet) 325 mg PO Q4HP PRN PRN Reason: PAIN/FEVER > 101 Last Admin: 04/04/22 21:13 Dose: 325 mg Acetaminophen (Acetaminophen 325 Mg Tablet) 650 mg PO Q6HP PRN; Protocol PRN Reason: Per Pain Protocol/Fever > 101 Hydrocodone Bitart/Acetaminophen (Hydrocodone/Apap 5/325mg Tablet) 1 tab PO TIDP PRN; Protocol PRN Reason: Per Pain Protocol Last Admin: 04/06/22 12:37 Dose: 1 tab Hydrocodone Bitart/Acetaminophen (Hydrocodone/Apap 5/325mg Tablet) 1 tab PO TID PRN; Protocol PRN Reason: pain Albuterol/Ipratropium (Ipratropium/Albuterol 3 Ml Ampul.Neb) 3 ml NEB Q4HRT PRN PRN Reason: Wheezing Amlodipine Besylate (Amlodipine 5 Mg Tablet) 2.5 mg PO QDAY [facility] Last Admin: 04/06/22 10:04 Dose: 2.5 mg Aspirin (Aspirin 81 Mg Tab.Chew) 81 mg PO QDAY [facility] Last Admin: 04/06/22 10:05 Dose: 81 mg Docusate Sodium (Docusate Sodium 100 Mg Capsule) 100 mg PO BID [facility] Last Admin: 04/06/22 10:05 Dose: Not Given Enoxaparin Sodium (Enoxaparin 40 Mg/0.4 Ml Syringe) 40 mg SQ DAILY [facility] Last Admin: 04/06/22 10:10 Dose: 40 mg Guaifenesin (Guaifenesin 600 Mg Tab.Sr.12h) 600 mg PO Q12H [facility] Last Admin: 04/06/22 10:14 Dose: 600 mg Hydralazine HCl (Hydralazine 20 Mg/Ml Vial) 10 mg IV Q4-6HP PRN PRN Reason: Hypertension Piperacillin Sod/Tazobactam (Sod 3.375 gm/ Dextrose) 50 mls @ 100 mls/hr IV Q6H [facility]; Protocol Last Infusion: 04/06/22 13:10 Dose: Infused Iron Carb/Multivit/[place]/Folic Acid (Multivit,Ther Iron,Ca,Fa & Min 1 Tablet) 1 tab PO QAM [facility] Last Admin: 04/06/22 10:04 Dose: 1 tab Levothyroxine Sodium (Levothyroxine 50 Mcg Tablet) 50 mcg PO QDAY [facility] Last Admin: 04/06/22 10:04 Dose: 50 mcg Lisinopril (Lisinopril 20 Mg Tablet) 20 mg PO BID [facility] Last Admin: 04/06/22 10:03 Dose: 20 mg Magnesium Hydroxide (Magnesium Hydroxide 30 Ml Oral.Susp) 30 ml PO QDAY PRN PRN Reason: constipation Meloxicam (Meloxicam 7.5 Mg Tablet) 15 mg PO QDAY [facility] Last Admin: 04/06/22 10:03 Dose: 15 mg Metoprolol Tartrate (Metoprolol Tartrate 50 Mg Tablet) 100 mg PO BID [facility] Last Admin: 04/06/22 10:03 Dose: 100 mg Morphine Sulfate (Morphine 4 Mg/Ml Vial) 4 mg IV Q4HP PRN; Protocol PRN Reason: Per Pain Protocol Nystatin (Nystatin Powder Bottle 15gm) 1 dose TOPICAL BID [facility] Last Admin: 04/06/22 13:31 Dose: 1 dose Ondansetron HCl (Ondansetron 4 Mg/2 Ml Vial) 4 mg IV Q6HP PRN PRN Reason: Nausea And Vomiting Coenzyme Q10 100 Mg (Capsule) 1 dose PO QDAY [facility] Last Admin: 04/06/22 10:18 Dose: Not Given Carbidopa-Levodopa [ Rytary] 36.25-145 Mg Capsule 4 dose PO TID [facility] Last Admin: 04/06/22 10:15 Dose: 4 dose Miconazole Nitrate [ Remedy Antifungal] 2 % Powder 1 dose TOPICAL QDP PRN PRN Reason: INFECTION Polyethylene Glycol (Polyethylene Glycol 3350 17 Gm Packet) 17 gm PO QDAY PRN PRN Reason: constipation Potassium Chloride (Potassium Chloride 20 Meq Tablet) 20 meq PO BIDCC [facility] Last Admin: 04/06/22 12:36 Dose: 20 meq Senna (Sennosides 1 Tablet) 2 tab PO HS [facility] Last Admin: 04/05/22 22:24 Dose: Not Given Sodium Chloride (0.9 % Sodium Chloride 10 Ml Syringe) 10 ml IV Q8 [facility] Last Admin: 04/06/22 13:23 Dose: 10 ml Tamsulosin HCl (Tamsulosin 0.4 Mg Capsule) 0.4 mg PO BID [facility] Last Admin: 04/06/22 10:03 Dose: 0.4 mg Trazodone HCl (Trazodone Hcl 50 Mg Tablet) 25 mg PO HSP PRN PRN Reason: Insomnia Venlafaxine HCl (Venlafaxine 75 Mg Tablet) 75 mg PO BID [facility] Last Admin: 04/06/22 10:04 Dose: 75 mg Vitamin D (Vitamin D3 125 Mcg Tablet) 125 mcg PO QDAY [facility] Last Admin: 04/06/22 10:07 Dose: 125 mcg A/P Assessment and plan (1) Sepsis: Status: Acute (2) Cellulitis of back: Status: Acute (3) BPH (benign prostatic hyperplasia): Status: Chronic Qualifiers: Lower urinary tract symptom presence: symptoms present Lower urinary tract symptom detail: unspecified Qualified Code(s): N40.1 - Benign prostatic hyperplasia with lower urinary tract symptoms (4) Parkinsons disease: Status: Chronic (5) Hypothyroid: Status: Chronic Qualifiers: Hypothyroidism type: acquired Qualified Code(s): E03.9 - Hypothyroidism, unspecified (6) Essential hypertension: Status: Acute (7) Mixed dyslipidemia: Status: Acute (8) Anemia, normocytic normochromic: Status: Acute (9) Hypokalemia: Status: Acute Narrative A/P Narrative: Assessment and Plans: 1. Sepsis associated with buttock decubitus ulcer/cellulitis: Inpatient med surg Serial lactic acid Procalcitonin 0.25 elevated ESR/CRP Blood culture, no growth to date Saline lock Zosyn Wound care consult, recs. appreciated Physical therapy--->SNF 2. Essential hypertension: Currently normotensive Amlodipine Lisinopril Hydralazine 10mg IV q4-6mg PRN SBP>=180 and/or DBP>=110mmHg 3. Mixed dyslipidemia: Continue to monitor 4. Parkinson's Disease: Carbidopa-Levodopa 5. BPH: Continue Flomax 6. Hypokalemia: Potassium chloride PO replacement CMP in the morning to trend serum potassium level Also check serum Mg level and replace if needed GI ppx: not currently indicated DVT ppx: Lovenox Code status: Full Prognosis: guarded Disposition: inpatient med surg; PT-->SNF Time Spent With Patient Time: Total time spent is greater than 50% in coordination of care (as documented) at patient's floor/unit and/or counseling patient: QUALITY VTE Deep Vein Thrombosis/Pulmonary Embolism Present on Admission: No
[2022-04-06] MEDS: SENNOSIDES 1 TABLET PO SCH (20:14)
[2022-04-07] MEDS: PIPERACILLIN SODIUM/TAZOBACTAM 3.375 GM in DEXTROSE 5% IN WATER 50 ML IV SCH ×2 (00:16→06:26)
[2022-04-07] MEDS: ACETAMINOPHEN 325 MG TABLET PO PRN (00:30)
[2022-04-07] MEDS: 0.9 % SODIUM CHLORIDE 10 ML SYRINGE IV SCH (06:27)
[2022-04-07 06:57] LABS: Basophils # (Auto) 0.06 K/mcL (0.00-0.30); Basophils % (Auto) 0.7 % (0.0-2.0); Eosinophils # (Auto) 0.26 K/mcL (0.00-0.70); Eosinophils % (Auto) 2.9 % (0.0-7.0); Hematocrit 33.2 % (40.1-51.0); Hemoglobin 11.8 g/dL (13.7-17.5); Lymphocytes # (Auto) 1.29 K/mcL (1.50-4.80); Lymphocytes % (Auto) 14.1 % (15.5-49.0); Mean Cell Volume 93.5 fL (80.0-100.0); Mean Corpuscular HGB Conc 35.5 g/dL (31.0-36.0); Monocytes # (Auto) 0.99 K/mcL (0.10-0.90); Monocytes % (Auto) 10.9 % (1.0-12.0); Neutrophils % (Auto) 70.9 % (38.0-78.0); Platelet Count 216 K/mcL (140-440); RBC 3.55 M/mcL (4.63-6.08); WBC 9.1 K/mcL (4.5-11.0)
[2022-04-07 07:29] LABS: ALT/SGPT < 5 U/L (<40); AST/SGOT 12 U/L (<40); Albumin/Globulin Ratio 1.4 (1.0-2.3); Alkaline Phosphatase 95 U/L (39-117); Blood Urea Nitrogen 14 mg/dL (8-23); Calcium 8.2 mg/dL (8.6-10.4); Carbon Dioxide 23 mmol/L (22-30); Chloride 99 mmol/L (96-108); Globulin 2.2 gm/dL (2.2-3.7); Glomerular Filtration Rate 79; Glucose 82 mg/dL (70-105); Phosphorous 2.9 mg/dL (2.5-4.5)
[2022-04-07] MEDS: POTASSIUM CHLORIDE 20 MEQ TABLET PO SCH (07:44)
[2022-04-07] MEDS ORDERED: HYDROcodone/APAP 5/325MG TABLET PO PRN (07:45)
--- NOTE | 2022-04-07 08:35 | Discharge Summary ---
Discharge Provider Provider IMPORTANT FOLLOW-UP INFORMATION FOR PCP: Patient information: Note initiated : 04/07/22 at 8:32 am Service Date, if different from initiated Date: [] Patient: Kris Graham 82 y/o M admitted on 04/04/22 for fever, cellulitis. Chief Complaint: [] Date of admission: 04/04/22 12:45 Discharge date: 04/07/22 Primary care physician: Marcus Dawson MD Attending physician on admission: Vincent Forrest Consults: 04/04/22 Consult to Physician [CONS] Stat Comment: Consulting Provider: Vincent Forrest Reason For Exam: Physician to Consult 04/05/22 12:52 Consult to Physician [CONS] Routine Comment: snf referral Consulting Provider: [facility] Reason For Exam: Physician to Consult Attending physician on discharge: Vincent Forrest COURSE Hospital Course Hospital course: Mr. Graham is a 82 year old M history of Parkinson disease, essential hypertensions, mixed dyslipidemia, hypothyroidism, BPH, recently hospitalized in our facility about a week ago for buttock cellulitis with sepsis, being treated with empiric IV antibiotics Rocephin, being discharged on March 27, 2022 with oral antibiotics Keflex back to his assisted living facility [facility], presented back to the ED last evening after the staff found that he was having tachycardia, tachypnea, and fever. It is unclear if the patient has been compliant to his prescribed antibiotics. When he presented to the ED, his heart rate was in the low 100s, rate of breathing in the mid 20s, and fever with T- max 38.2 C. The patient himself does not have any complaint or discomfort or pain. He denies any subjective fever or chills at the moment. He denies any buttock pain or irritations. He denies any GI upset such as nausea vomiting diarrhea constipation's. He denies any confusions or lethargy. There was no culture growth from previous visit. Labs significant for WBC 21.9, H&H 13.6 and 39.3. Lactic acid 1.5. POC creatinine 1.0. Chest x-ray performed in the ED showed no acute abnormalities either. 04/05: Afebrile overnight. WBC decreased from 21.9-16.9. Culture no growth to date. MRSA screening negative. Patient denies any talk pain or irritations. He denies any subjective fever chills or diaphoresis. DC vancomycin. Continue Zosyn. Continue to monitor culture results. Continue IV fluids. Physical therapy evaluation and treatments for placement pending. Continue to touch base with wound care team for wound care management. 04/06: Afebrile overnight. WBC decreased from 16.9-->11.4. Culture no growth to date. He is only complaining of right shoulder pain and he denies any buttock pain. He denies any subjective fever chills or diaphoresis. Continue Zosyn. Saline lock. Continue to monitor culture results. PT--->recs. SNF placement. Continue to touch base with wound care team for wound care management. 04/07: Discharged to SNF. Discharge diagnosis: buttock decubitus ulcer Time Spent with Patient Time attestation: Total time spent providing and/or coordinating discharge services: Time spent: Greater than 30 minutes EXAM Constitutional Vitals: Temp Pulse Resp BP Pulse Ox O2 Del Method 37.1 C 68 20 151/98 95 04/07/22 07:53 04/07/22 07:53 04/07/22 07:53 04/07/22 07:53 04/07/22 07:53 04/07/22 07:53 General appearance: cooperative and no acute distress Head Head exam: Present atraumatic and normocephalic Eye Eye exam: Present EOMI and PERRL ENT ENT exam: Present mucous membranes moist, normal exam and normal external ear exam Neck Neck exam: Present normal inspection; Absent lymphadenopathy, tenderness or thyromegaly Respiratory Respiratory exam: Absent accessory muscle use, respiratory distress or wheezes Cardiovascular Cardiovascular exam: Present normal rate and rhythm; Absent JVD GI/Abdominal GI/Abdominal exam: Present normal bowel sounds and soft; Absent organomegaly or tenderness Rectal Rectal exam: Present deferred Extremities Exam Extremities exam: Present full ROM, normal capillary refill and normal inspection; Absent tenderness Neurological Exam Neurological exam: Present alert, CN II-XII intact and oriented X3; Absent motor sensory deficit Additional comments: increased extremities tremors Psychiatric Psychiatric exam: Present normal affect and normal mood; Absent anxious or depressed Skin Skin exam: Present dry and intact Additional comments: stage 1 ulcers bilateral buttock with erythema, warmth to touch Discharge Data Data Completed and Pending Labs on day of discharge: Labs from last 24 hours 04/07/22 04/07/22 05:55 05:55 WBC 9.1 RBC 3.55 L Hgb 11.8 L Hct 33.2 L MCV 93.5 MCH 33.2 MCHC 35.5 RDW 12.0 Plt Count 216 MPV 9.0 Immature Gran % (Auto) 0.5 Neut % (Auto) 70.9 Lymph % (Auto) 14.1 L [place] % (Auto) 10.9 Eos % (Auto) 2.9 Baso % (Auto) 0.7 Lymph # (Auto) 1.29 L [place] # (Auto) 0.99 H Eos # (Auto) 0.26 Baso # (Auto) 0.06 Immature Gran # 0.05 Absolute Neutrophils 6.47 Sodium 131 L Potassium 3.4 Chloride 99 Carbon Dioxide 23 Anion Gap 9.0 BUN 14 Creatinine 0.9 GFR Calculation 79 Glucose 82 Calcium 8.2 L Phosphorus 2.9 Magnesium 1.7 Total Bilirubin 1.0 AST 12 ALT < 5 Alkaline Phosphatase 95 Total Protein 5.2 L Albumin 3.0 L Globulin 2.2 Albumin/Globulin Ratio 1.4 Preliminary micro results at discharge 04/03/22 19:02 Blood Culture - Preliminary Blood 04/03/22 18:55 Blood Culture - Preliminary Blood Discharge Plan Patient/Caregiver Discharge Instructions Activity: increase activity as tolerated Diet: Regular Diet Prescriptions: New potassium chloride [Klor-Con M20] 20 mEq Tablet,Er Particles/Crystals 20 meq PO BIDCC 7 Days Qty: 14 0RF amoxicillin-pot clavulanate [Augmentin XR] 1,000-62.5 mg tablet extended release 12 hr 1 tab PO BID Qty: 20 0RF Continued clonidine HCl 0.1 mg tablet 0.1 mg PO Q8H PRN (Reason: hypertensive emergency) Qty: 90 0RF Rx Instructions: As needed for BP > 160/100 levothyroxine 50 mcg tablet 50 mcg PO QDAY 90 Days Qty: 90 3RF lisinopril 20 mg tablet 20 mg PO BID 90 Days Qty: 180 3RF meloxicam 15 mg tablet 15 mg PO QDAY 90 Days Qty: 90 3RF venlafaxine 75 mg tablet 75 mg PO BID 90 Days Qty: 180 1RF metoprolol tartrate 100 mg tablet 100 mg PO BID 90 Days Qty: 180 3RF amlodipine 2.5 mg tablet 2.5 mg PO QDAY Qty: 90 1RF nystatin 100,000 unit/gram powder 1 applic topical BID Qty: 60 1RF tamsulosin 0.4 mg capsule 0.4 mg PO BID 90 Days Qty: 180 3RF docusate sodium 100 mg capsule 100 mg PO QDAY 90 Days Qty: 90 1RF multivitamin [Multiple Vitamins] Tablet 1 tab PO QAM aspirin 81 mg tablet,delayed release (DR/EC) 81 mg PO QDAY coenzyme Q10 100 mg capsule 100 mg PO QDAY cholecalciferol (vitamin D3) 125 mcg (5,000 unit) capsule 125 mcg PO QDAY Rytary 36.25-145 mg capsule, extended release 4 cap PO TID guaifenesin 600 mg tablet extended release 12hr 600 mg PO Q12H Remedy Antifungal 2 % powder See Rx Instructions topical .COMPLEX PRN (Reason: Incontinence) Rx Instructions: topical; acetaminophen 325 mg tablet 650 mg PO Q4H PRN (Reason: [place], Mild-Mod Joint Pain, Fever>99.9) polyethylene glycol 3350 [ClearLax] 17 gram/dose powder 17 g PO QDAY PRN (Reason: constipation) magnesium hydroxide [Milk of Magnesia] 400 mg/5 mL suspension 30 ml PO QDAY PRN (Reason: constipation) hydrocodone-acetaminophen 5-325 mg tablet 1 tab PO TID PRN (Reason: pain) Qty: 20 0RF Discontinued cephalexin 500 mg capsule 500 mg PO QID Qty: 12 0RF Follow Up Plan Follow up with: Marcus Dawson MD [Primary Care Provider] - Patient Disposition: Xfer SNF Prognosis: Fair Rehab Potential: Good I certify that the patient requires SNF services: Yes Overall status at discharge: patient is back to baseline Discharge Orders: Discharge Order (Routine); Ordered 04/07/22 Ordered By: Vincent ANDERSON VTE Deep Vein Thrombosis/Pulmonary Embolism Present on Admission: No
[2022-04-07] MEDS: ASPIRIN 81 MG TAB.CHEW PO SCH (09:10)
[2022-04-07] MEDS: METOPROLOL TARTRATE 50 MG TABLET PO SCH (09:10)
[2022-04-07] MEDS: amLODIPine 5 MG TABLET PO SCH (09:10)
[2022-04-07] MEDS: LISINOPRIL 20 MG TABLET PO SCH (09:10)
[2022-04-07] MEDS: MULTIVIT,THER IRON,CA,FA & MIN 1 TABLET PO SCH (09:10)
[2022-04-07] MEDS: LEVOTHYROXINE 50 MCG TABLET PO SCH (09:10)
[2022-04-07] MEDS: VENLAFAXINE 75 MG TABLET PO SCH (09:11)
[2022-04-07] MEDS: MELOXICAM 7.5 MG TABLET PO SCH (09:11)
[2022-04-07] MEDS: VITAMIN D3 125 MCG TABLET PO SCH (09:11)
[2022-04-07] MEDS: TAMSULOSIN 0.4 MG CAPSULE PO SCH (09:11)
[2022-04-07] MEDS: NYSTATIN POWDER BOTTLE 15GM TOPICAL SCH (09:25)
[2022-04-07] MEDS: ENOXAPARIN 40 MG/0.4 ML SYRINGE SQ SCH (09:25)
[2022-04-07] MEDS: DOCUSATE SODIUM 100 MG CAPSULE PO SCH (09:28)
[2022-04-07] MEDS: guaiFENesin 600 MG TAB.SR.12H PO SCH (09:30)
== END 2022-04-07 11:05 | DRG 872 ==
LOC: ED 18:28 → MEDSUR 04-04 12:45
PROVIDERS: ADMIT Internal Medicine; ATTEND Internal Medicine